=== PATIENT | female | born 1990 | race Caucasian/White ===

== ENCOUNTER 2016-05-30 15:04 | Emergency (ER) | payer OTHER ==
[2016-05-30] MEDS ORDERED: ONDANSETRON 4 MG/2 ML VIAL IVP STA (16:01)
[2016-05-30] MEDS ORDERED: SODIUM CHLORIDE 0.9% 1,000 ML IV STA (16:01)
[2016-05-30] MEDS ORDERED: KETOROLAC 30 MG/ML 1 ML VIAL IVP STA (16:01)
[2016-05-30 16:55] LABS: Appearance,Urine Cloudy (Clear); Bacteria,Urine Rare /hpf; Bilirubin,Urine Negative (Negative); Calcium Oxalate Crystals,Urine Few /hpf; Glucose,Urine (UA) Negative (Negative); Ketones,Urine 2+ (Negative); Leukocyte Esterase,Urine Small (Negative); Mucus,Urine Many /hpf; Nitrite,Urine Negative (Negative); PH, Urine 5.5 (5.0-8.0); Particle Count 15376; Protein,Urine Trace (Negative); RBC,Urine 9 /hpf (0-5); Specific Gravity,Urine 1.025 (1.001-1.035); Squamous Epithelial Cell,Urine 12 /hpf (0-4); UA Billing (MACRO vs. MICRO) MICRO; WBC,Urine 16 /hpf (0-5)
[2016-05-30 16:59] LABS: Basophils % (A) 0 %; CH 31.1; Eosinophils % (A) 0 %; HCT 52.2 % (34.0-46.0); HGB 17.5 gm/dL (11.4-16.0); Luc # (Auto) 0.07; Luc % (Auto) 1; Lymphocytes # (A) 1.1 k/uL (1.0-4.8); Lymphocytes % (A) 17 %; MCH 30.7 pg (25.0-35.0); MCHC 33.5 g/dL (31.0-37.0); MCV 91.7 fL (80.0-100.0); Mean Platelet Volume 6.8; Monocytes # (A) 0.4 k/uL (0-1.0); Monocytes % (A) 6 %; Neutrophils % (A) 76 %; RBC 5.69 m/uL (3.80-5.40); RDW 12.3 % (11.5-15.5); WBC 6.6 k/uL (3.8-10.6); WBC (Perox) 6.78
[2016-05-30 17:03] LABS: ALT 28 U/L (9-52); AST 20 U/L (14-36); Alkaline Phosphatase 65 U/L (38-126); Amylase 37 U/L (30-110); Anion Gap 15 mmol/L; Blood Urea Nitrogen 10 mg/dL (7-17); Calcium 10.5 mg/dL (8.4-10.2); Carbon Dioxide 26 mmol/L (22-30); Chloride 102 mmol/L (98-107); Glucose 107 mg/dL (74-99); Non-African American GFR(MDRD) >60 (>60 ml/min/1.73 sqM); Potassium 5.5 mmol/L (3.5-5.1); Sodium 143 mmol/L (137-145); Total Bilirubin 0.7 mg/dL (0.2-1.3); Total Protein 8.4 g/dL (6.3-8.2)
--- NOTE | 2016-05-30 17:07 | ED ---
Abdominal Pain HPI - General Chief Complaint: Abdominal Pain Stated Complaint: SOB/Dizzy Time Seen by Provider: 05/30/16 15:53 Source: patient, RN notes reviewed Mode of arrival: ambulatory Limitations: no limitations - History of Present Illness Initial Comments: Is a 25-year-old female presents emergency Department chief complaint epigastric pain. Patient states his pain has been for last few days. Patient states she's had nausea vomiting. Patient states she also had some loose stool. Patient states that she's had no pain at this the past. Denies any chance of . Patient denies any dysuria or hematuria. Patient states that she's been unable to eat secondary to pain and the nausea. She states she feels that she is very dizzy and having some shortness of breath. Patient states that when she curls up into all the disposition and helps. Patient denies any cough or chest congestion. Denies any fever or chills. Denies any sick contacts. CPS is in the room at the time and she states that somebody made allegations regarding her kids. Patient denies any illicit drug use. Patient states she is concerned about possible chlamydia exposure - Related Data Previous Rx's Medication Instructions Recorded Famotidine [Pepcid] 20 mg PO BID #28 tablet 05/30/16 Ondansetron Odt [Zofran Odt] 4 mg PO Q8HR PRN #7 tab 05/30/16 Allergies Allergy/AdvReac Type Severity Reaction Status Date / Time No Known Allergies Allergy Verified 05/30/16 16:17 Review of Systems ROS Statement: Those systems with pertinent positive or pertinent negative responses have been documented in the HPI. ROS Other: All systems not noted in ROS Statement are negative. Past Medical History Past Medical History: No Reported History History of Any Multi-Drug Resistant Organisms: None Reported Past Surgical History: Tonsillectomy Past Psychological History: Depression Smoking Status: Current every day smoker Past Alcohol Use History: None Reported Past Drug Use History: None Reported General Exam Limitations: no limitations General appearance: alert, in no apparent distress Head exam: Present: atraumatic, normocephalic, normal inspection Neck exam: Present: normal inspection, full ROM. Absent: tenderness, meningismus, lymphadenopathy Respiratory exam: Present: normal lung sounds bilaterally. Absent: respiratory distress, wheezes, rales, rhonchi, stridor Cardiovascular Exam: Present: regular rate, normal rhythm, normal heart sounds. Absent: systolic murmur, diastolic murmur, rubs, gallop, clicks GI/Abdominal exam: Present: soft, tenderness (Mild epigastric tenderness), normal bowel sounds. Absent: distended, guarding, rebound, rigid Back exam: Absent: CVA tenderness (R), CVA tenderness (L) Neurological exam: Present: alert, oriented X3, CN II-XII intact Skin exam: Present: warm, dry, intact, normal color. Absent: rash Course Vital Signs 05/30/16 15:41 Temperature 98.0 F Pulse Rate 100 Respiratory 18 Rate Blood Pressure 99/65 O2 Sat by Pulse 100 Oximetry - Reevaluation(s) Reevaluation #1: 05/30/16 17:40 Patient was updated on lab results and reevaluated. Patient states her epigastric pain is slightly improved. Patient was informed that she needs a pelvic exam for her STD check though she does not want that she states that her boyfriend are he knows that he has chlamydia and she is requesting treatment. Patient will have urine chlamydia though it's less specific. Medical Decision Making - Medical Decision Making 25-year-old female presented for epigastric pain and dizziness. Patient's x- rays within normal limits. Patient does have polysubstance abuse which includes vitamins, methamphetamine and cocaine. Have a long discussion regarding her drug abuse and possible heart conditions. Patient states that she understands. Patient be discharged with Pepcid for her epigastric discomfort. - Lab Data Result diagrams: 05/30/16 16:33 05/30/16 16:33 Lab Results 05/30/16 05/30/16 05/30/16 Range/Units 16:33 16:33 16:33 WBC 6.6 (3.8-10.6) k/uL RBC 5.69 H (3.80-5.40) m/uL Hgb 17.5 H (11.4-16.0) gm/dL Hct 52.2 H (34.0-46.0) % MCV 91.7 (80.0-100.0) fL MCH 30.7 (25.0-35.0) pg MCHC 33.5 (31.0-37.0) g/dL RDW 12.3 (11.5-15.5) % Plt Count 341 (150-450) k/uL Neutrophils % 76 % Lymphocytes % 17 % Monocytes % 6 % Eosinophils % 0 % Basophils % 0 % Neutrophils # 5.0 (1.3-7.7) k/uL Lymphocytes # 1.1 (1.0-4.8) k/uL Monocytes # 0.4 (0-1.0) k/uL Eosinophils # 0.0 (0-0.7) k/uL Basophils # 0.0 (0-0.2) k/uL Sodium 143 (137-145) mmol/L Potassium 5.5 H (3.5-5.1) mmol/L Chloride 102 (98-107) mmol/L Carbon Dioxide 26 (22-30) mmol/L Anion Gap 15 mmol/L BUN 10 (7-17) mg/dL Creatinine 0.72 (0.52-1.04) mg/dL Est GFR (MDRD) Af Amer >60 (>60 ml/min/1.73 sqM) Est GFR (MDRD) Non-Af >60 (>60 ml/min/1.73 sqM) Glucose 107 H (74-99) mg/dL Calcium 10.5 H (8.4-10.2) mg/dL Total Bilirubin 0.7 (0.2-1.3) mg/dL AST 20 (14-36) U/L ALT 28 (9-52) U/L Alkaline Phosphatase 65 (38-126) U/L Total Protein 8.4 H (6.3-8.2) g/dL Albumin 5.1 H (3.5-5.0) g/dL Amylase 37 (30-110) U/L Lipase 23 (23-300) U/L Urine Color Yellow Urine Appearance Cloudy H (Clear) Urine pH 5.5 (5.0-8.0) Ur Specific [place] 1.025 (1.001-1.035) Urine Protein Trace H (Negative) Urine Glucose (UA) Negative (Negative) Urine Ketones 2+ H (Negative) Urine Blood Negative (Negative) Urine Nitrate Negative (Negative) Urine Bilirubin Negative (Negative) Urine Urobilinogen 2.0 (<2.0) mg/dL Ur Leukocyte Esterase Small H (Negative) Urine RBC 9 H (0-5) /hpf Urine WBC 16 H (0-5) /hpf Ur Squamous Epith Cells 12 H (0-4) /hpf Calcium Oxalate Crystal Few H (None) /hpf Urine Bacteria Rare H (None) /hpf Urine Mucus Many H (None) /hpf Urine HCG, Qual (Not Detectd) Urine Opiates Screen Not Detected (NotDetected) Ur Oxycodone Screen Not Detected (NotDetected) Urine Methadone Screen Not Detected (NotDetected) Ur Propoxyphene Screen Not Detected (NotDetected) Ur Barbiturates Screen Not Detected (NotDetected) U Tricyclic Antidepress Not Detected (NotDetected) Ur Phencyclidine Scrn Not Detected (NotDetected) Ur Amphetamines Screen Detected H (NotDetected) U Methamphetamines Scrn Detected H (NotDetected) U Benzodiazepines Scrn Not Detected (NotDetected) Urine Cocaine Screen Detected H (NotDetected) U Marijuana (THC) Screen Not Detected (NotDetected) 05/30/16 Range/Units 16:33 WBC (3.8-10.6) k/uL RBC (3.80-5.40) m/uL Hgb (11.4-16.0) gm/dL Hct (34.0-46.0) % MCV (80.0-100.0) fL MCH (25.0-35.0) pg MCHC (31.0-37.0) g/dL RDW (11.5-15.5) % Plt Count (150-450) k/uL Neutrophils % % Lymphocytes % % Monocytes % % Eosinophils % % Basophils % % Neutrophils # (1.3-7.7) k/uL Lymphocytes # (1.0-4.8) k/uL Monocytes # (0-1.0) k/uL Eosinophils # (0-0.7) k/uL Basophils # (0-0.2) k/uL Sodium (137-145) mmol/L Potassium (3.5-5.1) mmol/L Chloride (98-107) mmol/L Carbon Dioxide (22-30) mmol/L Anion Gap mmol/L BUN (7-17) mg/dL Creatinine (0.52-1.04) mg/dL Est GFR (MDRD) Af Amer (>60 ml/min/1.73 sqM) Est GFR (MDRD) Non-Af (>60 ml/min/1.73 sqM) Glucose (74-99) mg/dL Calcium (8.4-10.2) mg/dL Total Bilirubin (0.2-1.3) mg/dL AST (14-36) U/L ALT (9-52) U/L Alkaline Phosphatase (38-126) U/L Total Protein (6.3-8.2) g/dL Albumin (3.5-5.0) g/dL Amylase (30-110) U/L Lipase (23-300) U/L Urine Color Urine Appearance (Clear) Urine pH (5.0-8.0) Ur Specific [place] (1.001-1.035) Urine Protein (Negative) Urine Glucose (UA) (Negative) Urine Ketones (Negative) Urine Blood (Negative) Urine Nitrate (Negative) Urine Bilirubin (Negative) Urine Urobilinogen (<2.0) mg/dL Ur Leukocyte Esterase (Negative) Urine RBC (0-5) /hpf Urine WBC (0-5) /hpf Ur Squamous Epith Cells (0-4) /hpf Calcium Oxalate Crystal (None) /hpf Urine Bacteria (None) /hpf Urine Mucus (None) /hpf Urine HCG, Qual Not Detected (Not Detectd) Urine Opiates Screen (NotDetected) Ur Oxycodone Screen (NotDetected) Urine Methadone Screen (NotDetected) Ur Propoxyphene Screen (NotDetected) Ur Barbiturates Screen (NotDetected) U Tricyclic Antidepress (NotDetected) Ur Phencyclidine Scrn (NotDetected) Ur Amphetamines Screen (NotDetected) U Methamphetamines Scrn (NotDetected) U Benzodiazepines Scrn (NotDetected) Urine Cocaine Screen (NotDetected) U Marijuana (THC) Screen (NotDetected) 05/30/16 17:42 EKG performed at 17:41 normal sinus rhythm rate of 90, AK interval 128, QRS duration 72, QT/QTC 378/462 Disposition Clinical Impression: Polysubstance abuse, Gastritis, Dizziness Disposition: HOME SELF-CARE Condition: Stable Instructions: Gastritis (ED) Additional Instructions: Please return to the Emergency Department if symptoms worsen or any other concerns. Prescriptions: Famotidine [Pepcid] 20 mg PO BID #28 tablet Ondansetron Odt [Zofran Odt] 4 mg PO Q8HR PRN #7 tab PRN Reason: Nausea Time of Disposition: 17:43
--- NOTE | 2016-05-30 17:14 | XR ---
EXAMINATION TYPE: XR chest 2V DATE OF EXAM: 05/30/2016 5:10 PM COMPARISON: 10/27/2015 HISTORY: Weakness and abdominal pain TECHNIQUE: Frontal and lateral views of the chest are obtained. FINDINGS: Heart and mediastinum are normal. Lungs are clear. Diaphragm is normal. Bony thorax and so ft tissues appear normal. IMPRESSION: Normal chest. No change.
--- NOTE | 2016-05-30 17:16 | XR ---
EXAMINATION TYPE: XR KUB DATE OF EXAM: 05/30/2016 5:10 PM COMPARISON: NONE HISTORY: Weakness TECHNIQUE: 2 views FINDINGS: There is no sign of intestinal obstruction or pneumoperitoneum. Fecal pattern on the left side is normal. There are some fluid levels in the right colon. There are no pathologic calcification s over the kidneys. Bony structures are intact. IMPRESSION: There are some large bowel air-fluid levels that could relate to diarrhea. No free air.
[2016-05-30] MEDS ORDERED: cefTRIAXone 250 MG VIAL IM STA (17:42)
[2016-05-30] MEDS ORDERED: AZITHROMYCIN 250 MG TAB PO STA (17:42)
[2016-05-30 17:50] VITALS: BP 101/55; PULSE 96; RESP 16; TEMP 99
== END 2016-05-30 18:13 | disposition home or self-care (01) ==
LOC: EC 15:04
DX: K29.70 Gastritis, unspecified, without bleeding (principal); R42 Dizziness and giddiness; F19.10 Other psychoactive substance abuse, uncomplicated; R11.2 Nausea with vomiting, unspecified; F17.200 Nicotine dependence, unspecified, uncomplicated
CPT/HCPCS: 36415; 93005; 80053; 82150; 83690; 85025; 81001; 81025; 87491; 87591; 80306; 71020; 74000; 99284; 96374; 96375; 96372; 96361; J2405; J0696; J1885

== ENCOUNTER 2017-11-21 13:46 | Emergency (ER) | payer OTHER ==
[2017-11-21 13:51] VITALS: RESP 20
[2017-11-21] MEDS ORDERED: SODIUM CHLORIDE 0.9% 1,000 ML IV STA (15:23)
[2017-11-21 15:45] LABS: Basophils # (A) 0.1 k/uL (0-0.2); Basophils % (A) 0 %; Eosinophils % (A) 0 %; HCT 35.6 % (34.0-46.0); HGB 12.2 gm/dL (11.4-16.0); Lymphocytes # (A) 2.7 k/uL (1.0-4.8); Lymphocytes % (A) 23 %; MCH 30.8 pg (25.0-35.0); MCHC 34.4 g/dL (31.0-37.0); MCV 89.7 fL (80.0-100.0); Mean Platelet Volume 6.5; Monocytes # (A) 0.8 k/uL (0-1.0); Monocytes % (A) 7 %; Neutrophils # (A) 7.8 k/uL (1.3-7.7); Neutrophils % (A) 68 %; Platelet Count 355 k/uL (150-450); RBC 3.96 m/uL (3.80-5.40); RDW 13.2 % (11.5-15.5); WBC 11.4 k/uL (3.8-10.6)
[2017-11-21 15:51] LABS: ALT 22 U/L (9-52); AST 19 U/L (14-36); Albumin 3.5 g/dL (3.5-5.0); Alkaline Phosphatase 59 U/L (38-126); Amylase 55 U/L (30-110); Anion Gap 8 mmol/L; Blood Urea Nitrogen 6 mg/dL (7-17); Carbon Dioxide 18 mmol/L (22-30); Chloride 109 mmol/L (98-107); Glucose 85 mg/dL (74-99); Lipase 35 U/L (23-300); Sodium 135 mmol/L (137-145); Total Bilirubin 0.3 mg/dL (0.2-1.3); Total Protein 6.2 g/dL (6.3-8.2)
[2017-11-21 16:07] LABS: HCG,Quantitative Serum 14035.4 mIU/mL
--- NOTE | 2017-11-21 16:51 | US ---
EXAMINATION TYPE: US OB >= 14 wk fetus DATE OF EXAM: 11/21/2017 COMPARISON: None CLINICAL HISTORY: RLQ pain x 2 days, 5, para 1, 3 TECHNIQUE: Transabdominal (TA) GESTATIONAL AGE / DATING Physician Established: Not established yet Dates by LMP: Unknown Dates by First Scan: This is 1st scan Dates by Current Scan: (25 weeks/4 days) EDC: 03/02/2018 SURVEY IUP: Single PLACENTA: Anterior PREVIA: No Previa EMILY: 12.3 cm Normal CERVICAL LENGTH (transabdominal: norm > 3.0cm): 3.3 cm BIOMETRY PRESENTATION: Breech LIE: Longitudinal BPD: 6.4 cm 25 weeks / 6 days HC: 24.5 cm 26 weeks / 4 days AC: 21.1 cm 25 weeks / 5 days FL: 4.7 cm 25 weeks / 4 days ESTIMATED WEIGHT IN GRAMS: 848 grams ESTIMATED WEIGHT IN LBS/OZ: 1 lbs. 14 oz. WEIGHT PERCENTAGE BASED ON ESTABLISHED DATES: n/a HC/AC: 1.16 Normal FL/AC: 22.19 Normal HEART RATE: 142 bpm RHYTHM: Normal IMPRESSION: VIABLE SINGLE IUP MEASURING 25 WEEKS 4 DAYS WITH A HEART RATE OF 142BPM AND ESTIMATED DELIVERY DATE O F 03/02/2018.
--- NOTE | 2017-11-21 16:53 | US ---
EXAMINATION TYPE: US abdomen complete DATE OF EXAM: 11/21/2017 COMPARISON: NONE CLINICAL HISTORY: abdominal pain. RLQ pain x 2 days, not NPO, patient is 25 weeks EXAM MEASUREMENTS: Liver Length: 15.0 cm Gallbladder Wall: 0.2 cm CBD: 0.3 cm Spleen: 11.3 cm Right Kidney: 11.5 x 5.5 x 5.2 cm Left Kidney: 12.2 x 5.8 x 5.5 cm Pancreas: obscured Liver: wnl Gallbladder: wnl Evidence for sonographic Sethi's sign: no CBD: wnl Spleen: wnl Right Kidney: wnl Left Kidney: wnl Upper IVC: wnl Abd Aorta: obscured IMPRESSION: NO ACUTE PROCESS.
--- NOTE | 2017-11-21 17:29 | ED ---
Abdominal Pain HPI - General Chief Complaint: Abdominal Pain Stated Complaint: abd pain, Time Seen by Provider: 11/21/17 15:14 Source: patient Mode of arrival: ambulatory Limitations: no limitations - History of Present Illness Initial Comments: 77 years O female comes in with the abdominal pain now she has a pain in the right lower quadrant area she is nauseous last menstrual. She doesn't know that because she is on a double shot and her periods are quite irregular she denies any vaginal bleeding no spotting she believes she is she did a test at home it was positive no fever no chills no headaches no neck stiffness no chest pain or shortness of breath no pleuritic chest pain no frequency urgency dysuria - Related Data Previous Rx's Medication Instructions Recorded Famotidine [Pepcid] 20 mg PO BID #28 tablet 05/30/16 Ondansetron Odt [Zofran Odt] 4 mg PO Q8HR PRN #7 tab 05/30/16 Allergies Allergy/AdvReac Type Severity Reaction Status Date / Time No Known Allergies Allergy Verified 11/21/17 13:51 Review of Systems ROS Statement: Those systems with pertinent positive or pertinent negative responses have been documented in the HPI. ROS Other: All systems not noted in ROS Statement are negative. Past Medical History Past Medical History: No Reported History History of Any Multi-Drug Resistant Organisms: None Reported Past Surgical History: Tonsillectomy Past Psychological History: Depression Smoking Status: Current every day smoker Past Alcohol Use History: None Reported Past Drug Use History: None Reported General Exam - General Exam Comments Initial Comments: General: The patient is awake and alert, in no distress, and does not appear acutely ill. Skin: Skin is warm and dry and no rashes or lesions are noted. Eye: Pupils are equal, round and reactive to light, extra-ocular movements are intact; there is normal conjunctiva bilaterally. Ears, nose, mouth and throat: There are moist mucous membranes and no oral lesions. Neck: The neck is supple, there is no tenderness or JVD. Cardiovascular: There is a regular rate and rhythm. No murmur, rub or gallop is appreciated. Respiratory: To auscultation bilateral, no wheezing no rhonchi no distress respiratory mora noticed Gastrointestinal: Tenderness noticed in the right side of the abdomen is in the lower quadrant area positive bowel sounds no guarding no rebounds Back: There is no tenderness to palpation in the midline. There is no obvious deformity. Musculoskeletal: Normal ROM, no tenderness, There is no pedal edema. There is no calf tenderness or swelling. No cords were appreciated. Neurological: CN II-XII intact, Cranial nerves III through XII are intact. There are no obvious motor or sensory deficits. Coordination appears grossly intact. Speech is normal. Psychiatric: Cooperative, appropriate mood & affect, normal judgment. Limitations: no limitations Course Vital Signs 11/21/17 13:47 Temperature 98.9 F Pulse Rate 125 H Respiratory 20 Rate Blood Pressure 111/62 O2 Sat by Pulse 100 Oximetry Ultrasound of the pelvis showed viable intrauterine 25 weeks heart rate the baby is 142 THE abdomen for the appendicitis is negative his white count is fine she's afebrile and initial heart rate when she came to was documented 25 I rechecked it myself at 1725 it was 98. related findings were discussed with the patient she was to see Dr. Mosqueda for the follow-up she be referred to Dr. Mosqueda Medical Decision Making - Lab Data Result diagrams: 11/21/17 15:31 11/21/17 15:31 Lab Results 11/21/17 11/21/17 Range/Units 15:31 15:31 WBC 11.4 H (3.8-10.6) k/uL RBC 3.96 (3.80-5.40) m/uL Hgb 12.2 (11.4-16.0) gm/dL Hct 35.6 (34.0-46.0) % MCV 89.7 (80.0-100.0) fL MCH 30.8 (25.0-35.0) pg MCHC 34.4 (31.0-37.0) g/dL RDW 13.2 (11.5-15.5) % Plt Count 355 (150-450) k/uL Neutrophils % 68 % Lymphocytes % 23 % Monocytes % 7 % Eosinophils % 0 % Basophils % 0 % Neutrophils # 7.8 H (1.3-7.7) k/uL Lymphocytes # 2.7 (1.0-4.8) k/uL Monocytes # 0.8 (0-1.0) k/uL Eosinophils # 0.0 (0-0.7) k/uL Basophils # 0.1 (0-0.2) k/uL Sodium 135 L (137-145) mmol/L Potassium 4.0 (3.5-5.1) mmol/L Chloride 109 H (98-107) mmol/L Carbon Dioxide 18 L (22-30) mmol/L Anion Gap 8 mmol/L BUN 6 L (7-17) mg/dL Creatinine 0.40 L (0.52-1.04) mg/dL Est GFR (CKD-EPI)AfAm >90 (>60 ml/min/1.73 sqM) Est GFR (CKD-EPI)NonAf >90 (>60 ml/min/1.73 sqM) Glucose 85 (74-99) mg/dL Calcium 9.0 (8.4-10.2) mg/dL Total Bilirubin 0.3 (0.2-1.3) mg/dL AST 19 (14-36) U/L ALT 22 (9-52) U/L Alkaline Phosphatase 59 (38-126) U/L Total Protein 6.2 L (6.3-8.2) g/dL Albumin 3.5 (3.5-5.0) g/dL Amylase 55 (30-110) U/L Lipase 35 (23-300) U/L HCG, Quant 27720.4 mIU/mL Disposition Clinical Impression: , Abdominal pain Disposition: HOME SELF-CARE Condition: Good Instructions: Abdominal Pain (ED), Abdominal Pain in (ED) Is patient prescribed a controlled substance at d/c from ED?: No Referrals: Lainey Jensen MD [Primary Care Provider] - 1-2 days Elena Mosqueda DO [Doctor of Osteopathic Medicine] - 1-2 days
[2017-11-21 17:43] VITALS: BP 124/77; PULSE 82; TEMP 98
== END 2017-11-21 17:44 | disposition home or self-care (01) ==
LOC: EC 13:46
DX: O99.89 Other specified diseases and conditions complicating pregnancy, childbirth and the puerperium (principal); R10.31 Right lower quadrant pain; R11.0 Nausea; O99.332 Smoking (tobacco) complicating pregnancy, second trimester; F17.200 Nicotine dependence, unspecified, uncomplicated; Z3A.25 25 weeks gestation of pregnancy
CPT/HCPCS: 36415; 76700; 76805; 80053; 82150; 83690; 84702; 85025; 96360; 96361; 99284

== ENCOUNTER 2018-01-07 23:30 | Outpatient (CLI) | payer OTHER ==
[2018-01-08 00:31] LABS: Amorphous Sediment,Urine Rare /hpf; Appearance,Urine Cloudy (Clear); Bacteria,Urine Rare /hpf; Bilirubin,Urine Negative (Negative); Blood,Urine Negative (Negative); Color,Urine Light Yellow; Glucose,Urine (UA) Negative (Negative); Ketones,Urine Negative (Negative); Leukocyte Esterase,Urine Negative (Negative); Mucus,Urine Rare /hpf; Nitrite,Urine Negative (Negative); Protein,Urine Negative (Negative); RBC,Urine 1 /hpf (0-5); Specific Gravity,Urine 1.011 (1.001-1.035); Squamous Epithelial Cell,Urine 6 /hpf (0-4); Urobilinogen,Urine <2.0 mg/dL (<2.0); WBC,Urine 3 /hpf (0-5)
[2018-01-08 00:32] LABS: Amphetamine Screen,Urine Not Detected (NotDetected); Barbiturate Screen,Urine Not Detected (NotDetected); Benzodiazepines Screen,Urine Not Detected (NotDetected); Cocaine Screen,Urine Not Detected (NotDetected); Methadone Screen, Urine Not Detected (NotDetected); Opiate Screen,Urine Not Detected (NotDetected); Oxycodone Screen, Urine Not Detected (NotDetected); Phencyclidine Screen,Urine Not Detected (NotDetected); Tricyclic Antidepressant,Urine Not Detected (NotDetected); Urn Cannabinoid Scrn Not Detected (NotDetected)
[2018-01-08 00:37] LABS: Basophils % (A) 0 %; Eosinophils % (A) 0 %; HCT 33.6 % (34.0-46.0); HGB 11.3 gm/dL (11.4-16.0); Lymphocytes # (A) 2.8 k/uL (1.0-4.8); Lymphocytes % (A) 24 %; MCH 29.8 pg (25.0-35.0); MCHC 33.6 g/dL (31.0-37.0); MCV 88.9 fL (80.0-100.0); Mean Platelet Volume 7.5; Monocytes # (A) 0.9 k/uL (0-1.0); Monocytes % (A) 8 %; Neutrophils # (A) 7.8 k/uL (1.3-7.7); Neutrophils % (A) 66 %; Platelet Count 316 k/uL (150-450); RBC 3.79 m/uL (3.80-5.40); RDW 13.5 % (11.5-15.5); WBC 11.9 k/uL (3.8-10.6)
[2018-01-08 01:18] VITALS: BP 126/79; PULSE 127; RESP 15; TEMP 98
[2018-01-08 12:38] LABS: HIV 1 AB Non-Reactive (Non-Reactive); HIV AB P24 Non-Reactive (Non-Reactive); HIV P24 AG Non-Reactive (Non-Reactive)
--- NOTE | 2018-01-08 13:16 | P.MSEPDOC ---
Presenting Problems - Arrival Data Date of Arrival on Unit: 01/07/18 Time of Arrival on Unit: 23:30 Mode of Transport: Wheelchair - Complaint OB-Reason for Admission/Chief Complaint: Pain, Other Medical History - Information : 5 Para: 1 Term: 1 : 0 Abortions: Spontaneous or Elective: 3 Number of Living Children: 1 - Gestational Age Gestational Age by ZULEIMA (wks/days): 32 Weeks and 3 Days - History Complications: No Care, Smoker Review of Systems - Review of Systems Constitutional: No problems Breast: No problems ENT: No problems Cardiovascular: No problems Respiratory: No problems Gastrointestinal: No problems Genitourinary: No problems Musculoskeletal: No problems Neurological: No problems Skin: No problems Vital Signs - Temperature Temperature: 98 F Temperature Source: Oral - Pulse Pulse Oximetery Pulse Rate: 127 Pulse Assessment Method: Automatic Cuff - Respirations Respiratory Rate: 15 Oxygen Delivery Method: Room Air O2 Sat by Pulse Oximetry: 98 - Blood Pressure Right Arm Blood Pressure: 126/79 Blood Pressure Mean: 94 Blood Pressure Source: Automatic Cuff Medical Screen Scoring (Pre) - Cervical Exam Dilation: 0 cm = 0 Membranes: Intact - Uterine Contractions Frequency: N/A Duration: N/A - Maternal Vital Signs Maternal Temperature: N/A Maternal Blood Pressure: N/A Signs of Preeclampsia: N/A Maternal Respirations: N/A - Pain Assessment Pain Location and Character: Perineal Pain Scale Used: Numeric (1 - 10) Pain Intensity: 2 Pain Management Goal: 2 Pain Description: *Acute, Aching Pain Radiation Location: none Pain Frequency: Intermittent Pain Duration: 2 Pain Duration Units: Days Pain Behavior: Fidgeting Effects of Pain: none Pain Aggravating Factors: None - Maternal Trauma Maternal Trauma: N/A - Assessment Baseline FHR: 135 Heart Rate - NICHD Category: Category I (Normal) = 0 NST: Reactive Position: N/A Station: N/A - Total Score Total Score (Pre): 0 - Level of Risk Level of Risk: Low (0-5) Physician Notification (Pre) - Physician Notified Physician Notified Date: 01/08/18 Physician Notified Time: 01:02 Physician/Practitioner Notifed:: Dr Moon New Order Received: Yes Disposition - Disposition OB Disposition: Discharge to home Discharge Date: 01/08/18 Discharge Time: 01:18 I agree with the RN Medical Screening Exam: Yes Risk & Benefit of care provided described in d/c instruction: Yes Diagnosis: RELATED CONDITIONS, UNSPECIFIED, THIRD TRIMESTER
== END 2018-01-08 01:20 | disposition home or self-care (01) ==
LOC: FBPOP 23:30
PROVIDERS: ATTEND Obstetrics & Gynecology
DX: Z53.9 Procedure and treatment not carried out, unspecified reason (principal)
CPT/HCPCS: 59025; 80306; 81001; 82947; 84112; 85025; 86762; 86780; 86850; 86900; 86901; 87340; 87390; 87491; 87591; 99213

== ENCOUNTER 2018-01-14 17:50 | Outpatient (CLI) | payer OTHER ==
[2018-01-14 20:45] VITALS: BP 110/71; PULSE 111; RESP 18; TEMP 97.5
--- NOTE | 2018-03-13 18:31 | P.MSEPDOC ---
Presenting Problems - Arrival Data Date of Arrival on Unit: 01/14/18 Time of Arrival on Unit: 18:50 Mode of Transport: Ambulatory - Complaint OB-Reason for Admission/Chief Complaint: Possible Onset of Labor Comment: started about 1729 Medical History - Information : 2 Para: 1 Term: 1 : 0 Abortions: Spontaneous or Elective: 0 Number of Living Children: 1 - Gestational Age Gestational Age by ZULEIMA (wks/days): 34 Weeks and 4 Days - History Complications: No Care Review of Systems - Review of Systems Constitutional: No problems Breast: No problems ENT: No problems Cardiovascular: No problems Respiratory: No problems Gastrointestinal: No problems Genitourinary: No problems Musculoskeletal: No problems Neurological: No problems Skin: No problems Vital Signs - Temperature Temperature: 97.5 F Temperature Source: Temporal Artery Scan - Pulse Right Sitting Pulse Rate: 111 Pulse Assessment Method: Automatic Cuff - Respirations Respiratory Rate: 18 Oxygen Delivery Method: Room Air - Blood Pressure Right Arm Sitting Blood Pressure: 110/71 Blood Pressure Mean: 84 Blood Pressure Source: Automatic Cuff Medical Screen Scoring (Pre) - Cervical Exam Dilation: 0 cm = 0 Membranes: Intact - Uterine Contractions Frequency: N/A Duration: N/A Intensity: N/A - Maternal Vital Signs Maternal Temperature: N/A Maternal Blood Pressure: N/A Signs of Preeclampsia: N/A Maternal Respirations: N/A - Pain Assessment Pain Intensity: 0 - Maternal Trauma Maternal Trauma: N/A - Assessment Baseline FHR: 135 Heart Rate - NICHD Category: Category I (Normal) = 0 NST: Reactive Position: N/A Station: N/A - Total Score Total Score (Pre): 0 - Level of Risk Level of Risk: Low (0-5) Physician Notification (Pre) - Physician Notified Physician Notified Date: 01/14/18 Physician Notified Time: 19:36 Physician/Practitioner Notifed:: DR ALBERTO New Order Received: Yes - Notification Comment Comment: d/c home, keep apt for [facility] Disposition - Disposition OB Disposition: Discharge to home, Written follow up instructions reviewed Discharge Date: 01/14/18 Discharge Time: 19:45 I agree with the RN Medical Screening Exam: Yes Risk & Benefit of care provided described in d/c instruction: Yes Diagnosis: FALSE LABOR BEFORE 37 COMPLETED WEEKS OF GEST, THIRD TRI
== END 2018-01-14 19:45 | disposition home or self-care (01) ==
LOC: FBPOP 17:50
PROVIDERS: ATTEND Obstetrics & Gynecology Obstetrics
DX: O47.03 False labor before 37 completed weeks of gestation, third trimester (principal); Z3A.34 34 weeks gestation of pregnancy
CPT/HCPCS: 59025; G0463; 99213

== ENCOUNTER 2018-02-21 21:19 | Inpatient (IN) | payer OTHER ==
[2018-02-21] MEDS ORDERED: CITRIC ACID-SODIUM CITRATE 15 ML CUP PO ONE (21:55)
[2018-02-21] MEDS ORDERED: LACTATED RINGERS 1,000 ML IV ONE (21:55)
[2018-02-21] MEDS ORDERED: DEXTROSE 5% IVPB STA ×2 (21:58)
[2018-02-21] MEDS ORDERED: WATER IVPB STA ×2 (21:58)
[2018-02-21] MEDS ORDERED: PENICILLIN POTASSIUM IVPB STA ×2 (21:58)
[2018-02-21 22:18] LABS: Basophils % (A) 0 %; Eosinophils % (A) 0 %; HCT 36.2 % (34.0-46.0); HGB 11.8 gm/dL (11.4-16.0); Lymphocytes # (A) 2.9 k/uL (1.0-4.8); Lymphocytes % (A) 30 %; MCH 28.3 pg (25.0-35.0); MCHC 32.7 g/dL (31.0-37.0); MCV 86.6 fL (80.0-100.0); Mean Platelet Volume 7.3; Monocytes # (A) 0.8 k/uL (0-1.0); Monocytes % (A) 8 %; Neutrophils # (A) 5.7 k/uL (1.3-7.7); Neutrophils % (A) 58 %; Platelet Count 346 k/uL (150-450); RBC 4.19 m/uL (3.80-5.40); RDW 14.6 % (11.5-15.5); WBC 9.8 k/uL (3.8-10.6)
[2018-02-21] MEDS ORDERED: MORPHINE SULFATE (PF) 0.3 MG/0.3 ML SYR ONE (22:36)
[2018-02-21] MEDS ORDERED: fentaNYL (PF) 50 MCG/ML 2 ML AMP ONE (22:36)
[2018-02-21] MEDS ORDERED: MIDAZOLAM 2 MG/2 ML VIAL ONE (22:36)
[2018-02-21] MEDS ORDERED: ONDANSETRON 4 MG/2 ML VIAL ONE (22:36)
[2018-02-21] MEDS ORDERED: OXYTOCIN 10 UNIT/ML 1 ML VIAL ONE (22:36)
[2018-02-21] MEDS ORDERED: KETOROLAC 30 MG/ML 1 ML VIAL ONE (22:36)
[2018-02-21] MEDS ORDERED: DEXAMETHASONE SOD PHOS (MDV) 100 MG/10 ML VIAL ONE (22:36)
--- NOTE | 2018-02-21 22:37 | P.HPOB ---
History of Present Illness H&P Date: 02/21/18 Chief Complaint: My water broke at 8 PM This is a 27-year-old white female 5 para 1031 EDC 03/05/2018 at 38-2/7 weeks' gestation. Patient has known breech hernandez is scheduled for C- section in 2 days. However, she broke her water at 8 PM tonight, clear fluid. Fetus is been active throughout the . She denies vaginal bleeding or fluid leakage. history is significant for late care. Patient has decided to give her baby up for adoption, adoptive parents are in [place] and have been notified. Past medical history is significant for chlamydia 2, most recent cultures negative in December 2017. Patient also has a history of anxiety and depression, currently on no meds. She has a history of asthma. Past surgical history is negative. Social history patient is single, father of the baby is not involved. She is a history of tobacco smoking, denies alcohol or drug use. Obstetric history blood type is A+, rubella status immune. Hepatitis B surface antigen, HIV testing negative. Group B strep cultures positive. One-hour Glucola 83. Urine drug screen, gonorrhea and chlamydia cultures all negative. ALLERGIES none known. Current medications vitamins daily, inhaler as needed. On exam this is a pleasant white female who is 5 foot 6 inches, 177 pounds, blood pressure 137/79. The general physical exam is within normal limits. Patient does have multiple tattoos on her body. Chest is clear in all [place]. Extremities reveal no edema. Cervix is 1-2 cm dilated, soft, obviously ruptured with clear fluid, non-malodorous. The infant is breech per Jeb's maneuver, confirmed with bedside ultrasound with the head in the patient's left upper quadrant. heart tones consistent with reactive NST. Impression: 38-2/7 weeks intrauterine , breech presentation confirmed by bedside ultrasound, spontaneous amniorrhexis of membranes. Rupee strep cultures positive. Plan: Penicillin G 6 million units is given. Anesthesia staff is aware. Plan is for primary low transverse section at this time. All risks and benefits of procedure have been discussed with the patient in detail, and I believe she understands our discussion. Adoptive parents from [place] have been notified, and on their way. They are 8-9 hours away by car. Review of Systems Constitutional: Reports as per HPI Past Medical History Past Medical History: Cancer Additional Past Medical History / Comment(s): SKIN. Asthma,depression History of Any Multi-Drug Resistant Organisms: None Reported Past Surgical History: Tonsillectomy Past Anesthesia/Blood Transfusion Reactions: No Reported Reaction Smoking Status: Current every day smoker - Past Family History Mother Family Medical History: No Reported History Medications and Allergies Home Medications Medication Instructions Recorded Confirmed Type Pnv No.95/Ferrous Fum/Folic AC 1 tab PO DAILY 01/14/18 02/21/18 History [ Multivitamin Tablet] Allergies Allergy/AdvReac Type Severity Reaction Status Date / Time No Known Allergies Allergy Verified 02/21/18 21:53 Exam Intake and Output 02/21/18 02/21/18 02/21/18 06:59 14:59 22:59 Other: Weight 80.286 kg See dictation under HPI please Results Result Diagrams: 02/21/18 22:08 Assessment and Plan Assessment: 38-2/7 weeks intrauterine , breech presentation, spontaneous amniorrhexis, clear fluid. Positive group B strep cultures. Plan: First dose of penicillin G has been given. Anesthesia staff aware. We will proceed with primary low transverse section. Adoptive parents on route from out of state. Time with Patient: Less than 30
[2018-02-21] MEDS ORDERED: NALBUPHINE 10 MG/ML VIAL (10ML MDV) IV PRN (23:35)
[2018-02-21] MEDS ORDERED: diphenhydrAMINE 50 MG/ML 1 ML VIAL IVP PRN ×3 (23:35→23:45)
[2018-02-21] MEDS ORDERED: NALOXONE 0.4 MG/ML 1 ML VIAL IV PRN ×2 (23:35→23:45)
[2018-02-21] MEDS ORDERED: HYDROmorphone 0.5 MG/0.5 ML SYRINGE IVP PRN (23:35)
[2018-02-21] MEDS ORDERED: HYDROmorphone 1 MG/ML 1 ML SYRINGE IVP PRN (23:37)
[2018-02-21] MEDS ORDERED: diphenhydrAMINE 25 MG CAP PO PRN (23:45)
[2018-02-21] MEDS ORDERED: ACETAMINOPHEN TAB 325 MG TAB PO PRN (23:45)
[2018-02-21] MEDS ORDERED: METOCLOPRAMIDE 5 MG/ML 2 ML VIAL IVP PRN (23:45)
[2018-02-21] MEDS ORDERED: ZOLPIDEM 5 MG TAB PO PRN (23:45)
[2018-02-21] MEDS ORDERED: IBUPROFEN 600 MG TAB PO PRN (23:45)
[2018-02-21] MEDS ORDERED: diphenhydrAMINE 50 MG CAP PO PRN (23:45)
[2018-02-21] MEDS ORDERED: ONDANSETRON 4 MG/2 ML VIAL IVP PRN (23:45)
--- NOTE | 2018-02-21 23:45 | P.OP ---
Date of Procedure: 02/21/18 Preoperative Diagnosis: 38-2/7 weeks intrauterine , breech presentation, spontaneous amniorrhexis, positive group B strep cultures Postoperative Diagnosis: Liveborn female , 3610 g, 7 lbs. 15 oz., normal-appearing tubes and ovaries, breech presentation. Procedure(s) Performed: Primary low transverse section Anesthesia: spinal Surgeon: Julieta Martinez Small Kick Press Operator #1: Natalie Mcdaniels Estimated Blood Loss (ml): 200 IV fluids (ml): 1,200 Urine output (ml): 30 Pathology: none sent Condition: stable Disposition: PACU Description of Procedure: Patient has a known breech presentation, scheduled for section in 2 days. She however presented with spontaneous amniorrhexis, clear fluid. Antibiotics are given. Consent is reviewed signed witnessed and dated. Adoptive parents are notified, they are arriving from [place], 7-8 hours away. Patient is brought to the operating suite where a spinal analgesia with Duramorph is given. Germain catheter placed to direct drainage. She is then placed in the dorsal lithotomy position with left lateral uterine displacement. The appropriate timeout is performed to assure proper patient and procedural identification. The analgesia is checked and noted to be adequate. A low transverse skin incision is made in this is carried down through the subcutaneous tissue to the fascia. Fascia is isolated, scored and extended bilaterally with curved Astudillo scissors. Peritoneum is next identified and incised, there is no bowel or bladder involvement. Bladder flap is made with Metzenbaum scissors and at all times the bladder is Well from the operative field to avoid bladder and/or ureteral injury. A low transverse uterine incision is made in this is carried down through the myometrium. The cavity is entered and the incision is extended bilaterally with blunt dissection. Sacrum is rotated to anterior. The breech is delivered easily, Pinard maneuver issues for the lower extremities. A blue towel was wrapped over the 's trunk and Pinard maneuver is once again used to deliver the upper extremities. The head is delivered in a flexed position. Patient is officially delivered of a liveborn female at 05/20/2000 hours. Umbilical cord is doubly clamped and ligated, she is handed to waiting nurses for evaluation where scores of 6 and 7 at one and 5 minutes, 9 at 10 minutes were given. The placenta is delivered manually, it is inspected and noted to be intact with trivascular cord at 05/20/2001 hours. The uterus is then externalized and massaged. It is swept clean with a sterile sponge to avoid any retained products of conception. The uterus is closed in a two-step fashion, first layer running locking 0 Vicryl, second layer imbricated. There is a fibroid noted in the lower uterine segment near the site of the incision. Hemostasis is excellent. Bilateral tubes and ovaries are inspected and noted to be normal. Suction with guard is used posterior to the uterus and then the uterus is gently placed back into the abdominal cavity. Bilateral gutters are inspected and cleaned. Uterine incision is clean and dry and fully intact. Peritoneum was allowed close by secondary intention. Fascia is closed in a running stitch of 0 Vicryl with over ligation in the midline for excellent reapproximation. Subcutaneous tissue is irrigated, noted to be clean and dry. It is reapproximated with 3-0 Vicryl in a running fashion. 4-0 undyed Vicryl issues for final skin closure. Steri-Strips and Mastisol are applied to the wound. All sponge needle and enhancement counts are correct at the end of the procedure. Total estimated blood loss 200 mL's. Germain is noted to be draining clear urine. All sponge needle and instrument counts are correct at the end of the procedure. Patient is brought back to recovery room in stable condition, blood pressure 108/62, pulse 91. Adoptive parents are contacted, they are on the road, they are reassured that this is a is doing well.
[2018-02-22] MEDS: ALBUTEROL NEBULIZED 2.5 MG/3 ML INHALATION PRN ×2 (00:20→07:01)
[2018-02-22 02:18] VITALS: BMI 28.5
[2018-02-22] MEDS: LACTATED RINGERS 1,000 ML IV SCH ×3 (03:04→23:32)
[2018-02-22] MEDS: NICOTINE 14MG/24HR PATCH TRANSDERM SCH (03:05)
[2018-02-22 07:06] LABS: Basophils % (A) 0 %; Eosinophils % (A) 0 %; HCT 32.2 % (34.0-46.0); HGB 10.5 gm/dL (11.4-16.0); Lymphocytes # (A) 1.8 k/uL (1.0-4.8); Lymphocytes % (A) 10 %; MCHC 32.6 g/dL (31.0-37.0); Mean Platelet Volume 7.5; Monocytes # (A) 0.7 k/uL (0-1.0); Monocytes % (A) 4 %; Neutrophils % (A) 85 %; Platelet Count 314 k/uL (150-450); RBC 3.62 m/uL (3.80-5.40); RDW 14.5 % (11.5-15.5); WBC 17.7 k/uL (3.8-10.6)
[2018-02-22] MEDS: SENNOSIDES-DOCUSATE SODIUM 1 EACH TAB PO SCH ×2 (07:45→22:01)
[2018-02-22] MEDS: KETOROLAC 30 MG/ML 1 ML VIAL IVP PRN ×2 (07:50→15:45)
[2018-02-22] MEDS ORDERED: ALBUTEROL NEBULIZED 2.5 MG/3 ML INHALATION PRN (08:12)
--- NOTE | 2018-02-22 08:20 | P.PNOBGPC ---
Subjective - Subjective Principal diagnosis: POD 1 LTCS Breech Interval history: Patient did well overnight, she states her pain is well-controlled, she is ambulating and voiding without difficulty. She is hungry and requesting a regular diet at this time. She states her lochia is minimal. She is planning to get the baby up for adoption at this time. Patient reports: Reports appetite normal, Reports voiding normally, Reports pain well controlled, Reports ambulating normally Reliance: doing well (Giving the baby up for adoption) Objective - Vital Signs Latest vital signs: Vital Signs Temp Pulse Pulse Pulse Pulse Resp BP 02/22/18 07:11 104 H 02/22/18 07:01 104 H 02/22/18 05:45 16 02/22/18 04:35 02/22/18 04:00 97.6 F 98 16 02/22/18 02:35 16 02/22/18 02:17 98.1 F 104 H 18 02/22/18 01:33 98.6 F 90 16 02/22/18 01:03 100 16 02/22/18 00:35 100 16 02/22/18 00:33 70 16 02/22/18 00:20 100 02/22/18 00:18 71 16 109/58 02/22/18 00:03 87 16 118/62 02/21/18 23:48 81 16 127/71 02/21/18 23:35 16 02/21/18 23:33 98.6 F 95 16 127/69 BP BP Pulse Ox 02/22/18 07:11 02/22/18 07:01 02/22/18 05:45 02/22/18 04:35 97 02/22/18 04:00 116/63 97 02/22/18 02:35 02/22/18 02:17 137/79 02/22/18 01:33 153/67 97 02/22/18 01:03 140/66 97 02/22/18 00:35 100 02/22/18 00:33 02/22/18 00:20 02/22/18 00:18 98 02/22/18 00:03 100 02/21/18 23:48 100 02/21/18 23:35 98 02/21/18 23:33 98 Intake and Output 02/21/18 02/22/18 02/22/18 22:59 06:59 14:59 Output Total 430 Balance -430 Output: Urine 230 Estimated Blood Loss 200 Other: # Voids 1 Weight 80.286 kg 80.286 kg - Exam Extremities: Present: normal Abdomen: Present: normal appearance, soft Incision: Present: normal, dry, intact Uterus: Present: normal, firm - Labs Labs: Abnormal Lab Results - Last 24 Hours (Table) 02/22/18 Range/Units 06:22 WBC 17.7 H (3.8-10.6) k/uL RBC 3.62 L (3.80-5.40) m/uL Hgb 10.5 L (11.4-16.0) gm/dL Hct 32.2 L (34.0-46.0) % Neutrophils # 15.0 H (1.3-7.7) k/uL Assessment and Plan (1) Term Current Visit: Yes Status: Acute Code(s): Z34.80 - ENCOUNTER FOR SUPRVSN OF NORMAL , UNSP TRIMESTER SNOMED Code(s): 44546758 (2) Breech presentation Current Visit: Yes Status: Acute Code(s): O32.1XX0 - MATERNAL CARE FOR BREECH PRESENTATION, UNSP SNOMED Code(s): 7940590 (3) S/P section Current Visit: Yes Status: Acute Code(s): Z98.891 - HISTORY OF UTERINE SCAR FROM PREVIOUS SURGERY SNOMED Code(s): 229719951 Plan: Patient is doing well postoperatively, and we will continue routine postoperative care. I will anticipate discharge tomorrow morning.
[2018-02-22] MEDS ORDERED: NICOTINE 14MG/24HR PATCH TRANSDERM SCH (09:00)
[2018-02-22] MEDS ORDERED: PRENATAL VIT-IRON-FOLIC ACID 1 EACH CAP PO SCH (12:00)
--- NOTE | 2018-02-22 13:13 | P.PN ---
Progress Note - Text Anesthesia POD 1. Patient is status post section under spinal anesthesia with intra-thecal preservative free morphine and 100 g. Mild pruritus, good post-op analgesia, and no headache or other complications.
[2018-02-22 19:04] VITALS: RESP 16
[2018-02-22] MEDS: HYDROcodone/APAP 5-325MG 1 EACH TAB PO PRN (22:00)
[2018-02-23] MEDS: NICOTINE 14MG/24HR PATCH TRANSDERM SCH (07:09)
[2018-02-23] MEDS: HYDROcodone/APAP 5-325MG 1 EACH TAB PO PRN ×3 (07:13→16:00)
[2018-02-23 08:00] VITALS: TEMP 97.5
[2018-02-23] MEDS: SENNOSIDES-DOCUSATE SODIUM 1 EACH TAB PO SCH (08:02)
[2018-02-23] MEDS: ALBUTEROL NEBULIZED 2.5 MG/3 ML INHALATION PRN (08:16)
--- NOTE | 2018-02-23 08:45 | P.DS ---
Providers Date of admission: 02/21/18 21:49 Expected date of discharge: 02/23/18 Attending physician: Noelle Harris Primary care physician: Stated None - Discharge Diagnosis(es) (1) Term Current Visit: Yes Status: Acute (2) Breech presentation Current Visit: Yes Status: Acute (3) S/P section Current Visit: Yes Status: Acute Hospital Course: This is a 27-year-old 2 para 1 at 38-2/7 weeks that presented to labor and delivery with spontaneous rupture of membranes. Patient had known breech presentation and was taken for primary low transverse section secondary to breech presentation. was performed without difficulty for further details on the please see the operative report. Patient delivered a viable female at 2301, weight of 7 lbs. 15 oz., Apgars of 679 at one and 5 and 10 minutes respectively. Patient is giving this baby up for adoption and the adoptive parents are here on the unit. Patient's postoperative course has been uneventful. She is ambulating and voiding without difficulty. She is tolerating a regular diet without nausea or vomiting. She states her pain is controlled with oral medication. Patient Condition at Discharge: Good Plan - Discharge Summary New Discharge Prescriptions: No Action Pnv No.95/Ferrous Fum/Folic AC [ Multivitamin Tablet] 1 tab PO DAILY Albuterol Inhaler [Ventolin Hfa Inhaler] 2 puff INHALATION Q6HR PRN PRN Reason: Dyspnea Discharge Medication List Pnv No.95/Ferrous Fum/Folic AC [ Multivitamin Tablet] 1 tab PO DAILY [History] Albuterol Inhaler [Ventolin Hfa Inhaler] 2 puff INHALATION Q6HR PRN 02/22/18 [ History] Follow up Appointment(s)/Referral(s): Noelle Harris DO [Doctor of Osteopathic Medicine] - 2 Weeks Patient Instructions/Handouts: (DC), (GEN) Activity/Diet/Wound Care/Special Instructions: No tub baths or intercourse until appointment Discharge Disposition: HOME SELF-CARE
[2018-02-23 15:55] VITALS: BP 114/67; PULSE 79
== END 2018-02-23 19:15 | disposition home or self-care (01) | DRG 788 ==
LOC: FBPOP 21:19 → 4FBP 21:49
PROVIDERS: ADMIT Obstetrics & Gynecology; ATTEND Obstetrics & Gynecology Obstetrics
PROC: 10D00Z1 Extraction of Products of Conception, Low, Open Approach (ICD-10-PCS; principal; 2018-02-21 22:34)
DX: O32.1XX0 Maternal care for breech presentation, not applicable or unspecified (principal); O99.334 Smoking (tobacco) complicating childbirth; F17.200 Nicotine dependence, unspecified, uncomplicated; Z3A.38 38 weeks gestation of pregnancy; Z37.0 Single live birth; O99.824 Streptococcus B carrier state complicating childbirth
CPT/HCPCS: 85025; 86850; 86900; 86901; 94640

== ENCOUNTER 2019-12-09 19:45 | Outpatient (CLI) | payer OTHER ==
[2019-12-09 21:34] VITALS: BP 130/70; PULSE 100; RESP 18; TEMP 98.4
--- NOTE | 2019-12-17 11:30 | P.MSEPDOC ---
Presenting Problems - Arrival Data Date of Arrival on Unit: 12/09/19 Time of Arrival on Unit: 19:45 Mode of Transport: EMS - Complaint OB-Reason for Admission/Chief Complaint: Possible Onset of Labor, Rule Out PROM Comment: gush of bloody mucus at 1830 and contractions since last night Medical History - Information : 3 Para: 2 Term: 2 : 0 Abortions: Spontaneous or Elective: 0 Number of Living Children: 2 - Gestational Age Gestational Age by ZULEIMA (wks/days): 26 Weeks and 6 Days - History Complications: Prior , Hx. Substance Abuse Sexually Transmitted Diseases: HSV Comment: Hx of meth and marijuana use prior to being in nursing home Review of Systems - Review of Systems Constitutional: No problems Breast: No problems ENT: No problems Cardiovascular: No problems Respiratory: No problems Gastrointestinal: No problems Genitourinary: No problems Musculoskeletal: No problems Neurological: No problems Skin: No problems Vital Signs - Temperature Temperature: 98.4 F Temperature Source: Temporal Artery Scan - Pulse Pulse Oximetery Pulse Rate: 100 Pulse Assessment Method: Pulse Oximetry - Respirations Respiratory Rate: 18 Oxygen Delivery Method: Room Air O2 Sat by Pulse Oximetry: 99 - Blood Pressure Right Arm Blood Pressure: 130/70 Blood Pressure Mean: 90 Blood Pressure Source: Automatic Cuff Medical Screen Scoring (Pre) - Cervical Exam Dilation: 0 cm = 0 Effacement: Exam Deferred Membranes: Intact - Uterine Contractions Frequency: N/A Duration: N/A Intensity: N/A - Maternal Vital Signs Maternal Temperature: N/A Maternal Blood Pressure: N/A Signs of Preeclampsia: N/A Maternal Respirations: N/A - Maternal Trauma Maternal Trauma: N/A - Assessment - Baby A Baseline FHR: 145 Heart Rate - NICHD Category: Category I (Normal) = 0 Position: N/A Station: N/A - Total Score - Baby A Total Score - Baby A: 0 - Total Score - Baby B Total Score - Baby B: 0 - Total Score - Baby C Total Score - Baby C: 0 - Level of Risk - Baby A Level of Risk - Baby A: Low (0-5) - Level of Risk - Baby B Level of Risk - Baby B: Low (0-5) - Level of Risk - Baby C Level of Risk - Baby C: Low (0-5) Physician Notification (Pre) - Physician Notified Physician Notified Date: 12/09/19 Physician Notified Time: 20:45 New Order Received: Yes - Notification Comment Comment: Dr. Martinez called, report given on maternal and status, Pt has complains. of sharp lower abdominal and back pain since last night and a "gush of bloody mucus". around 1830 today. FFN collected, amnisure negative, SVE closed/thick/high. Abdomen soft to palpation even when pt states she is having the pain. No blood seen upon exam. Pt has been in nursing home since 10/08/19, no intercourse and denies any drug use since June(previously meth and marijuana). No contractions seen on the monitor and FHR is reactive for 26weeks. Pt has a hx of prior (does not know the reason) and an outbreak of genital herpes on 11/14/19 and is currently being treated. Orders to discharge pt back to the nursing home with instructions to make an appointment with Dr. Richmond within 1 week. Disposition - Disposition OB Disposition: Physician follow up in office, Discharge to home Discharge Date: 12/09/19 Discharge Time: 21:10 I agree with the RN Medical Screening Exam: Yes Risk & Benefit of care provided described in d/c instruction: Yes Diagnosis: SPOTTING COMPLICATING , SECOND TRIMESTER
== END 2019-12-09 21:10 | disposition home or self-care (01) ==
LOC: FBPOP 19:45
PROVIDERS: ATTEND Obstetrics & Gynecology
DX: O26.852 Spotting complicating pregnancy, second trimester (principal); Z3A.26 26 weeks gestation of pregnancy
CPT/HCPCS: 96360; 96361; 84112; G0463; 99213; 99214

== ENCOUNTER 2020-01-22 18:15 | Outpatient (CLI) | payer OTHER ==
[2020-01-22 18:47] LABS: Appearance,Urine Cloudy (Clear); Bacteria,Urine Few /hpf; Bilirubin,Urine Negative (Negative); Blood,Urine Negative (Negative); Budding Yeast,Urine Occasional /hpf; Color,Urine Colorless; Glucose,Urine (UA) Negative (Negative); Ketones,Urine Negative (Negative); Leukocyte Esterase,Urine Trace (Negative); Nitrite,Urine Negative (Negative); Protein,Urine Negative (Negative); RBC,Urine 1 /hpf (0-5); Specific Gravity,Urine 1.003 (1.001-1.035); Squamous Epithelial Cell,Urine 8 /hpf (0-4); Urobilinogen,Urine <2.0 mg/dL (<2.0); WBC,Urine 3 /hpf (0-5)
[2020-01-22] MEDS ORDERED: FLUCONAZOLE 150 MG TAB PO STA (19:14)
[2020-01-22 19:21] VITALS: BP 129/55; PULSE 99; RESP 16; TEMP 97.5
--- NOTE | 2020-01-30 17:15 | P.MSEPDOC ---
Presenting Problems - Arrival Data Date of Arrival on Unit: 01/22/20 Time of Arrival on Unit: 18:10 Mode of Transport: Wheelchair - Complaint OB-Reason for Admission/Chief Complaint: Pain Comment: Back pain x 3 days, leaking-unsure if fluid or urine Medical History - Information : 3 Para: 2 Term: 2 : 0 Abortions: Spontaneous or Elective: 0 Number of Living Children: 2 - Gestational Age Gestational Age by ZULEIMA (wks/days): 33 Weeks and 1 Days - History Complications: Prior Review of Systems - Review of Systems Constitutional: No problems Breast: No problems ENT: No problems Cardiovascular: No problems Respiratory: No problems Gastrointestinal: No problems Genitourinary: Urgency, Increased frequency Musculoskeletal: No problems Neurological: No problems Skin: No problems Vital Signs - Temperature Temperature: 97.5 F Temperature Source: Temporal Artery Scan - Pulse Right Sitting Brachial Pulse Rate: 99 Pulse Assessment Method: Automatic Cuff - Respirations Respiratory Rate: 16 Oxygen Delivery Method: Room Air O2 Sat by Pulse Oximetry: 98 - Blood Pressure Right Arm Sitting Blood Pressure: 129/55 Blood Pressure Mean: 79 Blood Pressure Source: Automatic Cuff Medical Screen Scoring (Pre) - Cervical Exam Dilation: 0 cm = 0 Membranes: Intact - Uterine Contractions Frequency: N/A - Maternal Vital Signs Maternal Temperature: N/A Maternal Blood Pressure: N/A Signs of Preeclampsia: N/A Maternal Respirations: N/A - Maternal Trauma Maternal Trauma: N/A - Assessment - Baby A Baseline FHR: 145 Heart Rate - NICHD Category: Category I (Normal) = 0 NST: Reactive Position: N/A Station: N/A - Total Score - Baby A Total Score - Baby A: 0 - Total Score - Baby B Total Score - Baby B: 0 - Total Score - Baby C Total Score - Baby C: 0 - Level of Risk - Baby A Level of Risk - Baby A: Low (0-5) - Level of Risk - Baby B Level of Risk - Baby B: Low (0-5) - Level of Risk - Baby C Level of Risk - Baby C: Low (0-5) Physician Notification (Pre) - Physician Notified Physician Notified Date: 01/22/20 Physician Notified Time: 19:10 New Order Received: Yes - Notification Comment Comment: Ashley liang\Dr. Harris, reviewed pt c/o, reviewed UA results, SVE closed/50/- 2, Reactive NST, 1 contraction/1hr. States to provide pt with Diflucan 150mg PO once and d/c back to [facility]. Pt to follow up in office as scheduled. Disposition - Disposition OB Disposition: Discharge to home, Written follow up instructions reviewed Discharge Date: 01/22/20 Discharge Time: 19:40 I agree with the RN Medical Screening Exam: Yes Risk & Benefit of care provided described in d/c instruction: Yes Diagnosis: LOW BACK PAIN
== END 2020-01-22 19:41 ==
LOC: FBPOP 18:15
PROVIDERS: ATTEND Obstetrics & Gynecology Obstetrics
DX: O99.891 Other specified diseases and conditions complicating pregnancy (principal); M54.5 Low back pain; Z3A.33 33 weeks gestation of pregnancy; Z98.890 Other specified postprocedural states
CPT/HCPCS: 59025; 81001; G0463; 99213

== ENCOUNTER 2020-01-30 20:36 | Outpatient (CLI) | payer OTHER ==
[2020-01-30 21:13] LABS: Appearance,Urine Clear (Clear); Bilirubin,Urine Negative (Negative); Blood,Urine Negative (Negative); Color,Urine Light Yellow; Glucose,Urine (UA) Negative (Negative); Ketones,Urine Negative (Negative); Leukocyte Esterase,Urine Negative (Negative); Nitrite,Urine Negative (Negative); PH, Urine 7.5 (5.0-8.0); Protein,Urine Negative (Negative); Specific Gravity,Urine 1.009 (1.001-1.035); Urobilinogen,Urine <2.0 mg/dL (<2.0)
[2020-01-31 00:58] VITALS: BP 122/61; PULSE 97; RESP 16; TEMP 97.3
--- NOTE | 2020-02-08 09:22 | P.MSEPDOC ---
Presenting Problems - Arrival Data Date of Arrival on Unit: 01/30/20 Time of Arrival on Unit: 20:32 Mode of Transport: Ambulatory - Complaint OB-Reason for Admission/Chief Complaint: Pain, Other Comment: loss of mucus plug, spotting this am, back pain/cramping and cervical pain Medical History - Information : 3 Para: 2 Term: 2 : 0 Abortions: Spontaneous or Elective: 0 Number of Living Children: 2 - Gestational Age Gestational Age by ZULEIMA (wks/days): 34 Weeks and 3 Days - History Complications: Prior Review of Systems - Review of Systems Constitutional: No problems Breast: No problems ENT: No problems Cardiovascular: No problems Respiratory: No problems Gastrointestinal: No problems Genitourinary: No problems Musculoskeletal: No problems Neurological: No problems Skin: No problems Vital Signs - Temperature Temperature: 97.3 F Temperature Source: Temporal Artery Scan - Pulse Right Pulse Rate: 97 Pulse Assessment Method: Pulse Oximetry - Respirations Respiratory Rate: 16 Oxygen Delivery Method: Room Air O2 Sat by Pulse Oximetry: 98 - Blood Pressure Right Arm Blood Pressure: 122/61 Blood Pressure Mean: 81 Blood Pressure Source: Automatic Cuff Medical Screen Scoring (Pre) - Cervical Exam Dilation: 0 cm = 0 Effacement: More than 50% = 2 Membranes: Intact - Uterine Contractions Frequency: N/A Duration: N/A Intensity: N/A - Maternal Vital Signs Maternal Temperature: N/A Maternal Blood Pressure: N/A Signs of Preeclampsia: N/A Maternal Respirations: N/A - Maternal Trauma Maternal Trauma: N/A - Assessment - Baby A Baseline FHR: 135 Heart Rate - NICHD Category: Category I (Normal) = 0 NST: Reactive Position: N/A - Total Score - Baby A Total Score - Baby A: 2 - Total Score - Baby B Total Score - Baby B: 2 - Total Score - Baby C Total Score - Baby C: 2 - Level of Risk - Baby A Level of Risk - Baby A: Low (0-5) - Level of Risk - Baby B Level of Risk - Baby B: Low (0-5) - Level of Risk - Baby C Level of Risk - Baby C: Low (0-5) Physician Notification (Pre) - Physician Notified Physician Notified Date: 01/30/20 Physician Notified Time: 20:52 New Order Received: Yes - Notification Comment Comment: reported on pt's c/o losing her mucus plug and spotting this. morning, back pain/cramping, cervical pain. Dr Harris reviewed fhts, no cntrx. orders to. collect ffn, check cervix. if closed, do not send ffn. recheck cervix after 1 hr, and. send UA. if no cervical change and UA is WNL, pt may be d/c'd back to long-term with officer. Disposition - Disposition OB Disposition: Discharge to home, Written follow up instructions reviewed Transferred to:: [facility] Discharge Date: 01/30/20 Discharge Time: 22:10 I agree with the RN Medical Screening Exam: Yes Risk & Benefit of care provided described in d/c instruction: Yes Diagnosis: FALSE LABOR BEFORE 37 COMPLETED WEEKS OF GEST, THIRD TRI
== END 2020-01-30 22:10 | disposition home or self-care (01) ==
LOC: FBPOP 20:36
PROVIDERS: ATTEND Obstetrics & Gynecology Obstetrics
DX: O47.03 False labor before 37 completed weeks of gestation, third trimester (principal); Z3A.34 34 weeks gestation of pregnancy
CPT/HCPCS: 59025; 81003; G0463; 99213

== ENCOUNTER 2020-02-07 22:31 | Observation (INO) | payer OTHER ==
[2020-02-07] MEDS ORDERED: LACTATED RINGERS 1,000 ML IV ONE (22:53)
[2020-02-07 23:15] LABS: Appearance,Urine Clear (Clear); Bilirubin,Urine Negative (Negative); Blood,Urine Negative (Negative); Color,Urine Colorless; Glucose,Urine (UA) Negative (Negative); Ketones,Urine Negative (Negative); Leukocyte Esterase,Urine Trace (Negative); Nitrite,Urine Negative (Negative); Protein,Urine Negative (Negative); Specific Gravity,Urine 1.003 (1.001-1.035); Squamous Epithelial Cell,Urine 3 /hpf (0-4); Urobilinogen,Urine <2.0 mg/dL (<2.0); WBC,Urine 2 /hpf (0-5)
[2020-02-07] MEDS: TERBUTALINE 1 MG/ML VIAL SQ PRN (23:57)
[2020-02-08] MEDS: TERBUTALINE 1 MG/ML VIAL SQ PRN ×2 (00:22→00:40)
[2020-02-08] MEDS ORDERED: BUTORPHANOL 1 MG/ML 1 ML VIAL IV PRN (03:04)
[2020-02-08] MEDS ORDERED: ACETAMINOPHEN TAB 325 MG TAB PO PRN (03:04)
[2020-02-08 03:16] VITALS: BP 110/66; PULSE 94; RESP 16; TEMP 96.9
[2020-02-08] MEDS: LACTATED RINGERS 1,000 ML IV SCH ×2 (07:21)
--- NOTE | 2020-02-08 08:58 | P.HPOB ---
History of Present Illness H&P Date: 02/08/20 Chief Complaint: IUP @ 35 4/7 weeks, contractions This is a 29 yo G4P 2011 at 35-4/7 weeks that presented to labor and delivery last evening with complaints of contractions. Patient was noted to be writhing around in the bed and very uncomfortable. IV fluids were started which slowed the contractions she was given 3 doses of terbutaline contractions ceased. Patient was still noting significant pain. On questioning this morning patient notes she was having low back pain and her carpal tunnel symptoms were very bothersome. Patient notes good movement denies contractions. Patient has been sleeping since 4 AM. Patient denies vaginal bleeding or loss of fluid. Review of Systems Constitutional: Denies chills, Denies fatigue, Denies fever Ears, nose, mouth and throat: Denies headache Cardiovascular: Reports leg edema Respiratory: Denies dyspnea Gastrointestinal: Denies constipation, Denies diarrhea, Denies nausea, Denies vomiting Genitourinary: Reports Past Medical History Past Medical History: Cancer Additional Past Medical History / Comment(s): SKIN. 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 Past Anesthesia/Blood Transfusion Reactions: No Reported Reaction Past Psychological History: Bipolar, Depression Additional Psychological History / Comment(s): not medicated Smoking Status: Former smoker Past Alcohol Use History: None Reported Additional Past Alcohol Use History / Comment(s): smokes 6 cigarettes daily- since age 12 Past Drug Use History: None Reported - Past Family History Mother Family Medical History: Thyroid Disorder Medications and Allergies Home Medications Medication Instructions Recorded Confirmed Type Pnv No.95/Ferrous Fum/Folic AC 1 tab PO DAILY 01/14/18 02/07/20 History [ Multivitamin Tablet] Loratadine [Claritin] 10 mg PO DAILY 01/22/20 02/07/20 History Allergies Allergy/AdvReac Type Severity Reaction Status Date / Time No Known Allergies Allergy Verified 02/07/20 22:52 Exam Osteopathic Statement: *. No significant issues noted on an osteopathic structural exam other than those noted in the History and Physical/Consult. Vital Signs Temp Pulse Resp BP 02/07/20 22:53 96.9 F L 94 16 110/66 Intake and Output 02/07/20 02/08/20 02/08/20 22:59 06:59 14:59 Other: # Voids 3 Weight 87.09 kg 87.09 kg Targeted physical exam is performed and state in general this a well-nourished well-developed female in no acute distress. Patient was sleeping upon entering the room. Breathing is noted to be nonlabored, heart has regular rate and rhythm, abdomen is gravid and appropriate for gestational age, heart tones returned be category 1 and she is not sridhar on the monitor. Cervical exam is deferred as she was closed last evening 2. Results Abnormal Lab Results - Last 24 Hours (Table) 02/07/20 Range/Units 23:02 Ur Leukocyte Esterase Trace H (Negative) Assessment and Plan (1) 35 weeks gestation of Current Visit: Yes Status: Acute Code(s): Z3A.35 - 35 WEEKS GESTATION OF SNOMED Code(s): 73479618 (2) contractions Current Visit: Yes Status: Acute Code(s): O47.9 - FALSE LABOR, UNSPECIFIED SNOMED Code(s): 242368188 Plan: This 29-year-old 4 para 2011 at 35-4/7 weeks presented to labor and delivery last evening with complaints of contractions. Upon further questioning this morning it was low back pain radiating through her thighs and carpal tunnel pain. Patient states she is feeling much better this morning. She slept last evening. She is noting good movement. She will be discharged home back to the intermediate. labor precautions are reviewed.
--- NOTE | 2020-02-08 08:59 | P.DS ---
Providers Date of admission: 02/08/20 01:22 Expected date of discharge: 02/08/20 Attending physician: Noelle Harris Primary care physician: Stated None - Discharge Diagnosis(es) (1) 35 weeks gestation of Current Visit: Yes Status: Acute (2) contractions Current Visit: Yes Status: Acute Hospital Course: This is a 29-year-old 4 para 2011 at 35-4/7 weeks that presented to labor and delivery last evening with complaints of contractions. Patient was noted to be rsidhar on the monitor IV fluids were started along with 3 doses of terbutaline. Contractions did cease after terbutaline and fluids, patient was still noted to have significant discomfort therefore she was observed over the night. Patient was noted to be comfortable around 4 AM she fell asleep. Patient denies contractions this morning, and on further questioning she states the pain was more low back radiating to her thighs, carpal tunnel pain in her wrists. Patient denies contractions this morning. She states that she is comfortable and is ready for discharge back to the long term. Patient Condition at Discharge: Good Plan - Discharge Summary New Discharge Prescriptions: No Action Pnv No.95/Ferrous Fum/Folic AC [ Multivitamin Tablet] 1 tab PO DAILY Loratadine [Claritin] 10 mg PO DAILY Discharge Medication List Pnv No.95/Ferrous Fum/Folic AC [ Multivitamin Tablet] 1 tab PO DAILY 01/14/18 [History] Loratadine [Claritin] 10 mg PO DAILY 01/22/20 [History] Follow up Appointment(s)/Referral(s): Noelle Harris DO [Doctor of Osteopathic Medicine] - 1 Week Discharge Disposition: HOME SELF-CARE
--- NOTE | 2020-02-08 09:31 | P.MSEPDOC ---
Presenting Problems - Arrival Data Date of Arrival on Unit: 02/07/20 Time of Arrival on Unit: 22:32 Mode of Transport: EMS - Complaint OB-Reason for Admission/Chief Complaint: Possible Onset of Labor, Pain Medical History - Information : 4 Para: 2 Term: 2 : 0 Abortions: Spontaneous or Elective: 1 Number of Living Children: 2 - Gestational Age Gestational Age by ZULEIMA (wks/days): 35 Weeks and 4 Days - History Complications: Prior Comment: resides in [facility] Assisted custody Review of Systems - Review of Systems Constitutional: No problems Breast: No problems ENT: No problems Cardiovascular: No problems Respiratory: No problems Gastrointestinal: No problems Genitourinary: No problems Musculoskeletal: No problems Neurological: No problems Skin: No problems Vital Signs - Temperature Temperature: 96.9 F Temperature Source: Temporal Artery Scan - Pulse Right Pulse Rate: 94 - Respirations Respiratory Rate: 16 - Blood Pressure Right Arm Blood Pressure: 110/66 Blood Pressure Mean: 80 Blood Pressure Source: Automatic Cuff Medical Screen Scoring (Pre) - Cervical Exam Dilation: 0 cm = 0 Membranes: Intact - Uterine Contractions Frequency: Scheduled / = 6 Duration: > 40 seconds = 2 Intensity: N/A - Maternal Vital Signs Maternal Temperature: N/A Maternal Blood Pressure: N/A Signs of Preeclampsia: N/A Maternal Respirations: N/A - Maternal Trauma Maternal Trauma: N/A - Assessment - Baby A Baseline FHR: 135 Heart Rate - NICHD Category: Category I (Normal) = 0 NST: Reactive - Total Score - Baby A Total Score - Baby A: 8 - Total Score - Baby B Total Score - Baby B: 8 - Total Score - Baby C Total Score - Baby C: 8 - Level of Risk - Baby A Level of Risk - Baby A: Medium (6-9) - Level of Risk - Baby B Level of Risk - Baby B: Medium (6-9) - Level of Risk - Baby C Level of Risk - Baby C: Medium (6-9) Physician Notification (Pre) - Physician Notified Physician Notified Date: 02/07/20 Physician Notified Time: 22:50 Disposition - Disposition OB Disposition: Triage Discharge Date: 02/08/20 Discharge Time: 09:15 I agree with the RN Medical Screening Exam: Yes Risk & Benefit of care provided described in d/c instruction: Yes Diagnosis: FALSE LABOR BEFORE 37 COMPLETED WEEKS OF GEST, THIRD TRI
== END 2020-02-08 09:15 | disposition home or self-care (01) ==
LOC: FBPOP 22:31 → 4FBP 02-08 01:22
PROVIDERS: ADMIT Obstetrics & Gynecology Obstetrics; ATTEND Obstetrics & Gynecology Obstetrics
DX: O60.03 Preterm labor without delivery, third trimester (principal); Z3A.35 35 weeks gestation of pregnancy; O99.343 Other mental disorders complicating pregnancy, third trimester; F32.9 Major depressive disorder, single episode, unspecified; O99.513 Diseases of the respiratory system complicating pregnancy, third trimester; J45.909 Unspecified asthma, uncomplicated; G56.00 Carpal tunnel syndrome, unspecified upper limb; O34.219 Maternal care for unspecified type scar from previous cesarean delivery; Z87.891 Personal history of nicotine dependence; Z83.49 Family history of other endocrine, nutritional and metabolic diseases
CPT/HCPCS: 59025; 96360; 96361; 96372 ×2; 81001; G0463; G0378; J3105 ×2; 99213

== ENCOUNTER 2020-03-09 06:00 | Inpatient (IN) | payer OTHER ==
[2020-03-09] MEDS ORDERED: CITRIC ACID-SODIUM CITRATE 15 ML CUP PO ONE (12:40)
[2020-03-09 12:52] LABS: Basophils # (A) 0.1 k/uL (0-0.2); Basophils % (A) 0 %; Eosinophils % (A) 0 %; HCT 39.9 % (34.0-46.0); HGB 13.3 gm/dL (11.4-16.0); Lymphocytes # (A) 2.5 k/uL (1.0-4.8); Lymphocytes % (A) 17 %; MCH 31.1 pg (25.0-35.0); MCHC 33.4 g/dL (31.0-37.0); MCV 93.1 fL (80.0-100.0); Mean Platelet Volume 7.7; Monocytes # (A) 0.9 k/uL (0-1.0); Monocytes % (A) 6 %; Neutrophils # (A) 11.4 k/uL (1.3-7.7); Neutrophils % (A) 76 %; Platelet Count 278 k/uL (150-450); RBC 4.29 m/uL (3.80-5.40); RDW 12.9 % (11.5-15.5)
[2020-03-09] MEDS: LACTATED RINGERS 1,000 ML IV SCH (13:12)
[2020-03-09] MEDS ORDERED: AMPICILLIN 2,000 MG in SODIUM CHLORIDE 0.9% 100 ML IVPB STA (13:39)
[2020-03-09] MEDS ORDERED: OXYTOCIN 10 UNIT/ML 1 ML VIAL IM PRN (14:36)
[2020-03-09] MEDS ORDERED: CARBOPROST TROMETHAMINE 250 MCG/ML 1 ML AMP IM PRN (14:36)
[2020-03-09] MEDS ORDERED: TERBUTALINE 1 MG/ML VIAL SQ PRN (14:36)
[2020-03-09] MEDS ORDERED: LIDOCAINE 0.5% (PF) 5 MG/ML (50 ML SDV) SQ PRN (14:36)
[2020-03-09] MEDS ORDERED: METHYLERGONOVINE 0.2 MG/ML 1 ML AMP IM PRN (14:36)
[2020-03-09] MEDS: OXYTOCIN 30 UNITS/500 ML NS 30 UNIT in SALINE 1 500ML.BAG IV SCH (16:28)
--- NOTE | 2020-03-09 17:04 | P.HPOB ---
History of Present Illness H&P Date: 03/09/20 Chief Complaint: IUP at 39 and 6 [place] weeks, labor This is a 29-year-old 6 para 2 at 39-6/7 weeks with an estimated due date of 03/10/2020. Patient presents with complaints of regular painful contractions. Patient was noted be 6-7 cm on admission. Patient has a history of a with her second delivery secondary to nonreassuring heart tones. Patient initially wanted to proceed with repeat section but given her dilation discussion was had about trial of labor after . Patient states her first labor was very efficient and she delivered after 22 minutes of pushing. Patient wishes to proceed with trial of labor after . Patient has had inconsistent care as she has been incarcerated throughout this . She was currently released from care home. On blood work she has a blood type of A+, rubella status nonimmune, hepatitis B surface antigen negative, HIV negative, GBS is unknown secondary to inconsistent care. Patient states she does note good movement, she denies loss of fluid at this time. Review of Systems Constitutional: Denies chills, Denies fatigue, Denies fever Ears, nose, mouth and throat: Denies headache Cardiovascular: Reports leg edema Respiratory: Denies dyspnea Gastrointestinal: Denies constipation, Denies diarrhea, Denies nausea, Denies vomiting Genitourinary: Reports Past Medical History Past Medical History: Cancer Additional Past Medical History / Comment(s): SKIN. 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 Past Anesthesia/Blood Transfusion Reactions: No Reported Reaction Smoking Status: Current every day smoker Past Alcohol Use History: None Reported Past Drug Use History: None Reported Additional Drug Use History / Comment(s): previous drug use noted, see record - Past Family History Mother Family Medical History: Thyroid Disorder Medications and Allergies Home Medications Medication Instructions Recorded Confirmed Type Pnv No.95/Ferrous Fum/Folic AC 1 tab PO DAILY 01/14/18 03/09/20 History [ Multivitamin Tablet] valACYclovir HCL [Valtrex] 1 tab PO ONCE 03/08/20 03/09/20 History Allergies Allergy/AdvReac Type Severity Reaction Status Date / Time No Known Allergies Allergy Verified 03/08/20 04:18 Exam Osteopathic Statement: *. No significant issues noted on an osteopathic structural exam other than those noted in the History and Physical/Consult. Vital Signs Temp Pulse Resp BP Pulse Ox 03/09/20 12:00 97.2 F L 88 18 115/65 96 Intake and Output 03/09/20 03/09/20 03/09/20 06:59 14:59 22:59 Other: Weight 89.811 kg Targeted physical exam is performed and state in general this a well-nourished well-developed female in no obvious distress, breathing is noted to be nonlabored, heart has regular rhythm, heart tones returned be category 1 and no decelerations and moderate variability are noted. Patient is sridhar every 5 minutes, on cervical exam she is 8/100/-1 station with a bulging bag of water. Results Result Diagrams: 03/09/20 12:34 Abnormal Lab Results - Last 24 Hours (Table) 03/09/20 Range/Units 12:34 WBC 15.0 H (3.8-10.6) k/uL Neutrophils # 11.4 H (1.3-7.7) k/uL Assessment and Plan (1) Thick meconium stained amniotic fluid Current Visit: Yes Status: Acute Code(s): P96.83 - MECONIUM STAINING SNOMED Code(s): 193967269 (2) Active labor Current Visit: Yes Status: Acute Code(s): IES7851 - SNOMED Code(s): 137199457 (3) Term Current Visit: No Status: Acute Code(s): Z34.80 - ENCOUNTER FOR SUPRVSN OF NORMAL , UNSP TRIMESTER SNOMED Code(s): 26386109 Plan: This 29-year-old 6 para 2031 at 39-6/7 weeks presented to labor and delivery with complaints of contractions. Patient does have a history of a primary secondary to nonreassuring heart tones and wishes trial of labor after . Patient is admitted epidural was placed prior to this note. Patient is noted to be 8 cm, amniotomy was performed and meconium-stained fluid was noted. Anticipate spontaneous vaginal delivery.
[2020-03-09 17:12] LABS: Cocaine Screen,Urine Not Detected (NotDetected); Phencyclidine Screen,Urine Not Detected (NotDetected); Urn Cannabinoid Scrn Not Detected (NotDetected)
[2020-03-09 17:13] LABS: Amphetamine Screen,Urine Not Detected (NotDetected); Barbiturate Screen,Urine Not Detected (NotDetected); Benzodiazepines Screen,Urine Not Detected (NotDetected); Methadone Screen, Urine Not Detected (NotDetected); Opiate Screen,Urine Not Detected (NotDetected); Oxycodone Screen, Urine Not Detected (NotDetected); Tricyclic Antidepressant,Urine Not Detected (NotDetected)
[2020-03-09] MEDS: AMPICILLIN 1,000 MG in SODIUM CHLORIDE 0.9% 50 ML IVPB SCH (17:29)
[2020-03-09] MEDS ORDERED: diphenhydrAMINE 50 MG/ML 1 ML VIAL IVP STA (19:04)
[2020-03-09] MEDS ORDERED: METOCLOPRAMIDE 5 MG/ML 2 ML VIAL IVP PRN (20:23)
[2020-03-09] MEDS ORDERED: ONDANSETRON 4 MG/2 ML VIAL IVP PRN (20:23)
[2020-03-09] MEDS ORDERED: SIMETHICONE 80 MG CHEWABLE PO PRN (20:23)
[2020-03-09] MEDS ORDERED: diphenhydrAMINE 25 MG CAP PO PRN (20:23)
[2020-03-09] MEDS ORDERED: diphenhydrAMINE 50 MG CAP PO PRN (20:23)
[2020-03-09] MEDS ORDERED: diphenhydrAMINE 50 MG/ML 1 ML VIAL IVP PRN ×2 (20:23)
[2020-03-09] MEDS ORDERED: ZOLPIDEM 5 MG TAB PO PRN (20:23)
[2020-03-09] MEDS ORDERED: MEASLES-MUMPS-RUBELLA VACC/PF 12,500 UNIT/0.5 ML VIAL SQ ONE (20:23)
[2020-03-09] MEDS ORDERED: ACETAMINOPHEN TAB 325 MG TAB PO PRN (20:23)
[2020-03-09] MEDS ORDERED: NALOXONE 0.4 MG/ML 1 ML VIAL IV PRN (20:23)
[2020-03-09] MEDS ORDERED: OXYTOCIN 20 UNITS/1000 ML NS 1,000 ML IV SCH (20:30)
[2020-03-09] MEDS ORDERED: LACTATED RINGERS 1,000 ML IV SCH (20:30)
[2020-03-09] MEDS ORDERED: ACETAMINOPHEN IV (For NPO) 1,000 MG in EMPTY BAG 1 BAG IVPB ONE (20:30)
--- NOTE | 2020-03-09 20:32 | P.OP ---
Date of Procedure: 03/09/20 Preoperative Diagnosis: IUP at 39-6/7 weeks, failed , maternal intolerance to labor Postoperative Diagnosis: Occiput posterior presentation Procedure(s) Performed: Repeat section Anesthesia: ARMIDA Surgeon: Noelle Harris Histology Tech #1: Yair Moon Estimated Blood Loss (ml): 500 IV fluids (ml): 1,300 Urine output (ml): 150 Pathology: other (Placenta) Condition: stable Disposition: PACU Indications for Procedure: This 29-year-old 6 para 2031 at 39-6/7 weeks presented to labor and delivery with complaints of contractions. Patient does have a history of a vaginal delivery uncomplicated, primary for breech and nonreassuring heart tones, and wished to 12:00 for this . Patient was admitted to labor and delivery epidural was obtained patient was comfortable until she got to 9 cm patient began thrashing around. Once patient was noted to be complete she began pushing but was refusing to push with contractions. Patient was thrashing and being very violent with the staff. At this time discussed repeat section secondary to maternal intolerance of labor. Operative Findings: Normal uterus tubes and ovaries were appreciated, viable male delivered at 1949, weight of 77 and Apgars of 8 and 9 at one and 5 minutes respectively. Thick meconium stained fluid was noted upon rupture of membranes earlier in the day. Description of Procedure: Patient was taken back to the operating suite where general anesthesia was obtained without difficulty by the anesthesia Department. Prior to anesthesia s he did her abdomen was prepped and draped in normal sterile fashion in the dorsal supine position. Once general anesthesia was obtained a Pfannenstiel skin incision was made the scalpel and carried through the underlying layer of fascia. The fascia was incised in the midline and extended laterally. The superior aspect of the fascial incision was then grasped danay clamps, elevated and underlying rectus muscles dissected off sharply. Attention was then turned the inferior aspect of the fascial incision which was grasped danay clamps, elevated and underlying rectus muscles dissected off sharply. Rectus muscles were in the midline the peritoneum was identified and entered. This incision was extended superiorly and inferiorly with good visualization the bladder. The bladder blade was then inserted. Anterior adhesions of the bladder to the uterus were noted these were taken down sharply without difficulty. The bladder blade was reinserted. The scalpel was then used to cr eate a hysterotomy incision once again meconium-stained fluid was noted. Infant was noted to be in the occiput posterior presentation was delivered H medically umbilical cord was doubly clamped and cut and the infant was handed off to awaiting RN. Placenta was then delivered manually noted to be intact with a three-vessel cord. The uterus was then delivered from the abdomen and cleared of all clots and debris. The uterine incision was closed with 0 Vicryl in a running locked fashion from one lateral edge the other a second imbricating suture was then used. Bleeding was noted on the left-hand side of the uterine incision therefore a kojaid-gc-[id number] suture was used to obtain hemostasis. The pelvis then copiously irrigated and returned the abdomen. The gutters were cleared of all clots and debris. On inspection of the uterine incision bleeding was noted on the lateral left incision therefore a [id number]-[id number] suture was used to obtain hemostasis. Surgicel was placed along this uterine incision once hemostasis was appreciated. The gutters had been cleared of all clots and debris prior to the Surgicel placement. The peritoneum was then loosely reapproximated. The fascia was then closed with 0 Vicryl in a running fashion, from one lateral edge the midline and the other lateral edge the midline. Subcutaneous tissue was irrigated and found to be hemostatic. It was then closed with 3-0 Vicryl in a running fashion. The skin was then closed with 4-0 Vicryl in a subarticular fashion Steri-Strips and sterile dressings were applied. All counts were noted to be correct 2. Patient and infant tolerated delivery well.
[2020-03-09] MEDS ORDERED: IBUPROFEN IV 800 MG in SODIUM CHLORIDE 0.9% 250 ML IV ONE (21:00)
[2020-03-10 08:09] LABS: Basophils # (A) 0.1 k/uL (0-0.2); Basophils % (A) 0 %; Eosinophils % (A) 0 %; HCT 35.4 % (34.0-46.0); HGB 12.1 gm/dL (11.4-16.0); Lymphocytes # (A) 2.2 k/uL (1.0-4.8); Lymphocytes % (A) 14 %; MCHC 34.2 g/dL (31.0-37.0); MCV 93.3 fL (80.0-100.0); Mean Platelet Volume 7.4; Monocytes # (A) 0.8 k/uL (0-1.0); Monocytes % (A) 5 %; Neutrophils % (A) 80 %; Platelet Count 248 k/uL (150-450); RBC 3.79 m/uL (3.80-5.40); RDW 12.9 % (11.5-15.5); WBC 16.3 k/uL (3.8-10.6)
--- NOTE | 2020-03-10 08:11 | P.PN ---
Progress Note - Text Progress Note Date: 03/10/20 (622) Anesthesia Postop day 1 Subjective: Status Post section with Duramorph. Patient seen and examined. Doing well without complaint. VAS 4 out of 10tolerable. No nausea vomiting or pruritus. Afebrile. Gross lower extremity strength intact. . Without apparent anesthetic complications. Objective: Vital signs reviewed Heart: Regular Rate Lungs: Good chest excursion Abdomen: Appears nondistended Assessment: Status post with Duramorph postop day 1 Plan: Continue current care with your medical management.
[2020-03-10] MEDS: PRENATAL VIT-IRON-FOLIC ACID 1 EACH CAP PO SCH (08:36)
[2020-03-10] MEDS: SENNOSIDES-DOCUSATE SODIUM 1 EACH TAB PO SCH ×2 (08:36→20:04)
--- NOTE | 2020-03-10 11:02 | P.PNOBGPC ---
Subjective - Subjective Interval history: The patient reports some difficulty ambulating as she cannot straighten up en tirely. Patient reports: Reports appetite normal, Reports voiding normally, Reports pain well controlled : doing well Objective - Vital Signs Latest vital signs: Vital Signs Temp Pulse Resp BP Pulse Ox 03/10/20 08:00 99.5 F 95 17 115/71 98 03/10/20 04:00 98.7 F 80 16 120/67 03/09/20 22:36 98.5 F 86 16 112/56 03/09/20 22:06 98.5 F 98 16 129/60 03/09/20 21:36 98.5 F 100 16 114/56 03/09/20 21:21 99.5 F 109 H 16 118/59 03/09/20 21:06 98.7 F 117 H 14 108/66 03/09/20 20:51 98.7 F 116 H 16 133/70 03/09/20 20:36 99.8 F H 114 H 14 121/65 94 L 03/09/20 12:00 97.2 F L 88 18 115/65 96 Intake and Output 03/09/20 03/10/20 03/10/20 22:59 06:59 14:59 Output Total 600 Balance -600 Output: Urine 600 Other: # Voids 1 - Exam Extremities: Present: normal Abdomen: Present: normal appearance, soft. Absent: distention, tenderness Incision: Present: normal, dry, intact Uterus: Present: normal, firm (The uterine fundus is [place] and appropriately tender just below the umbilicus.) - Labs Labs: Abnormal Lab Results - Last 24 Hours (Table) 03/09/20 03/10/20 Range/Units 12:34 07:37 WBC 15.0 H 16.3 H (3.8-10.6) k/uL RBC 3.79 L (3.80-5.40) m/uL Neutrophils # 11.4 H 13.0 H (1.3-7.7) k/uL Assessment and Plan (1) S/P section Current Visit: No Status: Acute Code(s): Z98.891 - HISTORY OF UTERINE SCAR FROM PREVIOUS SURGERY SNOMED Code(s): 931012101 Plan: Continue routine postoperative care. I strongly encouraged the patient ambulate in the hallways at least 4 times daily. Her diet will be advanced to regular. Possible discharge home tomorrow pending no complications.
[2020-03-10 13:19] VITALS: RESP 16
[2020-03-10] MEDS: HYDROcodone/APAP 5-325MG 1 EACH TAB PO PRN ×2 (13:50→21:22)
[2020-03-10] MEDS: IBUPROFEN 600 MG TAB PO PRN ×2 (17:59→23:48)
[2020-03-10] MEDS: OXYTOCIN 30 UNITS/500 ML NS 30 UNIT in SALINE 1 500ML.BAG IV SCH (22:10)
[2020-03-10] MEDS: AMPICILLIN 1,000 MG in SODIUM CHLORIDE 0.9% 50 ML IVPB SCH ×2 (22:10→22:11)
[2020-03-10] MEDS: LACTATED RINGERS 1,000 ML IV SCH (22:11)
[2020-03-11] MEDS: PRENATAL VIT-IRON-FOLIC ACID 1 EACH CAP PO SCH (08:23)
[2020-03-11] MEDS: IBUPROFEN 600 MG TAB PO PRN (08:23)
[2020-03-11] MEDS: SENNOSIDES-DOCUSATE SODIUM 1 EACH TAB PO SCH (08:24)
[2020-03-11 08:48] VITALS: BP 131/70; PULSE 89; TEMP 97.6
--- NOTE | 2020-03-11 08:54 | P.DS ---
Providers Date of admission: 03/09/20 12:10 Expected date of discharge: 03/11/20 Attending physician: Noelle Harris Primary care physician: Stated None - Discharge Diagnosis(es) (1) S/P section Current Visit: No Status: Acute Hospital Course: The patient is a 29-year-old 6 para 2031 admitted at 39-6/7 weeks of her cheese admitted in early active labor with all signs reassuring. She is a history of a normal vaginal delivery followed by section for nonreassuring heart tones. She initially asked for repeat sect ion but then opted to have a trial of labor. She progressed to complete but then had significant discomfort and the was not tolerating labor able to push effectively. As result she was taken the operating room for repeat low transverse section where she was delivered of a viable 7 lbs. 7 oz. baby boy with Apgars of 8 at 1 minute and 9 at 5 minutes. Her operative course has been medically unremarkable with vital signs remaining stable and her temperature was afebrile throughout. She did have an episode where she left the hospital unattended and without permission and then returned. As a result of erratic behavior, the was returned to the nursery pending further decisions from pediatrics as well as social science instructor. She was deemed stable for discharge on postop day #2 and was discharged home to follow-up in the office in 2 weeks for an incision check and 6 weeks routinely. Discharge instructions included calling for any significantly increased bleeding or foul- smelling lochia, significantly increased fever abdominal pain, perineal complaints, breast complaints, incisional complaints, or anything else that concerned her. She is additionally instructed to have nothing in the vagina for at least 6 weeks time to include intercourse. She was also instructed to do no heavy lifting over the same period of time. She was last instructed to do no driving until off of all pain medications or 2 weeks' time, whichever came first she understood her instructions and agrees to follow up as noted above. Discharge medications included [id number] analgesic pain medications as well as a prescription for [place] 5/325 mg, 1-2 by mouth every 6 hours when necessary pain, #20 dispensed with no refills. Maternal blood type is A+ and rubella status is nonimmune. She therefore was to receive the MMR vaccination prior to discharge. Discharge hemoglobin and hematocrit were 12.1 and 35.4 respectively. Procedures: #1. Epidural analgesia #2. Repeat low transverse section #3. client services specialist consult Patient Condition at Discharge: Stable Plan - Discharge Summary New Discharge Prescriptions: No Action Pnv No.95/Ferrous Fum/Folic AC [ Multivitamin Tablet] 1 tab PO DAILY valACYclovir HCL [Valtrex] 1 tab PO ONCE Discharge Medication List Pnv No.95/Ferrous Fum/Folic AC [ Multivitamin Tablet] 1 tab PO DAILY 01/14/18 [History] valACYclovir HCL [Valtrex] 1 tab PO ONCE 03/08/20 [History] Follow up Appointment(s)/Referral(s): Noelle Harris DO [Doctor of Osteopathic Medicine] - 2 Weeks Discharge Disposition: HOME SELF-CARE
== END 2020-03-11 12:10 | disposition home or self-care (01) | DRG 788 ==
LOC: 4FBP 12:10
PROVIDERS: ADMIT Obstetrics & Gynecology Obstetrics; ATTEND Obstetrics & Gynecology Obstetrics
PROC: 10D00Z1 Extraction of Products of Conception, Low, Open Approach (ICD-10-PCS; principal; 2020-03-09 19:45)
DX: O34.211 Maternal care for low transverse scar from previous cesarean delivery (principal); O99.334 Smoking (tobacco) complicating childbirth; F17.200 Nicotine dependence, unspecified, uncomplicated; J45.909 Unspecified asthma, uncomplicated; O99.52 Diseases of the respiratory system complicating childbirth; O77.0 Labor and delivery complicated by meconium in amniotic fluid; Z37.0 Single live birth; Z3A.39 39 weeks gestation of pregnancy; Z85.828 Personal history of other malignant neoplasm of skin; Z83.49 Family history of other endocrine, nutritional and metabolic diseases
CPT/HCPCS: 80306; 85025; 86850; 86900; 86901; 88307

== ENCOUNTER 2021-05-03 05:57 | Emergency (ER) | payer OTHER ==
[2021-05-03 06:36] VITALS: BP 119/78; PULSE 108; RESP 20; TEMP 98.2
--- NOTE | 2021-05-03 06:52 | ED ---
ENT HPI - General Chief complaint: Dental/Oral Stated complaint: Dental Abscess Time Seen by Provider: 05/03/21 06:39 Source: patient, RN notes reviewed Mode of arrival: ambulatory - History of Present Illness Initial comments: This is a pleasant 30-year-old female who presents to the emergency department complaining of left upper dental pain which has been going on since yesterday. Patient denies any sore throat, no difficulty swallowing. She is getting aching pain to the area which is exacerbated with chewing and when area is touched. No fever or chills. No headache. No change in vision or hearing. No neck pain. No shortness of breath or chest pain. No abdominal pain. No nausea or vomiting. No change in bowel when she urination. No skin rashes or lesions. Patient is a cigarette smoker. No history of immunosuppression or diabetes. MD complaint: tooth pain - Related Data Home Medications Medication Instructions Recorded Confirmed Pnv No.95/Ferrous Fum/Folic AC 1 tab PO DAILY 01/14/18 03/09/20 [ Multivitamin Tablet] valACYclovir HCL [Valtrex] 1 tab PO ONCE 03/08/20 03/09/20 Previous Rx's Medication Instructions Recorded Acetaminophen [Tylenol] 500 mg PO Q4-6H PRN #24 tab 05/03/21 Naproxen [Naprosyn] 375 mg PO Q12HR PRN #20 tablet 05/03/21 Penicillin V Potassium [Pen Vee K] 500 mg PO QID #40 tablet 05/03/21 Allergies Allergy/AdvReac Type Severity Reaction Status Date / Time No Known Allergies Allergy Verified 05/03/21 06:32 Review of Systems ROS Statement: Those systems with pertinent positive or pertinent negative responses have been documented in the HPI. ROS Other: All systems not noted in ROS Statement are negative. Past Medical History Past Medical History: Cancer Additional Past Medical History / Comment(s): SKIN. 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 Does not appear to be ill or toxic. Vital signs reviewed. Limitations: no limitations General appearance: alert, in no apparent distress Head exam: Present: atraumatic, normocephalic, normal inspection Eye exam: Present: normal appearance, PERRL, EOMI. Absent: scleral icterus, conjunctival injection, periorbital swelling ENT exam: Present: normal exam, normal oropharynx, mucous membranes moist, TM's normal bilaterally, normal external ear exam Expanded Ear exam: Present: normal external inspection Mouth exam: Present: normal external inspection. Absent: drooling, trismus, muffled voice, tongue normal, tongue elevation, laceration Teeth exam: Present: dental caries, dental tenderness # (13, patient has an eroded dental carry extending into the dental pulp, tooth #13 with adjacent erythema. No evidence of intraoral cellulitis.) Throat exam: normal inspection. negative: tonsillar erythema, tonsillomegaly, tonsillar exudate, R peritonsillar mass, L peritonsillar mass Neck exam: Present: normal inspection, full ROM. Absent: tenderness, meningismus, lymphadenopathy Respiratory exam: Present: normal lung sounds bilaterally. Absent: respiratory distress, wheezes, rales, rhonchi, stridor Cardiovascular Exam: Present: regular rate, normal rhythm, normal heart sounds. Absent: systolic murmur, diastolic murmur, rubs, gallop, clicks GI/Abdominal exam: Present: soft, normal bowel sounds. Absent: distended, tenderness, guarding, rebound, rigid Extremities exam: Present: normal inspection, full ROM, normal capillary refill. Absent: tenderness, pedal edema, joint swelling, calf tenderness Back exam: Present: normal inspection Neurological exam: Present: alert, oriented X3, CN II-XII intact Psychiatric exam: Present: normal affect, normal mood Skin exam: Present: warm, dry, intact, normal color. Absent: rash Course Vital Signs 05/03/21 06:33 Temperature 98.2 F Pulse Rate 108 H Respiratory 20 Rate Blood Pressure 119/78 O2 Sat by Pulse 95 Oximetry Medical Decision Making - Medical Decision Making Patient presents with signs and symptomology consistent with a dental infection due to #13. Patient has a severely eroded dental carry into the palm. Airways patent. Patient does not appear to be systemically ill. We'll treat with Pen- Vee K 500 mg 4 times a day. Patient was counseled on smoking cessation. Told to follow up with a dentist. She was told to call and set up an appointment today without fail. Patient concurs with this treatment plan. All questions answered. Follow-up with your regular physician as directed. Return to the ER immediately if any symptoms worsen, new symptoms arise, or any other problems develop. Supervising physicians Dr. Green Disposition Clinical Impression: Dental abscess, Cigarette smoker Disposition: HOME SELF-CARE Condition: Good Instructions (If sedation given, give patient instructions): Dental Abscess (ED), How to Stop Smoking (ED) Additional Instructions: Follow-up with your regular physician as directed. Return to the ER immediately if any symptoms worsen, new symptoms arise, or any other problems develop. Make an appointment with the dentist. Call today to set the appointment up this week. Take antibiotics as directed. Work on smoking cessation. Prescriptions: Naproxen [Naprosyn] 375 mg PO Q12HR PRN #20 tablet PRN Reason: Pain Penicillin V Potassium [Pen Vee K] 500 mg PO QID #40 tablet Acetaminophen [Tylenol] 500 mg PO Q4-6H PRN #24 tab PRN Reason: Pain Is patient prescribed a controlled substance at d/c from ED?: No Referrals: None,Stated [Primary Care Provider] - 1-2 days
== END 2021-05-03 06:52 | disposition home or self-care (01) ==
LOC: EC 05:57
DX: K04.7 Periapical abscess without sinus (principal); F17.210 Nicotine dependence, cigarettes, uncomplicated; J45.909 Unspecified asthma, uncomplicated; F31.9 Bipolar disorder, unspecified
CPT/HCPCS: 99282

== ENCOUNTER 2021-08-28 16:54 | Emergency (ER) | payer OTHER ==
[2021-08-28 20:20] LABS: Amorphous Sediment,Urine Rare /hpf; Appearance,Urine Cloudy (Clear); Bilirubin,Urine Negative (Negative); Blood,Urine Negative (Negative); Color,Urine Yellow; Glucose,Urine (UA) Negative (Negative); Ketones,Urine Negative (Negative); Leukocyte Esterase,Urine Large (Negative); Mucus,Urine Few /hpf; Nitrite,Urine Negative (Negative); PH, Urine 5.5 (5.0-8.0); Protein,Urine Trace (Negative); RBC,Urine 9 /hpf (0-5); Specific Gravity,Urine 1.022 (1.001-1.035); Squamous Epithelial Cell,Urine 37 /hpf (0-4); Urobilinogen,Urine <2.0 mg/dL (<2.0); WBC,Urine 33 /hpf (0-5)
[2021-08-28] MEDS ORDERED: SODIUM CHLORIDE 0.9% 1,000 ML IV ONE (20:24)
--- NOTE | 2021-08-28 20:27 | ED ---
Female Urogenital HPI - General Chief complaint: Vaginal Bleeding Stated complaint: Vag Bleeding,,Unk Weeks Time Seen by Provider: 08/28/21 18:29 Source: patient, RN notes reviewed Mode of arrival: ambulatory Limitations: no limitations - History of Present Illness Initial comments: This is a pleasant 30-year-old female who is A0. Patient presents prescribed today complaining of pelvic cramping, follow vaginal discharge, and i ntermittent vaginal bleeding. Patient unsure of her last menstrual period states that she did have positive test at home. Patient denying any fever or chills. Mild dysuria. States that she could have an STD as her partner has other partners. No headache, no fever or chills, no changes in vision or hearing, no sore throat or difficulty with speech, no neck pain, no chest pain or shortness of breath, no abdominal pain, no nausea or vomiting, no changes in urination or bowel movements, no numbness or tingling, no extremity pain, no skin rashes or lesions. MD Complaint: vaginal discharge Last Menstrual Period: 06/07/21 - Related Data Home Medications Medication Instructions Recorded Confirmed No Known Home Medications 08/28/21 08/28/21 Allergies Allergy/AdvReac Type Severity Reaction Status Date / Time No Known Allergies Allergy Verified 08/28/21 21:56 Review of Systems ROS Statement: Those systems with pertinent positive or pertinent negative responses have been documented in the HPI. ROS Other: All systems not noted in ROS Statement are negative. Past Medical History Past Medical History: Cancer Additional Past Medical History / Comment(s): SKIN. 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 Does not appear to be dehydrated. Adequate peripheral perfusion Limitations: no limitations General appearance: alert, in no apparent distress Head exam: Present: atraumatic, normocephalic, normal inspection Eye exam: Present: normal appearance, PERRL, EOMI. Absent: scleral icterus, conjunctival injection, periorbital swelling ENT exam: Present: normal exam, normal oropharynx, mucous membranes moist. Absent: mucous membranes dry Neck exam: Present: normal inspection, full ROM. Absent: tenderness, meningismus, lymphadenopathy Respiratory exam: Present: normal lung sounds bilaterally. Absent: respiratory distress, wheezes, rales, rhonchi, stridor Cardiovascular Exam: Present: regular rate, normal rhythm, normal heart sounds. Absent: systolic murmur, diastolic murmur, rubs, gallop, clicks GI/Abdominal exam: Present: soft, normal bowel sounds. Absent: distended, tenderness, guarding, rebound, rigid External exam: Present: normal external exam. Absent: erythema, swelling, lesions, lacerations, ecchymosis Speculum exam: Present: vaginal discharge, cervical discharge, other (Chaperoned by female RN. Patient has homogenous, copious white cervical discharge with minimal cervical inflammation. No significant cervical motion tenderness). Absent: normal speculum exam, erythema, vaginal bleeding, foreign body, tissue, laceration Extremities exam: Present: normal inspection, full ROM, normal capillary refill. Absent: tenderness, pedal edema, joint swelling, calf tenderness Back exam: Present: normal inspection Neurological exam: Present: alert, oriented X3, CN II-XII intact Psychiatric exam: Present: normal affect, normal mood Skin exam: Present: warm, dry, intact, normal color. Absent: rash Course Vital Signs 08/28/21 17:40 Temperature 98.2 F Pulse Rate 88 Respiratory 18 Rate Blood Pressure 98/59 O2 Sat by Pulse 99 Oximetry Medical Decision Making - Medical Decision Making Ultrasound shows an intrauterine at 12 weeks 1 day gestation with a heart rate of 163. No other abnormalities noted. Patient high risk for STDs. I'm going to treat the patient with Rocephin 500 mg intramuscular, metronidazole 2 g by mouth, and Zithromax 1 g by mouth. Cultures were sent. Pelvic examination chaperoned by a female RN. Discussed the pos sibility of STDs in detail with the patient. Advised partner treatment. Patient was told to return to the ER for any signs or symptoms worsen. Told to return immediately if any other problems arise. All questions answered. Treatment plan discussed. Patient in agreement Every effort has been made to ensure accuracy of this dictation. However, due to the limitations of electronic medical records and dictation devices, errors in charting still occur. Patient came up positive for Trichomonas. I spoke to the patient's boyfriend advised he was treated as well. He is in the room with the patient. Patient given follow-up with on-call [employer]. Discussed all findings, discussed treatment plan. All questions answered Patient is Rh+ Discussed pelvic rest - Lab Data Result diagrams: 08/28/21 20:45 08/28/21 22:07 Lab Results 08/28/21 08/28/21 08/28/21 Range/Units 19:50 19:50 20:45 WBC 10.5 (3.8-10.6) k/uL RBC 4.16 (3.80-5.40) m/uL Hgb 12.5 (11.4-16.0) gm/dL Hct 38.4 (34.0-46.0) % MCV 92.2 (80.0-100.0) fL MCH 30.0 (25.0-35.0) pg MCHC 32.5 (31.0-37.0) g/dL RDW 13.3 (11.5-15.5) % Plt Count 335 (150-450) k/uL MPV 7.2 Neutrophils % 60 % Lymphocytes % 28 % Monocytes % 8 % Eosinophils % 0 % Basophils % 1 % Neutrophils # 6.4 (1.3-7.7) k/uL Lymphocytes # 3.0 (1.0-4.8) k/uL Monocytes # 0.9 (0-1.0) k/uL Eosinophils # 0.0 (0-0.7) k/uL Basophils # 0.1 (0-0.2) k/uL Sodium (137-145) mmol/L Potassium (3.5-5.1) mmol/L Chloride (98-107) mmol/L Carbon Dioxide (22-30) mmol/L Anion Gap mmol/L BUN (7-17) mg/dL Creatinine (0.52-1.04) mg/dL Est GFR (CKD-EPI)AfAm (>60 ml/min/1.73 sqM) Est GFR (CKD-EPI)NonAf (>60 ml/min/1.73 sqM) Glucose (74-99) mg/dL Calcium (8.4-10.2) mg/dL Total Bilirubin (0.2-1.3) mg/dL AST (14-36) U/L ALT (4-34) U/L Alkaline Phosphatase (38-126) U/L Total Protein (6.3-8.2) g/dL Albumin (3.5-5.0) g/dL HCG, Quant mIU/mL Urine Color Yellow Urine Appearance Cloudy H (Clear) Urine pH 5.5 (5.0-8.0) Ur Specific Paron 1.022 (1.001-1.035) Urine Protein Trace H (Negative) Urine Glucose (UA) Negative (Negative) Urine Ketones Negative (Negative) Urine Blood Negative (Negative) Urine Nitrite Negative (Negative) Urine Bilirubin Negative (Negative) Urine Urobilinogen <2.0 (<2.0) mg/dL Ur Leukocyte Esterase Large H (Negative) Urine RBC 9 H (0-5) /hpf Urine WBC 33 H (0-5) /hpf Ur Squamous Epith Cells 37 H (0-4) /hpf Amorphous Sediment Rare H (None) /hpf Urine Mucus Few H (None) /hpf Urine HCG, Qual Detected (Not Detectd) Trichomonas Ag (Rapid) (Negative) Blood Type Blood Type Recheck Bld Type Recheck Status Antibody Screen Spec Expiration Date 08/28/21 08/28/21 08/28/21 Range/Units 22:07 22:07 23:00 WBC (3.8-10.6) k/uL RBC (3.80-5.40) m/uL Hgb (11.4-16.0) gm/dL Hct (34.0-46.0) % MCV (80.0-100.0) fL MCH (25.0-35.0) pg MCHC (31.0-37.0) g/dL RDW (11.5-15.5) % Plt Count (150-450) k/uL MPV Neutrophils % % Lymphocytes % % Monocytes % % Eosinophils % % Basophils % % Neutrophils # (1.3-7.7) k/uL Lymphocytes # (1.0-4.8) k/uL Monocytes # (0-1.0) k/uL Eosinophils # (0-0.7) k/uL Basophils # (0-0.2) k/uL Sodium 135 L (137-145) mmol/L Potassium 3.5 (3.5-5.1) mmol/L Chloride 111 H (98-107) mmol/L Carbon Dioxide 22 (22-30) mmol/L Anion Gap 2 mmol/L BUN 9 (7-17) mg/dL Creatinine 0.42 L (0.52-1.04) mg/dL Est GFR (CKD-EPI)AfAm >90 (>60 ml/min/1.73 sqM) Est GFR (CKD-EPI)NonAf >90 (>60 ml/min/1.73 sqM) Glucose 84 (74-99) mg/dL Calcium 8.5 (8.4-10.2) mg/dL Total Bilirubin 0.4 (0.2-1.3) mg/dL AST 18 (14-36) U/L ALT 11 (4-34) U/L Alkaline Phosphatase 40 (38-126) U/L Total Protein 5.6 L (6.3-8.2) g/dL Albumin 3.3 L (3.5-5.0) g/dL HCG, Quant 60131.0 mIU/mL Urine Color Urine Appearance (Clear) Urine pH (5.0-8.0) Ur Specific Paron (1.001-1.035) Urine Protein (Negative) Urine Glucose (UA) (Negative) Urine Ketones (Negative) Urine Blood (Negative) Urine Nitrite (Negative) Urine Bilirubin (Negative) Urine Urobilinogen (<2.0) mg/dL Ur Leukocyte Esterase (Negative) Urine RBC (0-5) /hpf Urine WBC (0-5) /hpf Ur Squamous Epith Cells (0-4) /hpf Amorphous Sediment (None) /hpf Urine Mucus (None) /hpf Urine HCG, Qual (Not Detectd) Trichomonas Ag (Rapid) Positive H (Negative) Blood Type A Positive Blood Type Recheck A Pos Bld Type Recheck Status No Antibody Screen NEGATIVE Spec Expiration Date 08/31/20212306 - Radiology Data Radiology results: report reviewed, image reviewed Disposition Clinical Impression: Infection due to trichomonas (vaginalis), Threatened miscarriage in early , Vaginal discharge during Disposition: HOME SELF-CARE Condition: Good Instructions (If sedation given, give patient instructions): Threatened Miscarriage (ED), Sexually Transmitted Diseases (ED), Trichomoniasis (ED), Vaginal Discharge (ED) Additional Instructions: Call 8 AM Monday morning to schedule follow-up appointment with the [employer] physician. No sexual activity until cleared by the [employer] physician. Return to the ER immediately if any symptoms worsen, new symptoms arise, or any other problems develop. Is patient prescribed a controlled substance at d/c from ED?: No Referrals: Areli Richmond MD [STAFF PHYSICIAN] - 08/31/21 Time of Disposition: 00:27
[2021-08-28 21:13] LABS: Basophils # (A) 0.1 k/uL (0-0.2); Basophils % (A) 1 %; Eosinophils % (A) 0 %; HCT 38.4 % (34.0-46.0); HGB 12.5 gm/dL (11.4-16.0); Lymphocytes % (A) 28 %; MCHC 32.5 g/dL (31.0-37.0); MCV 92.2 fL (80.0-100.0); Mean Platelet Volume 7.2; Monocytes # (A) 0.9 k/uL (0-1.0); Monocytes % (A) 8 %; Neutrophils # (A) 6.4 k/uL (1.3-7.7); Neutrophils % (A) 60 %; Platelet Count 335 k/uL (150-450); RBC 4.16 m/uL (3.80-5.40); RDW 13.3 % (11.5-15.5); WBC 10.5 k/uL (3.8-10.6)
--- NOTE | 2021-08-28 21:22 | US ---
EXAMINATION TYPE: Transabdominal DATE OF EXAM: 08/28/2021 9:13 PM COMPARISON: NONE CLINICAL HISTORY: pain. spotting EXAM PERFORMED: Transabdominal (TA) EXAM MEASUREMENTS: GESTATIONAL AGE / DATING Physician Established: Not yet established Dates by LMP: LMP unknown Dates by First Scan: No previous this is first scan Dates by Current Scan for: (12 weeks/1 days) EDC: 03/11/2022 MATERNAL ANATOMY Uterus: 13.6 x 8.2 x 9.2 cm Right Ovary: 2.2 x 1.9 x 1.8 cm Left Ovary: 2.2 x 1.3 x 1.7 cm Post CDS / Adnexa: wnl Presence of free fluid: no Presence of corpus luteal cyst: no Presence of subchorionic bleed: no GESTATION / SURVEY CRL: 5.5 cm (12 weeks/1 days) Heart Rate: 163 bpm Rhythm: Normal IUP: Viable IUP IMPRESSION: The ultrasound gestational age is 12 weeks and 1 day. No complicating process seen.
[2021-08-28 22:34] LABS: ALT 11 U/L (4-34); AST 18 U/L (14-36); African American GFR (CKD) >90 (>60 ml/min/1.73 sqM); Albumin 3.3 g/dL (3.5-5.0); Alkaline Phosphatase 40 U/L (38-126); Anion Gap 2 mmol/L; Blood Urea Nitrogen 9 mg/dL (7-17); Calcium 8.5 mg/dL (8.4-10.2); Carbon Dioxide 22 mmol/L (22-30); Chloride 111 mmol/L (98-107); Glucose 84 mg/dL (74-99); Non-African American GFR(CKD) >90 (>60 ml/min/1.73 sqM); Potassium 3.5 mmol/L (3.5-5.1); Sodium 135 mmol/L (137-145); Total Bilirubin 0.4 mg/dL (0.2-1.3); Total Protein 5.6 g/dL (6.3-8.2)
[2021-08-28] MEDS ORDERED: cefTRIAXone 250 MG VIAL IM STA (22:55)
[2021-08-28] MEDS ORDERED: AZITHROMYCIN 500 MG TAB PO STA (22:56)
[2021-08-28] MEDS ORDERED: metroNIDAZOLE 500 MG TAB PO STA (22:57)
[2021-08-29 00:40] VITALS: BP 122/76; PULSE 84; RESP 16; TEMP 97.4
[2021-09-01 06:49] LABS: C. trachomatis,PCR Negative (Neg,Equiv); Chlamydia trachomatis Source Urine; N. gonorrhoeae,PCR Negative (Neg,Equiv); Neisseria Source Urine
== END 2021-08-29 00:40 | disposition home or self-care (01) ==
LOC: EC 16:54
DX: O20.0 Threatened abortion (principal); O98.311 Other infections with a predominantly sexual mode of transmission complicating pregnancy, first trimester; A59.01 Trichomonal vulvovaginitis; O99.331 Smoking (tobacco) complicating pregnancy, first trimester; O99.511 Diseases of the respiratory system complicating pregnancy, first trimester; F17.200 Nicotine dependence, unspecified, uncomplicated; J45.909 Unspecified asthma, uncomplicated; Z3A.12 12 weeks gestation of pregnancy; Z67.10 Type A blood, Rh positive
CPT/HCPCS: 36415; 86900; 86901; 80053; 85025; 86850; 81001; 81025; 84702; 87808; 87491; 87591; 87070; 87086; 76801; 99284; 96360; 96361; 96372; J0696

== ENCOUNTER 2021-09-15 01:25 | Emergency (ER) | payer OTHER ==
[2021-09-15 01:31] VITALS: TEMP 98.2
[2021-09-15] MEDS ORDERED: SODIUM CHLORIDE 0.9% 1,000 ML IV ONE (01:52)
[2021-09-15] MEDS ORDERED: ACETAMINOPHEN TAB 500 MG TAB PO STA (01:52)
--- NOTE | 2021-09-15 01:52 | ED ---
Female Urogenital HPI - General Chief complaint: Vaginal Bleeding Stated complaint: Vaginal bleeding, 14 wks preg Time Seen by Provider: 09/15/21 01:46 Source: patient, RN notes reviewed Mode of arrival: ambulatory Limitations: no limitations - History of Present Illness Initial comments: Patient presents to the emergency department stating that she is at 14 weeks gestation. Patient started having vaginal bleeding today which she states is heavier than her normal menstrual. She has some pelvic cramping. Patient again, 14 weeks , senior sourcing manager is Dr. Mosqueda. Patient was seen here on August 28 for vaginal bleeding as well. At that time she had blood work done which shows an Rh factor that is positive. Transvaginal ultrasound at that time showed an intrauterine at 12 weeks, 1 day gestation with no complicating process. heart rate was 163. No headache, no fever or chills, no changes in vision or hearing, no sore throat or difficulty with speech, no neck pain, no chest pain or shortness of breath, no abdominal pain, no nausea or vomiting, no changes in urination or bowel movements, no numbness or tingling, no extremity pain, no skin rashes or lesions. Complaint: vaginal bleeding - Related Data Previous Rx's Medication Instructions Recorded Albuterol Sulfate [Albuterol 2 puff PO Q6H #8.5 gm 09/15/21 Sulfate Hfa] Allergies Allergy/AdvReac Type Severity Reaction Status Date / Time No Known Allergies Allergy Verified 09/15/21 01:27 Review of Systems ROS Statement: Those systems with pertinent positive or pertinent negative responses have been documented in the HPI. ROS Other: All systems not noted in ROS Statement are negative. Past Medical History Past Medical History: Cancer Additional Past Medical History / Comment(s): SKIN. 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 Past Anesthesia/Blood Transfusion Reactions: No Reported Reaction Past Psychological History: Bipolar, Depression Smoking Status: Current every day smoker Past Alcohol Use History: None Reported Past Drug Use History: None Reported - Past Family History Mother Family Medical History: Thyroid Disorder General Exam Limitations: no limitations Course Vital Signs 09/15/21 09/15/21 09/15/21 01:27 02:09 02:46 Temperature 98.2 F Pulse Rate 112 H 108 H 100 Respiratory 16 18 Rate Blood Pressure 118/78 117/68 O2 Sat by Pulse 98 100 Oximetry 09/15/21 02:57 Temperature Pulse Rate 98 Respiratory Rate Blood Pressure O2 Sat by Pulse Oximetry - Reevaluation(s) Reevaluation #1: 09/15/21 03:02 Patient reevaluated and is resting comfortably in the room. Symptoms have es sentially resolved. Patient states she is still bleeding a little bit of slowing down. Patient denies any lightheadedness. Denies any palpitations. heart tones were in the 150s per the labor and delivery nurse. Again, patient's Rh factor is positive from previous visit. Procedures - Smoking Cessation Time Spent Discussing Smoking Cessation w/Patient (Minutes): 5 Patient Acknowledges Need for Cessation: Yes Medical Decision Making - Medical Decision Making Patient is A0. Patient has documented positive Rh from August 28. Ultrasound showed a 12 week 2 day gestation with no evidence of subchorionic bleeding at that time. She was feeling better and wanted to be discharged. States that her vaginal bleeding is slowing down. Denied any symptoms of presyncope. No lightheadedness. No palpitations. Pelvic cramping had resolved. heart tones were in the 150s and 160s. I did give the patient the option of waiting u ntil the morning to get an ultrasound. However she states that she wants to go home. Patient feels well enough to be discharged. Patient was noted be tachycardic but just received an albuterol updraft. I suspect this is contributing to the cardiac as well as the patient being anxious. Patient had no respiratory distress. Patient does use inhalers at home and continues to smoke cigarettes. Patient was hemolytically stable otherwise. Patient was told to return to the ER for any signs or symptoms worsen. Told to return immediately if any other problems arise. All questions answered. Treatment plan discussed. Patient in agreement Every effort has been made to ensure accuracy of this dictation. However, due to the limitations of electronic medical records and dictation devices, errors in charting still occur. The case was discussed in detail with ED attending physician. Presentation, findings, treatment plan discussed in detail. Going to have the patient contact Dr. Mosqueda's office in the morning. Again, the patient was counseled on smoking cessation. Personal Coach Norma - Lab Data Result diagrams: 09/15/21 02:00 09/15/21 02:00 Lab Results 09/15/21 09/15/21 09/15/21 Range/Units 02:00 02:00 02:00 WBC 11.3 H (3.8-10.6) k/uL RBC 4.25 (3.80-5.40) m/uL Hgb 12.7 (11.4-16.0) gm/dL Hct 38.5 (34.0-46.0) % MCV 90.6 (80.0-100.0) fL MCH 30.0 (25.0-35.0) pg MCHC 33.1 (31.0-37.0) g/dL RDW 13.1 (11.5-15.5) % Plt Count 411 (150-450) k/uL MPV 7.0 Neutrophils % 66 % Lymphocytes % 24 % Monocytes % 7 % Eosinophils % 0 % Basophils % 1 % Neutrophils # 7.5 (1.3-7.7) k/uL Lymphocytes # 2.8 (1.0-4.8) k/uL Monocytes # 0.8 (0-1.0) k/uL Eosinophils # 0.0 (0-0.7) k/uL Basophils # 0.1 (0-0.2) k/uL PT 11.2 (9.0-12.0) sec INR 1.0 (<1.2) APTT 26.3 (22.0-30.0) sec Sodium 135 L (137-145) mmol/L Potassium 3.9 (3.5-5.1) mmol/L Chloride 107 (98-107) mmol/L Carbon Dioxide 20 L (22-30) mmol/L Anion Gap 8 mmol/L BUN 13 (7-17) mg/dL Creatinine 0.57 (0.52-1.04) mg/dL Est GFR (CKD-EPI)AfAm >90 (>60 ml/min/1.73 sqM) Est GFR (CKD-EPI)NonAf >90 (>60 ml/min/1.73 sqM) Glucose 100 H (74-99) mg/dL Calcium 9.4 (8.4-10.2) mg/dL Total Bilirubin 0.5 (0.2-1.3) mg/dL AST 24 (14-36) U/L ALT 15 (4-34) U/L Alkaline Phosphatase 52 (38-126) U/L Total Protein 7.2 (6.3-8.2) g/dL Albumin 4.3 (3.5-5.0) g/dL Disposition Clinical Impression: Threatened miscarriage in early , Vaginal bleeding before 22 weeks gestation, Cigarette smoker Disposition: HOME SELF-CARE Condition: Good Instructions (If sedation given, give patient instructions): Threatened Miscarriage (ED), How to Stop Smoking (ED) Additional Instructions: Pelvic rest, no sexual activity until cleared by Dr. Mosqueda. Work on smoking cessation. Call Dr. Mosqueda at 8 AM for further guidance. Return to the ER immediately if any symptoms worsen, new symptoms arise, or any other problems develop. Prescriptions: Albuterol Sulfate [Albuterol Sulfate Hfa] 2 puff PO Q6H #8.5 gm Is patient prescribed a controlled substance at d/c from ED?: No Referrals: Elena Mosqueda DO [Doctor of Osteopathic Medicine] - 1-2 days Time of Disposition: 03:06
[2021-09-15 02:11] LABS: Basophils # (A) 0.1 k/uL (0-0.2); Basophils % (A) 1 %; Eosinophils % (A) 0 %; HCT 38.5 % (34.0-46.0); HGB 12.7 gm/dL (11.4-16.0); Lymphocytes # (A) 2.8 k/uL (1.0-4.8); Lymphocytes % (A) 24 %; MCHC 33.1 g/dL (31.0-37.0); MCV 90.6 fL (80.0-100.0); Monocytes # (A) 0.8 k/uL (0-1.0); Monocytes % (A) 7 %; Neutrophils # (A) 7.5 k/uL (1.3-7.7); Neutrophils % (A) 66 %; Platelet Count 411 k/uL (150-450); RBC 4.25 m/uL (3.80-5.40); RDW 13.1 % (11.5-15.5); WBC 11.3 k/uL (3.8-10.6)
[2021-09-15 02:12] VITALS: RESP 18
[2021-09-15] MEDS ORDERED: ALBUTEROL NEBULIZED 2.5 MG/3 ML INHALATION STA (02:19)
[2021-09-15 02:26] LABS: Potassium 3.9 mmol/L (3.5-5.1)
[2021-09-15 02:27] LABS: ALT 15 U/L (4-34); AST 24 U/L (14-36); African American GFR (CKD) >90 (>60 ml/min/1.73 sqM); Albumin 4.3 g/dL (3.5-5.0); Alkaline Phosphatase 52 U/L (38-126); Anion Gap 8 mmol/L; Blood Urea Nitrogen 13 mg/dL (7-17); Calcium 9.4 mg/dL (8.4-10.2); Carbon Dioxide 20 mmol/L (22-30); Chloride 107 mmol/L (98-107); Glucose 100 mg/dL (74-99); Non-African American GFR(CKD) >90 (>60 ml/min/1.73 sqM); Partial Thromboplastin Time 26.3 sec (22.0-30.0); Prothrombin Time 11.2 sec (9.0-12.0); Sodium 135 mmol/L (137-145); Total Bilirubin 0.5 mg/dL (0.2-1.3); Total Protein 7.2 g/dL (6.3-8.2)
[2021-09-15 04:03] VITALS: BP 117/67; PULSE 112
== END 2021-09-15 04:01 | disposition home or self-care (01) ==
LOC: EC 01:25
DX: O20.0 Threatened abortion (principal); O99.512 Diseases of the respiratory system complicating pregnancy, second trimester; O99.342 Other mental disorders complicating pregnancy, second trimester; O99.332 Smoking (tobacco) complicating pregnancy, second trimester; J45.909 Unspecified asthma, uncomplicated; F31.9 Bipolar disorder, unspecified; F17.210 Nicotine dependence, cigarettes, uncomplicated; Z3A.14 14 weeks gestation of pregnancy
CPT/HCPCS: 36415; 80053; 85025; 85610; 85730; 94640; 96360; 99284

== ENCOUNTER 2021-11-03 16:34 | Outpatient (CLI) | payer OTHER ==
[2021-11-03 17:19] LABS: Appearance,Urine Clear (Clear); Bilirubin,Urine Negative (Negative); Blood,Urine Negative (Negative); Color,Urine Yellow; Glucose,Urine (UA) Negative (Negative); Ketones,Urine 1+ (Negative); Leukocyte Esterase,Urine Small (Negative); Mucus,Urine Rare /hpf; Nitrite,Urine Negative (Negative); Protein,Urine Trace (Negative); RBC,Urine 5 /hpf (0-5); Specific Gravity,Urine 1.013 (1.001-1.035); Squamous Epithelial Cell,Urine 3 /hpf (0-4); Urobilinogen,Urine <2.0 mg/dL (<2.0); WBC,Urine 28 /hpf (0-5)
[2021-11-03 17:24] LABS: Amphetamine Screen,Urine Detected (NotDetected); Barbiturate Screen,Urine Not Detected (NotDetected); Benzodiazepines Screen,Urine Not Detected (NotDetected); Cocaine Screen,Urine Not Detected (NotDetected); Methadone Screen, Urine Not Detected (NotDetected); Opiate Screen,Urine Not Detected (NotDetected); Oxycodone Screen, Urine Not Detected (NotDetected); Phencyclidine Screen,Urine Not Detected (NotDetected); Tricyclic Antidepressant,Urine Not Detected (NotDetected); Urn Cannabinoid Scrn Not Detected (NotDetected)
[2021-11-03 17:58] VITALS: BP 122/60; PULSE 111; RESP 16; TEMP 98.3
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
== END 2021-11-03 17:35 | disposition home or self-care (01) ==
LOC: FBPOP 16:34
PROVIDERS: ATTEND Obstetrics & Gynecology
DX: O47.02 False labor before 37 completed weeks of gestation, second trimester (principal); Z3A.21 21 weeks gestation of pregnancy; Z87.891 Personal history of nicotine dependence
CPT/HCPCS: 81001; 80306; 87086; G0463; 99213

== ENCOUNTER 2022-02-10 14:13 | Outpatient (CLI) | payer OTHER ==
[2022-02-10 15:34] LABS: Amorphous Sediment,Urine Occasional /hpf; Appearance,Urine Cloudy (Clear); Bacteria,Urine Occasional /hpf; Bilirubin,Urine Negative (Negative); Blood,Urine Negative (Negative); Color,Urine Yellow; Glucose,Urine (UA) Negative (Negative); Hyaline Casts,Urine 1 /lpf (0-2); Ketones,Urine Negative (Negative); Leukocyte Esterase,Urine Moderate (Negative); Mucus,Urine Rare /hpf; Nitrite,Urine Negative (Negative); Protein,Urine Negative (Negative); RBC,Urine 1 /hpf (0-5); Specific Gravity,Urine 1.012 (1.001-1.035); Squamous Epithelial Cell,Urine 2 /hpf (0-4); Urobilinogen,Urine <2.0 mg/dL (<2.0); WBC,Urine 5 /hpf (0-5)
[2022-02-10 15:42] LABS: Amphetamine Screen,Urine Not Detected (NotDetected); Barbiturate Screen,Urine Not Detected (NotDetected); Benzodiazepines Screen,Urine Not Detected (NotDetected); Cocaine Screen,Urine Not Detected (NotDetected); Methadone Screen, Urine Not Detected (NotDetected); Opiate Screen,Urine Not Detected (NotDetected); Oxycodone Screen, Urine Not Detected (NotDetected); Phencyclidine Screen,Urine Not Detected (NotDetected); Tricyclic Antidepressant,Urine Not Detected (NotDetected); Urn Cannabinoid Scrn Not Detected (NotDetected)
[2022-02-10 16:35] VITALS: BP 116/70; PULSE 107; RESP 16; TEMP 96.6
--- NOTE | 2022-02-14 04:38 | CONS ---
CONSULTATION I saw this patient on February 10, 2022 at 3:30 p.m. CHIEF COMPLAINT: Blurry vision, both eyes. HISTORY OF PRESENT ILLNESS: The patient experienced blurry vision, both eyes, after what was diagnosed as . The patient is 34 weeks' gestation. Medical history reviewed and blood tests were also reviewed. Eye examination, vision with pinhole 20/30 in both eyes for close up card. The patient is hooked to monitors and IV and was unable to be seen except on bed. Pupils were equal and reactive. Confrontation was normal in both eyes. Eye movements were full. Lids and conjunctivae were normal. Intraocular pressure was 19 in the right eye and 21 in the left eye. Lens was clear. Vitreous was normal with no cells. Discs were both normal of good color, not elevated. Blood vessels were also normal. Rest of retina exam was normal including the macula. ASSESSMENT: Visual disturbance. PLAN: On the hospital eye examination, there was no critical eye condition or acute eye condition. The patient is delivering in a few days. After delivery, she was instructed to see her supervisor shuttle preparation in [place] or to call us if condition gets worse. MMODL / IJN: [id number] /
== END 2022-02-10 16:37 ==
LOC: FBPOP 14:13
PROVIDERS: ATTEND Obstetrics & Gynecology
DX: O26.893 Other specified pregnancy related conditions, third trimester (principal); Z3A.34 34 weeks gestation of pregnancy; F17.200 Nicotine dependence, unspecified, uncomplicated; H53.9 Unspecified visual disturbance
CPT/HCPCS: 59025; 80306; 81001

== ENCOUNTER 2022-02-11 16:11 | Inpatient (IN) | payer OTHER ==
--- NOTE | 2022-02-11 17:03 | ED ---
General Adult HPI - General Chief complaint: Neuro Symptoms/Deficit Stated complaint: 36 weeks preg/stroke symptoms Time Seen by Provider: 02/11/22 16:32 Source: patient, RN notes reviewed, old records reviewed Mode of arrival: ambulatory Limitations: physical limitation - History of Present Illness Initial comments: Patient is a 36 week old female who has a surrogacy presents emergency Department from the BOARD OF EDUCATION SECRETARY floor over concern for strokelike symptoms. Patient was evaluated on the BOARD OF EDUCATION SECRETARY floor yesterday and discharged home. Presented again today and was initially taken up to the floor for evaluation but returns for strokelike symptoms to the emergency department. Last known well was approximately 11 AM. She woke at 2pm this afternoon with complaints of right- sided weakness, numbness as well as left-sided facial weakness, slurred speech. Patient states she does have a known "blood clot" on her placenta but denies any other history of blood clots or known past medical history. Is not on blood thinners. States she was napping on and off throughout the day today when she suddenly noticed her symptoms. She woke from a nap at 11 AM, and felt normal with no symptoms. Back to sleep and awoke at 2 PM with the symptoms. No known history of strokes. No known traumas or blood thinners.. Presents to the emergency department at this time for further evaluation. Symptoms at home included right-sided weakness, right-sided decreased sensation, left-sided facial droop and slurred speech. States some of her symptoms are improving but they're still present. Patient's aunt is with her who corroborates this. - Related Data Home Medications Medication Instructions Recorded Confirmed No Known Home Medications 02/11/22 02/11/22 Allergies Allergy/AdvReac Type Severity Reaction Status Date / Time No Known Allergies Allergy Verified 02/11/22 19:32 Review of Systems ROS Statement: Those systems with pertinent positive or pertinent negative responses have been documented in the HPI. Review of Systems: CONST: Denies fever EYES: Denies blurry vision ENT: Denies nasal congestion C/V: Denies Chest pain RESP: Denies shortness of breath GI: Denies abdominal pain : Denies dysuria SKIN: Denies rash. MSK: Denies joint pain. NEURO: Endorses strokelike symptoms ROS Other: All systems not noted in ROS Statement are negative. Past Medical History Past Medical History: Cancer Additional Past Medical History / Comment(s): SKIN. 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 HEAD: Normal with no signs of head trauma. EYES: PERRLA, EOMI, conjunctiva normal, no discharge. Pupils 3 mm and equal bilaterally. ENT: Hearing grossly intact, normal oropharynx. RESPIRATORY: Clear breath sounds bilaterally. No wheezes, rales, or rhonchi. C/V: Regular rate and rhythm. S1 and S2 auscultated, no edema, peripheral pulses 2+ and intact throughout ABD: Gravid uterus. non tender to palpation. EXT: Normal range of motion, no obvious deformity SKIN: No rashes or lesions observed on exposed skin. NEURO: Alert and oriented 4. NIH of 4. 1 point for paralysis of left face, 1 point for sensory loss on the right side, 1 point for dysarthria Last known well 11 AM. 1 point for weakness of the right leg. Limitations: physical limitation Course Vital Signs 02/11/22 02/11/22 02/11/22 16:15 16:35 16:38 Temperature 98.0 F 98 F Pulse Rate 100 96 86 Pulse Rate [ Pulse Oximetery ] Respiratory 18 20 16 Rate Blood Pressure 110/72 118/79 118/79 Blood Pressure [Left Arm] O2 Sat by Pulse 98 99 99 Oximetry 02/11/22 02/11/22 02/11/22 16:57 17:43 20:10 Temperature Pulse Rate 96 68 100 Pulse Rate [ Pulse Oximetery ] Respiratory 20 16 20 Rate Blood Pressure 127/75 126/78 119/62 Blood Pressure [Left Arm] O2 Sat by Pulse 99 99 97 Oximetry 02/11/22 02/11/22 20:29 21:35 Temperature 97.7 F Pulse Rate 68 Pulse Rate [ 119 H Pulse Oximetery ] Respiratory 16 17 Rate Blood Pressure 145/60 Blood Pressure 147/60 [Left Arm] O2 Sat by Pulse 98 100 Oximetry Medical Decision Making - Medical Decision Making Based on the patient's presentation and physical exam, I'm concerned for a possible CVA for the patient. Last known well was 5 hours ago at 11 AM. NIH is 4. She is not a TPA candidate at this time as risks far outweigh the benefits considering her being outside the TPA window as well as her currently being . She expressed understanding. We will obtain a stroke workup. We will initially start with only a CT brain without contrast at this time. Prior to obtaining CT, she was uncertain as she is a surrogate for this whether she needs to consult with the future parents of her surrogate child. We did contact the agency social problems specialist, who states that the patient has full autonomy over medical decisions for her and this current until the child was born. Therefore we do not need to speak or obtain consent from the future parents. Patient was in agreement this plan. She did consent to CT brain at this time. I spoke with Dr. Winkler of neuro critical care who was in agreement with the above plan. Does not want to use contrast. Patient is not a TPA candidate. Requested MRI of the brain without contrast as well as MRA head and neck without contrast stat. Recommended aspirin or Plavix after discussion with patient to BOARD OF EDUCATION SECRETARY. Likely medical management. I spoke with Dr. Mosqueda the patient's BOARD OF EDUCATION SECRETARY. She was in agreement with all of the imaging above both CT and MRI. She was also in agreement with using aspirin. EKG showed no signs of acute ischemia. Patient's laboratories studies were remarkable for mild leukocytosis of 12.5 which is likely reactive. Remainder the labs are relatively unremarkable. CT brain revealed no acute intercranial process. No acute traumatic injury. No bleed. At this time I did speak with MRI over the phone, avionics test technician Casey. He was in agreement with the plan for stat MRI. Patient will be taken immediately. Orders were placed by myself. We will obtain MRI brain without contrast as well as MRA head and neck without contrast. Patient will be given an aspirin 325 mg prior to transfer to MRI. Brain MRI showed no acute intracranial process. MRA was normal as well. At this time, patient did present back to the emergency department. NIH is currently 1 for a left-sided facial droop, very mild in the lower face. She is feeling improved. She is asking for food. We discussed results. I would like to admitted to the hospital for further monitoring. She was in agreement this plan. I did speak with Dr. Winkler again regarding imaging results. He was in agreement with medical management, and requested the patient be admitted to the hospital for neuro checks. Was in agreement with the aspirin dose. We discuss the imaging findings. Could be possibly a complicated migraine however patient never complained of a headache. Would like continue neurological monitoring. I spoke with Dr. Mcgarry of on-call neurology who was in agreement with the plan. I spoke with the admitting physician, Dr. Ye who accepted the patient was in agreement the plan. Patient was admitted to [facility] in stable condition. Vital signs remained within acceptable limits. Neuro exam remains NIH of 1 at this time. No suspicion for preeclampsia or help syndrome, as the patient is not hypertensive, and laboratory studies do not suggest this. She'll be admitted for further monitoring. - Lab Data Result diagrams: 02/11/22 16:56 02/11/22 16:56 Lab Results 02/11/22 02/11/22 02/11/22 Range/Units 16:56 16:56 16:56 WBC 12.5 H (3.8-10.6) k/uL RBC 4.01 (3.80-5.40) m/uL Hgb 10.1 L (11.4-16.0) gm/dL Hct 31.3 L (34.0-46.0) % MCV 78.1 L (80.0-100.0) fL MCH 25.1 (25.0-35.0) pg MCHC 32.2 (31.0-37.0) g/dL RDW 15.0 (11.5-15.5) % Plt Count 385 (150-450) k/uL MPV 8.3 Neutrophils % 70 % Lymphocytes % 21 % Monocytes % 6 % Eosinophils % 0 % Basophils % 1 % Neutrophils # 8.7 H (1.3-7.7) k/uL Lymphocytes # 2.7 (1.0-4.8) k/uL Monocytes # 0.8 (0-1.0) k/uL Eosinophils # 0.0 (0-0.7) k/uL Basophils # 0.1 (0-0.2) k/uL Hypochromasia Moderate PT 10.2 (9.0-12.0) sec INR 0.9 (<1.2) APTT 24.9 (22.0-30.0) sec Sodium 135 L (137-145) mmol/L Potassium 3.2 L (3.5-5.1) mmol/L Chloride 102 (98-107) mmol/L Carbon Dioxide 23 (22-30) mmol/L Anion Gap 10 mmol/L BUN 3 L (7-17) mg/dL Creatinine 0.41 L (0.52-1.04) mg/dL Est GFR (CKD-EPI)AfAm >90 (>60 ml/min/1.73 sqM) Est GFR (CKD-EPI)NonAf >90 (>60 ml/min/1.73 sqM) Glucose 86 (74-99) mg/dL POC Glucose (mg/dL) (70-110) mg/dL POC Glu Release Engineer ID Calcium 8.4 (8.4-10.2) mg/dL Total Bilirubin 0.4 (0.2-1.3) mg/dL AST 22 (14-36) U/L ALT 13 (4-34) U/L Alkaline Phosphatase 230 H (38-126) U/L Troponin I (0.000-0.034) ng/mL Total Protein 6.5 (6.3-8.2) g/dL Albumin 3.6 (3.5-5.0) g/dL Urine Color Urine Appearance (Clear) Urine pH (5.0-8.0) Ur Specific [place] (1.001-1.035) Urine Protein (Negative) Urine Glucose (UA) (Negative) Urine Ketones (Negative) Urine Blood (Negative) Urine Nitrite (Negative) Urine Bilirubin (Negative) Urine Urobilinogen (<2.0) mg/dL Ur Leukocyte Esterase (Negative) Urine RBC (0-5) /hpf Urine WBC (0-5) /hpf Ur Squamous Epith Cells (0-4) /hpf Urine Bacteria (None) /hpf Urine Mucus (None) /hpf 02/11/22 02/11/22 02/11/22 Range/Units 16:56 17:16 17:32 WBC (3.8-10.6) k/uL RBC (3.80-5.40) m/uL Hgb (11.4-16.0) gm/dL Hct (34.0-46.0) % MCV (80.0-100.0) fL MCH (25.0-35.0) pg MCHC (31.0-37.0) g/dL RDW (11.5-15.5) % Plt Count (150-450) k/uL MPV Neutrophils % % Lymphocytes % % Monocytes % % Eosinophils % % Basophils % % Neutrophils # (1.3-7.7) k/uL Lymphocytes # (1.0-4.8) k/uL Monocytes # (0-1.0) k/uL Eosinophils # (0-0.7) k/uL Basophils # (0-0.2) k/uL Hypochromasia PT (9.0-12.0) sec INR (<1.2) APTT (22.0-30.0) sec Sodium (137-145) mmol/L Potassium (3.5-5.1) mmol/L Chloride (98-107) mmol/L Carbon Dioxide (22-30) mmol/L Anion Gap mmol/L BUN (7-17) mg/dL Creatinine (0.52-1.04) mg/dL Est GFR (CKD-EPI)AfAm (>60 ml/min/1.73 sqM) Est GFR (CKD-EPI)NonAf (>60 ml/min/1.73 sqM) Glucose (74-99) mg/dL POC Glucose (mg/dL) 79 (70-110) mg/dL POC Glu Release Engineer ID Hung Solorzano Calcium (8.4-10.2) mg/dL Total Bilirubin (0.2-1.3) mg/dL AST (14-36) U/L ALT (4-34) U/L Alkaline Phosphatase (38-126) U/L Troponin I <0.012 (0.000-0.034) ng/mL Total Protein (6.3-8.2) g/dL Albumin (3.5-5.0) g/dL Urine Color Light Yellow Urine Appearance Cloudy H (Clear) Urine pH 7.0 (5.0-8.0) Ur Specific [place] 1.007 (1.001-1.035) Urine Protein Negative (Negative) Urine Glucose (UA) Negative (Negative) Urine Ketones Negative (Negative) Urine Blood Trace H (Negative) Urine Nitrite Negative (Negative) Urine Bilirubin Negative (Negative) Urine Urobilinogen <2.0 (<2.0) mg/dL Ur Leukocyte Esterase Large H (Negative) Urine RBC 2 (0-5) /hpf Urine WBC 12 H (0-5) /hpf Ur Squamous Epith Cells 6 H (0-4) /hpf Urine Bacteria Moderate H (None) /hpf Urine Mucus Rare H (None) /hpf - EKG Data -: EKG Interpreted by Me EKG Comments: 12-lead Electrocardiogram Interpretation Note EKG was reviewed and interpreted by myself. 12-lead ECG performed at 1643 is interpreted by me as revealing normal sinus rhythm at a rate of 95 beats per m inute. [place] is normal. OK interval is 128 ms, QRS duration is 84 ms, QTc is 434 ms.. There were no ST or T wave abnormalities to suggest myocardial ischemia or injury. R wave progression across the precordium was satisfactory. By my interpretation this EKG is non-diagnostic for acute ischemia. Critical Care Time Critical Care Time: Yes Total Critical Care Time: 35 Critical Care Time: Upon my evaluation, this patient had a high probability of imminent or life- threatening deterioration due to stroke activation, possible CVA, , which required my direct attention, intervention, and personal management. I have personally provided 35 minutes of critical care time exclusive of time spent on separately billable procedures. Time includes review of laboratory data, radiology results, discussion with consultants, and monitoring for potential decompensation. Interventions were performed as documented in my note. Disposition Clinical Impression: , Neurological deficit, transient, Neurological deficit present Disposition: ADMITTED IP TO THIS HOSP Condition: Stable Time of Disposition: 19:00
--- NOTE | 2022-02-11 17:08 | CT ---
EXAMINATION TYPE: CT brain wo con for TPA DATE OF EXAM: 02/11/2022 COMPARISON: 10/27/2015 Images obtained of the brain with no contrast. The ventricles and sulci appear normal. There is no mass effect or midline shift. No sign of intracra nial hemorrhage. Calvarium is intact. There is normal aeration of the mastoids sinuses. Skull base is intact. No evidence of cerebral edema. HISTORY: Neuro deficit, acute, stroke suspected. pt [address] DLP: 1081 mGycm Automated exposure control for dose reduction was used. IMPRESSION: Negative unenhanced head CT scan. No change.
[2022-02-11] MEDS ORDERED: ASPIRIN 325 MG TAB PO STA (17:13)
[2022-02-11 17:32] LABS: Appearance,Urine Cloudy (Clear); Bacteria,Urine Moderate /hpf; Bilirubin,Urine Negative (Negative); Blood,Urine Trace (Negative); Color,Urine Light Yellow; Glucose,Urine (UA) Negative (Negative); Ketones,Urine Negative (Negative); Leukocyte Esterase,Urine Large (Negative); Mucus,Urine Rare /hpf; Nitrite,Urine Negative (Negative); Protein,Urine Negative (Negative); RBC,Urine 2 /hpf (0-5); Specific Gravity,Urine 1.007 (1.001-1.035); Squamous Epithelial Cell,Urine 6 /hpf (0-4); Urobilinogen,Urine <2.0 mg/dL (<2.0); WBC,Urine 12 /hpf (0-5)
[2022-02-11 17:42] LABS: Glucose,Whole Blood 79 mg/dL (70-110)
[2022-02-11 17:47] LABS: Basophils # (A) 0.1 k/uL (0-0.2); Basophils % (A) 1 %; Eosinophils % (A) 0 %; HCT 31.3 % (34.0-46.0); HGB 10.1 gm/dL (11.4-16.0); Hypochromasia Moderate; Lymphocytes # (A) 2.7 k/uL (1.0-4.8); Lymphocytes % (A) 21 %; MCH 25.1 pg (25.0-35.0); MCHC 32.2 g/dL (31.0-37.0); MCV 78.1 fL (80.0-100.0); Mean Platelet Volume 8.3; Monocytes # (A) 0.8 k/uL (0-1.0); Monocytes % (A) 6 %; Neutrophils # (A) 8.7 k/uL (1.3-7.7); Neutrophils % (A) 70 %; Platelet Count 385 k/uL (150-450); RBC 4.01 m/uL (3.80-5.40); WBC 12.5 k/uL (3.8-10.6)
[2022-02-11 17:55] LABS: INR 0.9 (<1.2); Partial Thromboplastin Time 24.9 sec (22.0-30.0); Prothrombin Time 10.2 sec (9.0-12.0)
[2022-02-11 17:58] LABS: ALT 13 U/L (4-34); AST 22 U/L (14-36); African American GFR (CKD) >90 (>60 ml/min/1.73 sqM); Albumin 3.6 g/dL (3.5-5.0); Alkaline Phosphatase 230 U/L (38-126); Anion Gap 10 mmol/L; Blood Urea Nitrogen 3 mg/dL (7-17); Calcium 8.4 mg/dL (8.4-10.2); Carbon Dioxide 23 mmol/L (22-30); Chloride 102 mmol/L (98-107); Glucose 86 mg/dL (74-99); Non-African American GFR(CKD) >90 (>60 ml/min/1.73 sqM); Potassium 3.2 mmol/L (3.5-5.1); Sodium 135 mmol/L (137-145); Total Bilirubin 0.4 mg/dL (0.2-1.3); Total Protein 6.5 g/dL (6.3-8.2)
--- NOTE | 2022-02-11 18:39 | MR ---
EXAMINATION TYPE: MR brain wo con DATE OF EXAM: 02/11/2022 COMPARISON: None HISTORY: CVA, 36 WEEKS Multiplanar multiecho imaging of the brain performed without contrast. Ventricles and sulci appear normal. There is no mass effect or midline shift. Diffusion images show n o sign of an acute infarct. Brainstem is intact. Corpus callosum appears normal. Sella turcica is nor mal. No evidence of cerebral edema. No evidence of orbital mass. IMPRESSION: Normal MRI scan of the brain.
--- NOTE | 2022-02-11 18:42 | MR ---
EXAMINATION TYPE: MR angio head/neck wo con DATE OF EXAM: 02/11/2022 COMPARISON: None HISTORY: CVA, 36 WEEKS MR angiographic images were obtained of the cervical carotid and vertebral arteries. MR angiographic images of the brain were obtained without contrast. There is arterial flow in the anterior middle and posterior cerebral arteries. No mass effect. No mauri dence of intracranial arterial stenosis. There is arterial flow in the intracranial internal carotid arteries. No evidence of aneurysm or neovascularity. There is arterial flow in the vertebral basilar artery system. Vertebral arteries appear normal. There is arterial flow in the common internal and external carotid arteries bilaterally. There is art erial flow in both vertebral arteries. No evidence of carotid or vertebral artery aneurysm or dissect ion. No evidence of stenosis. IMPRESSION: Normal MR angiogram of the neck. Normal MR angiogram of the brain.
[2022-02-12] MEDS: SODIUM CHLORIDE 0.9% 1,000 ML IV SCH ×2 (00:30→20:11)
--- NOTE | 2022-02-12 01:00 | P.HPIM ---
History of Present Illness H&P Date: 02/11/22 Chief Complaint: stroke like symptoms 31 year old female with no significant past medical history patient comes in for evaluation regarding stroke like symptoms that was noted after she woke up from a nap around 2 pm today, last seen normal was around 11 am. patient is 36 week , she is in a surrogate mother program with full autonomy over the . she noted slurred speech, right sided weakness and numbness, and left facial weakness. she denies any history of stroke or blood clots. however, she claims to have a clot on her placenta. this is her 4th . she admits to cig smoking , but denies any alcohol or drugs . she denies any trauma, she is not on any blood thinners. upon presentation to the ED , he initial NIH was 4 , CT of the brain , MRI of the brain and MRA head and neck without contrast ,all were reported as normal . neurology consulting technical manager , recommended admission for observation overnight and Neurology evaluation. patient given aspirin , and currently her NIH is 1. patient feels her symptoms has improved , slurred speech resolved. facial asymmetry resolve. she reports some tongue swelling earlier that is improving, along with edema of the vaginal mucus membranes , she passed her mucus plug . Review of Systems Pertinent positives as noted in HPI. All other systems were reviewed and are neg ative Past Medical History Past Medical History: Cancer Additional Past Medical History / Comment(s): SKIN. 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 Past Anesthesia/Blood Transfusion Reactions: No Reported Reaction Past Psychological History: Bipolar, Depression Smoking Status: Current every day smoker - Past Family History Mother Family Medical History: Thyroid Disorder Additional Family Medical History / Comment(s): denies any family history of blood disorders and thrombosis Medications and Allergies Home Medications Medication Instructions Recorded Confirmed Type No Known Home Medications 02/11/22 02/11/22 History Allergies Allergy/AdvReac Type Severity Reaction Status Date / Time No Known Allergies Allergy Verified 02/11/22 19:32 Physical Exam Vitals: Vital Signs Temp Pulse Resp BP Pulse Ox 02/11/22 17:43 68 16 126/78 99 02/11/22 16:57 96 20 127/75 99 02/11/22 16:38 98 F 86 16 118/79 99 02/11/22 16:35 96 20 118/79 99 02/11/22 16:15 98.0 F 100 18 110/72 98 Intake and Output 02/11/22 02/11/22 02/11/22 06:59 14:59 22:59 Other: Weight 81.647 kg Constitutional: No acute distress, conversant, pleasant Eyes: Anicteric sclerae, moist conjunctiva, Pupils equal round reactive to light ENMT: NC/AT Oropharynx clear, no erythema, or exudates Neck: Supple, no masses, or JVD No carotid bruits No thyromegaly Lungs: Clear to auscultation Clear to percussion Normal respiratory effort, no accessory muscle use Cardiovascular: Heart regular in rate and rhythm, No murmurs, gallops, or rubs No peripheral edema Abdominal: Soft, palpable uterus below xiphisternum Nontender, no guarding, rebound or rigidity Abdomen moving with respiration Normoactive bowel sounds Skin: Normal temperature, tone, texture, turgor No induration No subcutaneous nodules No rash, lesions No ulcers Extremities: No digital cyanosis No clubbing Pedal pulses intact and symmetrical Radial pulses intact and symmetrical No calf tenderness Psychiatric: Alert and oriented to person, place and time Appropriate affect fair judgement Neuro Muscles Strength 5/5 in left upper and lower extremity , 4/5 in right upper and lower extremity Sensation to light touch grossly present throughout Cranial nerves II-XII grossly intact Lymphatics: no palpable cervical or supraclavicular lymph nodes Results CBC & Chem 7: 02/11/22 16:56 02/11/22 16:56 Labs: Abnormal Lab Results - Last 24 Hours (Table) 02/11/22 02/11/22 02/11/22 Range/Units 16:56 16:56 17:16 WBC 12.5 H (3.8-10.6) k/uL Hgb 10.1 L (11.4-16.0) gm/dL Hct 31.3 L (34.0-46.0) % MCV 78.1 L (80.0-100.0) fL Neutrophils # 8.7 H (1.3-7.7) k/uL Sodium 135 L (137-145) mmol/L Potassium 3.2 L (3.5-5.1) mmol/L BUN 3 L (7-17) mg/dL Creatinine 0.41 L (0.52-1.04) mg/dL Alkaline Phosphatase 230 H (38-126) U/L Urine Appearance Cloudy H (Clear) Urine Blood Trace H (Negative) Ur Leukocyte Esterase Large H (Negative) Urine WBC 12 H (0-5) /hpf Ur Squamous Epith Cells 6 H (0-4) /hpf Urine Bacteria Moderate H (None) /hpf Urine Mucus Rare H (None) /hpf Assessment and Plan Assessment: TIA neuro checks ASA CT brain , MRI brain , MRA head and neck , all negative (no contrast given ) neurology consult PT eval monitor vital signs 36 weeks OB consult microcytic anemia of vitamins hypokalemia replace , follow up levels full code DVT PPX mechanical
[2022-02-12 09:21] LABS: Chol/HDL Ratio 5.58 Ratio; LDL Cholesterol,Calculated 270.2 mg/dL (0.0-131.0)
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
--- NOTE | 2022-02-12 10:33 | P.CNNES ---
History of Present Illness Consult date: 02/12/22 Requesting physician: Mckinley Yadav Reason for Consult: cva History of Present Illness: This is a 31-year-old woman who is 36 weeks gestation who presents to the emergency department on 02/11/2022 for right-sided weakness/facial weakness wiht numbness and slurred speech. Last known normal state was around 11 AM on then she woke up at 2 PM yesterday and she noticed that her right- sided the was weak and felt numb as right facial weakness and numbness with slurred speech. She also noticed bilateral facial twitching. She denies any headache or history of migraine. She denies any jerking of extremities, tongue bite or soreness of tongue, urinary or bowel incontinence. She denies loss of consciousness. She denies history of stroke. Denies being on any blood thinners or antiplatelets. She denies history of seizures. She stated her weakness and numbness are improving excepts some pain right groin region. She stated her facial twitching lasted for hours yesterday and now resolved. She had some right facial twitching about 4 days ago that resolved and did not make much out of it. Later she stated she has some blurry vision of both eyes yesterday when she had her weakness but has resolved. She does smoke close to 1/2 pack daily or less for years. Denies alcohol use or illicit drug use. Of note she denies any complication during this . Of note, she stated this is her 6th and had one miscarriage at early age and miscarriage was in first trimester. Otherwise rest of her pregnancies are normal. As a result a stroke code was activated in the ED. Initial blood pressure was 110/72 and she was never hypertensive. No fevers. Initial loss serum glucose is 86. 18 ALTs within normal limits, BUN and creatinine is a not elevated, sodium is slightly minimally low as well as potassium 3.2 is minimally low. She had an initial CT of the head which is reported as negative unenhanced head CT scan. No change. She also had MRI of the brain is reported as normal. I personally reviewed that MRI and I agree with the report. Also had MRA of the head and neck which is reported as negative. I personally reviewed that a MRA of the head and neck and I don't see any appreciable thrombus. Per the ED team her initial NIH stroke scale was a 4 and it improved down to 1. Patient did not receive IV TPA since patient is outside the window and the risk outweighed the benefit and she presented 5 hours outside the window. The ED team spoke with Dr. Rdz (stroke attending) regarding the case and stroke attending recommended medical management. Was not felt there is no suspicion for preeclampsia. Her EMERGENCY RESPONSE COORDINATOR physician (Dr. Mosqueda) was contacted and agreed with use of ASA per ED tem Some of the other workup during this hospital visit consisted of Is cloudy, leukocyte esterase was large, urine white blood cells 12 and urine bacteria is moderate which seems possible suggestive for urinary tract infection. EKG is reported as sinus rhythm. Normal EKG. Review of Systems Review of system: The 12 point system was reviewed and apparent positive and negative per HPI. Past Medical History Past Medical History: Cancer Additional Past Medical History / Comment(s): SKIN. 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 Past Anesthesia/Blood Transfusion Reactions: No Reported Reaction Past Psychological History: Bipolar, Depression Smoking Status: Current every day smoker - Past Family History Mother Family Medical History: Thyroid Disorder Additional Family Medical History / Comment(s): denies any family history of blood disorders and thrombosis Medications and Allergies Home Medications Medication Instructions Recorded Confirmed Type No Known Home Medications 02/11/22 02/11/22 History Allergies Allergy/AdvReac Type Severity Reaction Status Date / Time No Known Allergies Allergy Verified 02/11/22 19:32 Physical Examination - Vital Signs Vital Signs: Vital Signs Temp Pulse Pulse Resp BP BP Pulse Ox 02/12/22 08:18 98 F 82 20 101/61 99 02/12/22 03:48 97.7 F 91 15 91/55 100 02/12/22 01:26 119 H 02/12/22 00:00 97.9 F 99 16 96/57 97 02/11/22 22:54 119 H 02/11/22 21:35 97.7 F 119 H 17 147/60 100 02/11/22 20:29 68 16 145/60 98 02/11/22 20:10 100 20 119/62 97 02/11/22 17:43 68 16 126/78 99 02/11/22 16:57 96 20 127/75 99 02/11/22 16:38 98 F 86 16 118/79 99 02/11/22 16:35 96 20 118/79 99 02/11/22 16:15 98.0 F 100 18 110/72 98 Intake and Output 02/11/22 02/12/22 02/12/22 22:59 06:59 14:59 Intake Total 2370 120 Balance 2370 120 Intake: Intake, IV Titration 750 Amount Sodium Chloride 0.9% 1, 750 000 ml @ 75 mls/hr IV . [id number] [facility] Rx#:[id number] Oral 1620 120 Other: Voiding Method Toilet Toilet # Voids 2 2 Weight 81.647 kg GENERAL: The patient is lying in bed and is not in acute distress. CHEST: The heart rate is regular rate rhythm. No murmurs to auscultation. No carotid bruit bilaterally. LUNG: Clear to auscultation bilaterally no wheezing noted throughout. Not labored breathing. ABDOMEN/GI: Bowel sounds present in all 4 quadrants. No tenderness to palpation throughout. NEUROLOGICAL: Higher mental function: The patient is awake, alert, oriented to self, place and time. Patient is following commands. No aphasia and no neglect. Cranial nerves: The pupils are round, equal and reactive to light and accommodation. Visual burton are full to confrontation throughout. I attempted to check her fundoscopic examination but had some difficulty with it. Extraocular movement is intact no nystagmus is noted. Facial sensation is normal to touch throughout. The facial strength is normal throughout. Hearing is normal bilaterally to hand rub. Tongue is midline and moved [id number] without any difficulty. No dysarthria is noted. Shoulder shrug is normal bilaterally. Motor: The strength is limited in the lower because some groin pain but is able to lift above gravity without focality. Otherwise 5 over 5 throughout. Normal tone and bulk. Cerebellum: Normal finger to nose heel to levi bilaterally. Sensation: Sensation is normal to touch throughout. Reflexes (right/left): 1+ throughout. Plantars are downgoing bilaterally. Results - Laboratory Findings CBC and BMP: 02/11/22 16:56 02/11/22 16:56 Abnormal Lab Findings: Abnormal Labs 02/11/22 02/11/22 02/11/22 16:56 16:56 17:16 WBC 12.5 H Hgb 10.1 L Hct 31.3 L MCV 78.1 L Neutrophils # 8.7 H Sodium 135 L Potassium 3.2 L BUN 3 L Creatinine 0.41 L Alkaline Phosphatase 230 H Urine Appearance Cloudy H Urine Blood Trace H Ur Leukocyte Esterase Large H Urine WBC 12 H Ur Squamous Epith Cells 6 H Urine Bacteria Moderate H Urine Mucus Rare H Assessment and Plan Assessment: Acute transient right-sided weakness/facial with numbness with slurred speech but reported facial twitching of both sides of face. Unknown exact etiology but possible Maxx's Paralysis (due to facial twitching from seizures leading to weakness and numbness) vs Transient ischemic attack (especially she is which there is increase hypercoagubale state). She denies any headache which I feel less likely complicated migraine (but cannot rule out acephalic complicated migraine). MRI Brain and MRA head and neck are negative. Likely underlying acute UTI 36 weeks gestation Tobacco use Plan: I ordered STAT EEG to rule out any underlying epileptiform discharges or seizures. I ordered 2-D echo. Lipid panel is ordered pending Recommend aspirin 81 mg daily and Lipitor 10 mg daily for secondary stroke prophylaxis if safe to use. Ordered TSH with free T4, vitamin B12, folate, MMA, homocystein, magnesium, phosphorus. Ordered GENET level. Continue neuro checks On cardiac monitoring Consulted ophthalmology team for her episode of blurry vision for better assessment. Urine cultures as ordered and is pending PT OT and SPREADER are consulted OB team is consulted Patient was counseled on tobacco cessation. We'll defer the rest of the medical management to the primary team For DVT prophylaxis and can use either subcu heparin 5000 units every 8 hours if safe to do that and if not can use SCDs. Recommended the patient to follow-up with a neurologist as an outpatient within 1-2 weeks. Continue to monitor patient for at least an additional day. If has any further episodes then recommend to transfer to ICU for closer monitoring. If patient has any further weakness/numbness then recommend activation of stroke pager. Also, if she has any further symptoms recommend transfer to a tertiary Center for escalation of care and closer monitoring. The plan was discussed with the patient as well as the primary team. Thank you for the consultation. UPDATE: STAT EEG: Is normal. I spoke with the patient and discussed regarding starting antiepileptic drug (Keppra) for her episodes of facial twitching which I cannot rule out seizure. But stated wants to hold off for now. Will try to obtain 2.5 hour EEG this Monday if remains stable. Total of 35 minutes spent with care. Time with Patient: Greater than 30
[2022-02-12 11:27] LABS: Appearance,Urine Clear (Clear); Bacteria,Urine Few /hpf; Bilirubin,Urine Negative (Negative); Blood,Urine Negative (Negative); Color,Urine Colorless; Glucose,Urine (UA) Negative (Negative); Ketones,Urine Negative (Negative); Leukocyte Esterase,Urine Moderate (Negative); Nitrite,Urine Negative (Negative); Protein,Urine Negative (Negative); RBC,Urine <1 /hpf (0-5); Specific Gravity,Urine 1.002 (1.001-1.035); Squamous Epithelial Cell,Urine 4 /hpf (0-4); Urobilinogen,Urine <2.0 mg/dL (<2.0); WBC,Urine 2 /hpf (0-5)
--- NOTE | 2022-02-12 11:56 | P.PN ---
Subjective Progress Note Date: 02/12/22 Principal diagnosis: neuro deficits Hospital Course: 31-year-old female, currently 36 weeks with no significant past medical history presented with strokelike symptoms yesterday. She claims that this is her fourth , her other 3 pregnancies have been uneventful. Upon presentation, her NIH SS was 4, imaging was negative, symptoms improved shortly after. Patient being evaluated by both neurology and FOREIGN STUDENT ADVISER. Subjective: Patient seen and examined at bedside. No acute events overnight. She claims that her symptoms have completely resolved. She denies any chest pain, shortness of breath, abdominal pain, urinary or bowel complaints. Pertinent positives and negatives as discussed above, a complete review of systems was performed and all other systems are negative. Vitals Signs Reviewed. General: nontoxic, no distress, appears at stated age Derm: warm, dry Head: atraumatic, normocephalic, symmetric Eyes: EOMI, no lid lag, anicteric sclera Mouth: no lip lesion, mucus membranes moist Cardiovascular: S1S2 reg, no murmur Lungs: CTA bilateral, no rhonchi, no rales , no accessory muscle use Abdominal: soft, nontender to palpation, no guarding, no appreciable organomegaly, gravid abdomen Ext: no gross muscle atrophy, no edema, no contractures Neuro: CN II-XI grossly intact, no focal neuro deficits Psych: Alert, oriented, appropriate affect Assessment and Plan: Transient neurological deficits -Possible TIA -Complex migraine, seizure on the differential -Stat EEG per neurology -Echo pending -Started on aspirin and Lipitor -Labs pending Bacteriuria in - IV ceftriaxone 36 weeks -OB following -Patient will require NST daily -will need follow-up closely next week in the clinic Microcytic anemia - On supplements Hypokalemia - replete and monitor Full code Subcu heparin for DVT prophylaxis Anticipated discharge: Likely home tomorrow Objective - Vital Signs Vital signs: Vital Signs Temp 98 F 02/12/22 08:18 Pulse 82 02/12/22 08:18 Resp 20 02/12/22 08:18 BP 101/61 02/12/22 08:18 Pulse Ox 99 02/12/22 08:18 FiO2 Intake & Output 02/11/22 02/12/22 02/12/22 18:59 06:59 18:59 Intake Total 2370 120 Balance 2370 120 Weight 81.647 kg 81.647 kg Intake: Intake, IV Titration 750 Amount Sodium Chloride 0.9% 1, 750 000 ml @ 75 mls/hr IV . [id number] [facility] Rx#:[id number] Oral 1620 120 Other: Voiding Method Toilet # Voids 2 - Labs CBC & Chem 7: 02/11/22 16:56 02/11/22 16:56 Labs: Abnormal Lab Results - Last 24 Hours (Table) 02/11/22 02/11/22 02/11/22 Range/Units 16:56 16:56 16:56 WBC 12.5 H (3.8-10.6) k/uL Hgb 10.1 L (11.4-16.0) gm/dL Hct 31.3 L (34.0-46.0) % MCV 78.1 L (80.0-100.0) fL Neutrophils # 8.7 H (1.3-7.7) k/uL Sodium 135 L (137-145) mmol/L Potassium 3.2 L (3.5-5.1) mmol/L BUN 3 L (7-17) mg/dL Creatinine 0.41 L (0.52-1.04) mg/dL Alkaline Phosphatase 230 H (38-126) U/L Triglycerides 356.00 H (0.00-149.00) mg/dL Cholesterol 416.00 H (0.00-200.00) mg/dL LDL Cholesterol, Calc 270.2 H (0.0-131.0) mg/dL VLDL Cholesterol, Calc 71.20 H (5.00-40.00) mg/dL HDL Cholesterol 74.60 H (40.00-60.00) mg/dL Urine Appearance (Clear) Urine Blood (Negative) Ur Leukocyte Esterase (Negative) Urine WBC (0-5) /hpf Ur Squamous Epith Cells (0-4) /hpf Urine Bacteria (None) /hpf Urine Mucus (None) /hpf 02/11/22 02/12/22 Range/Units 17:16 08:40 WBC (3.8-10.6) k/uL Hgb (11.4-16.0) gm/dL Hct (34.0-46.0) % MCV (80.0-100.0) fL Neutrophils # (1.3-7.7) k/uL Sodium (137-145) mmol/L Potassium (3.5-5.1) mmol/L BUN (7-17) mg/dL Creatinine (0.52-1.04) mg/dL Alkaline Phosphatase (38-126) U/L Triglycerides (0.00-149.00) mg/dL Cholesterol (0.00-200.00) mg/dL LDL Cholesterol, Calc (0.0-131.0) mg/dL VLDL Cholesterol, Calc (5.00-40.00) mg/dL HDL Cholesterol (40.00-60.00) mg/dL Urine Appearance Cloudy H (Clear) Urine Blood Trace H (Negative) Ur Leukocyte Esterase Large H Moderate H (Negative) Urine WBC 12 H (0-5) /hpf Ur Squamous Epith Cells 6 H (0-4) /hpf Urine Bacteria Moderate H Few H (None) /hpf Urine Mucus Rare H (None) /hpf Microbiology - Last 24 Hours (Table) 02/11/22 17:16 Urine Culture - Preliminary Urine,Voided
[2022-02-12] MEDS ORDERED: ATORVASTATIN 10 MG TAB PO SCH (12:00)
[2022-02-12 14:29] LABS: Magnesium 1.6 mg/dL (1.6-2.3); Phosphorus 3.2 mg/dL (2.5-4.5)
[2022-02-12] MEDS: ASPIRIN 81 MG PO SCH (14:43)
[2022-02-12] MEDS: TROPICAMIDE 1% OPHTH DROPS 2 ML BTL BOTH EYES SCH ×4 (14:49→16:56)
[2022-02-12] MEDS: HEPARIN SODIUM,PORCINE/PF 5,000 UNIT/0.5 ML SYRINGE SQ SCH (15:59)
[2022-02-12] MEDS: MAGNESIUM SULFATE-D5W PMX 1 GM in DEXTROSE/WATER 1 100ML.BAG IVPB SCH ×4 (17:27→22:57)
[2022-02-12] MEDS: FOLIC ACID 1 MG TAB PO SCH (19:15)
[2022-02-13] MEDS: HEPARIN SODIUM,PORCINE/PF 5,000 UNIT/0.5 ML SYRINGE SQ SCH ×4 (01:04→19:54)
[2022-02-13] MEDS: SODIUM CHLORIDE 0.9% 1,000 ML IV SCH ×2 (04:37→18:21)
[2022-02-13] MEDS: ASPIRIN 81 MG PO SCH (08:36)
[2022-02-13] MEDS: FOLIC ACID 1 MG TAB PO SCH (08:37)
[2022-02-13 09:40] LABS: African American GFR (CKD) >90 (>60 ml/min/1.73 sqM); Anion Gap 6 mmol/L; Blood Urea Nitrogen 3 mg/dL (7-17); Calcium 7.9 mg/dL (8.4-10.2); Carbon Dioxide 23 mmol/L (22-30); Chloride 105 mmol/L (98-107); Glucose 117 mg/dL (74-99); Magnesium 1.6 mg/dL (1.6-2.3); Non-African American GFR(CKD) >90 (>60 ml/min/1.73 sqM); Potassium 3.6 mmol/L (3.5-5.1); Sodium 134 mmol/L (137-145)
--- NOTE | 2022-02-13 09:59 | P.PNOBGAP ---
Subjective - Subjective Principal diagnosis: at 36 weeks 2 days admitted for stroke symptoms Interval history: Patient seen at bedside today. She has had no further facial twitching or vision changes. Neurology believes she could have had a TIA but more likely a seizure. She did have some spikes and her limited EEG. She will have a prolonged EEG tomorrow. If the EEG show signs of seizure we did discuss patient going on Keppra. I discussed this with the patient and she is willing to take it. At this time I'll give the patient steroids, Celestone, 24 hours apart and discussed the case with my [facility] specialist to see when the best time for delivery would be. NSTs have been reactive. Will order an ultrasound for weight and fluid. Antepartum ROS: Reports movement normal, Denies loss of fluid, Denies vaginal bleeding, Denies contractions Objective - Vital Signs Vital Signs: Vital Signs Temp Pulse Resp BP Pulse Ox 02/13/22 08:00 98.3 F 102 H 18 96/54 99 02/13/22 04:00 98.0 F 83 15 106/65 96 02/13/22 00:00 98.3 F 98 15 93/54 100 02/12/22 20:00 98.0 F 109 H 19 115/55 100 02/12/22 16:00 98.3 F 109 H 18 99/58 98 02/12/22 12:16 105 H 20 117/57 98 Intake and Output 02/12/22 02/13/22 02/13/22 22:59 06:59 14:59 Intake Total 1180 420 Balance 1180 420 Intake: Intake, IV Titration 100 Amount Magnesium Sulfate-D5w Pmx 100 1 gm In Dextrose/Water 1 100ml.bag @ 100 mls/hr IVPB Q1H [facility] Rx#: [id number] Oral 1080 420 Other: Voiding Method Toilet Toilet # Voids 1 3 - Exam FHR: class 1 Abdomen: Present: normal appearance, soft. Absent: tenderness Uterus: Present: normal. Absent: tenderness - Labs Labs: Abnormal Labs 02/11/22 02/11/22 02/11/22 16:56 16:56 16:56 WBC 12.5 H Hgb 10.1 L Hct 31.3 L MCV 78.1 L Neutrophils # 8.7 H Sodium 135 L Potassium 3.2 L BUN 3 L Creatinine 0.41 L Glucose Calcium Alkaline Phosphatase 230 H Triglycerides 356.00 H Cholesterol 416.00 H LDL Cholesterol, Calc 270.2 H VLDL Cholesterol, Calc 71.20 H HDL Cholesterol 74.60 H Urine Appearance Urine Blood Ur Leukocyte Esterase Urine WBC Ur Squamous Epith Cells Urine Bacteria Urine Mucus 02/11/22 02/12/22 02/13/22 17:16 08:40 09:04 WBC Hgb Hct MCV Neutrophils # Sodium 134 L Potassium BUN 3 L Creatinine 0.37 L Glucose 117 H Calcium 7.9 L Alkaline Phosphatase Triglycerides Cholesterol LDL Cholesterol, Calc VLDL Cholesterol, Calc HDL Cholesterol Urine Appearance Cloudy H Urine Blood Trace H Ur Leukocyte Esterase Large H Moderate H Urine WBC 12 H Ur Squamous Epith Cells 6 H Urine Bacteria Moderate H Few H Urine Mucus Rare H Assessment and Plan (1) 36 weeks gestation of Current Visit: Yes Status: Acute Code(s): Z3A.36 - 36 WEEKS GESTATION OF SNOMED Code(s): 03326142 (2) Neurological deficit, transient Current Visit: Yes Status: Acute Code(s): R29.818 - OTHER SYMPTOMS AND SIGNS INVOLVING THE NERVOUS SYSTEM SNOMED Code(s): 647235186 Plan: 1. celestone 12mg IM now and again tomorrow 2. US for EFW and fluid
[2022-02-13] MEDS: BETAMET ACET-BETAMETH SOD PHOS 6 MG/ML MDV IM SCH (10:38)
--- NOTE | 2022-02-13 11:11 | P.PN ---
Subjective Progress Note Date: 02/13/22 Principal diagnosis: neuro deficits Hospital Course: 31-year-old female, currently 36 weeks with no significant past medical history presented with strokelike symptoms. She claims that this is her fourth , her other 3 pregnancies have been uneventful. Upon presentation, her NIH SS was 4, imaging was negative, symptoms improved shortly after. Patient being evaluated by both neurology and REPAIRER RESISTANCE WELDING MACHINES. Based on the symptomatology, patient could've had a seizure. Initial limited EEG was normal. Prolonged EEG pending Monday. Patient also has asymptomatic bacteriuria, treated with ceftriaxone. She also has hypomagnesemia, being repleted. Subjective: Patient seen and examined at bedside. No acute events overnight. She denies any neurological complaints. She denies any chest pain, shortness of breath, abdominal pain, urinary or bowel complaints. Pertinent positives and negatives as discussed above, a complete review of systems was performed and all other systems are negative. Vitals Signs Reviewed. General: nontoxic, no distress, appears at stated age Derm: warm, dry Head: atraumatic, normocephalic, symmetric Eyes: EOMI, no lid lag, anicteric sclera Mouth: no lip lesion, mucus membranes moist Cardiovascular: S1S2 reg, no murmur Lungs: CTA bilateral, no rhonchi, no rales , no accessory muscle use Abdominal: soft, nontender to palpation, no guarding, no appreciable organomegaly, gravid abdomen Ext: no gross muscle atrophy, no edema, no contractures Neuro: CN II-XI grossly intact, no focal neuro deficits Psych: Alert, oriented, appropriate affect Assessment and Plan: Transient neurological deficits Hypomagnesemia -Possible TIA -Complex migraine, seizure on the differential -Limited EEG normal, prolonged EEG Monday -Echo pending -Patient on baby aspirin, Lipitor contract indicating -Electrolytes replete and monitor -In case of an emergency, can utilize Keppra. Ativan only if absolutely needed. Bacteriuria in - IV ceftriaxone 36 weeks -OB following -Patient will require NST daily Microcytic anemia - On supplements Hypokalemia -Resolved Full code Subcu heparin for DVT prophylaxis Anticipated discharge: Possible home discharge tomorrow Objective - Vital Signs Vital signs: Vital Signs Temp 98.3 F 02/13/22 08:00 Pulse 102 H 02/13/22 08:00 Resp 18 02/13/22 08:00 BP 96/54 02/13/22 08:00 Pulse Ox 99 02/13/22 08:00 FiO2 Intake & Output 02/12/22 02/13/22 02/13/22 18:59 06:59 18:59 Intake Total 120 1180 420 Balance 120 1180 420 Intake: Intake, IV Titration 100 Amount Magnesium Sulfate-D5w Pmx 100 1 gm In Dextrose/Water 1 100ml.bag @ 100 mls/hr IVPB Q1H [facility] Rx#: [id number] Oral 120 1080 420 Other: Voiding Method Toilet # Voids 1 3 - Labs CBC & Chem 7: 02/11/22 16:56 02/13/22 09:04 Labs: Abnormal Lab Results - Last 24 Hours (Table) 02/12/22 02/13/22 Range/Units 08:40 09:04 Sodium 134 L (137-145) mmol/L BUN 3 L (7-17) mg/dL Creatinine 0.37 L (0.52-1.04) mg/dL Glucose 117 H (74-99) mg/dL Calcium 7.9 L (8.4-10.2) mg/dL Ur Leukocyte Esterase Moderate H (Negative) Urine Bacteria Few H (None) /hpf Microbiology - Last 24 Hours (Table) 02/11/22 17:16 Urine Culture - Final Urine,Voided
--- NOTE | 2022-02-13 11:42 | P.PN ---
Subjective Progress Note Date: 02/13/22 The patient is seen at bedside and she denies any further twitching of her face or any further focal weakness or numbness. She denies of any headache. Denies of any further blurry vision. She denies of any neurological issues. Objective - Vital Signs Vital signs: Vital Signs Temp 98.3 F 02/13/22 08:00 Pulse 102 H 02/13/22 08:00 Resp 18 02/13/22 08:00 BP 96/54 02/13/22 08:00 Pulse Ox 99 02/13/22 08:00 FiO2 Intake & Output 02/12/22 02/13/22 02/13/22 18:59 06:59 18:59 Intake Total 120 1180 420 Balance 120 1180 420 Intake: Intake, IV Titration 100 Amount Magnesium Sulfate-D5w Pmx 100 1 gm In Dextrose/Water 1 100ml.bag @ 100 mls/hr IVPB Q1H [facility] Rx#: [id number] Oral 120 1080 420 Other: Voiding Method Toilet # Voids 1 3 - Exam GENERAL: The patient is lying in bed and is not in acute distress. NEUROLOGICAL: Higher mental function: The patient is awake, alert, oriented to self, place and time. Patient is following commands. No aphasia and no neglect. Cranial nerves: The pupils are round, equal and reactive to light and accommodation. Visual burton are full to confrontation throughout. Extraocular movement is intact no nystagmus is noted. Facial sensation is ashley l to touch throughout. The facial strength is normal throughout. Hearing is normal bilaterally to hand rub. Tongue is midline and moved [id number] without any difficulty. No dysarthria is noted. Shoulder shrug is normal bilaterally. Motor: The strength is limited in the lower because some groin pain but is able to lift above gravity without focality. Otherwise 5 over 5 throughout. Normal tone and bulk. Cerebellum: Normal finger to nose heel to levi bilaterally. Sensation: Sensation is normal to touch throughout. Reflexes (right/left): 1+ throughout. Plantars are downgoing bilaterally. SOME OF THE WORK-UP DURING THIS HOSPITAL VISIT CONSISTED OF: Lipid panel: T, cholestrol 416, LDL 270. 74 Phosphorus is 3.2. Magnesium is 1.6 and repeat is 1.6. TSH: 0.969 Folate: 8.60 Urine analysis: cloudy, trace, leuk esteraas is large, urine bacteria is moderate. Urine cultre is skin/gential calos. CT of the head which is reported as negative unenhanced head CT scan. No change. MRI of the brain is reported as normal. I personally reviewed that MRI and I agree with the report. MRA of the head and neck which is reported as negative. I personally reviewed that a MRA of the head and neck and I don't see any appreciable thrombus. Preliminary report for STAT eeg ON 02/12/2022: Normal. There is no focal slowing, epileptiform discharges or seizure on the EEG. - Labs CBC & Chem 7: 02/11/22 16:56 02/13/22 09:04 Labs: Abnormal Lab Results - Last 24 Hours (Table) 02/12/22 02/13/22 Range/Units 08:40 09:04 Sodium 134 L (137-145) mmol/L BUN 3 L (7-17) mg/dL Creatinine 0.37 L (0.52-1.04) mg/dL Glucose 117 H (74-99) mg/dL Calcium 7.9 L (8.4-10.2) mg/dL Ur Leukocyte Esterase Moderate H (Negative) Urine Bacteria Few H (None) /hpf Microbiology - Last 24 Hours (Table) 02/11/22 17:16 Urine Culture - Final Urine,Voided Assessment and Plan Assessment: Acute transient right-sided weakness/facial with numbness with slurred speech but reported facial twitching of both sides of face. Unknown exact etiology but possible Maxx's Paralysis (due to facial twitching from seizures leading to weakness and numbness) vs Transient ischemic attack (especially she is which there is increase hypercoagubale state). She denies any headache which I feel less likely complicated migraine (but cannot rule out acephalic complicated migraine). MRI Brain and MRA head and neck are negative. 36 weeks gestation Dyslipidemia Tobacco use Plan: Recommend aspirin 81 mg daily for secondary stroke prophylxis. Was notified that statin is not safe during . Will defer dyslipidemia management to primary team. Pending 2-D echo. Preliminary report for STAT eeg ON 02/12/2022: Normal. There is no focal slowing, epileptiform discharges or seizure on the EEG. Ordered 2.5 hour EEG which will likely be done on 02/14/2022 to rule out any underlying discharges or seizures. If patient has any further facial twitching or seizure-like activity recommend starting on Keppra 500mg 1 tab bid. Pending vitamin B12, folate, MMA, homocystein, GENET level. Continue neuro checks On cardiac monitoring Consulted ophthalmology team for her episode of blurry vision for better assessment. Urine cultures as ordered and is pending PT OT and CHICKEN DRESSER are consulted Continue Folic acid 4mg daily. OB team is on board. They will give patient steroids. Primary team will patient additional Magesium (which helps with increases threshold for seizures). Yesterday the patient received 4 mg of magnesium IV. Recommend to continue to assess the level of magnesium to avoid any hyper toxicity effect. Patient was counseled on tobacco cessation. We'll defer the rest of the medical management to the primary team For DVT prophylaxis and can use either subcu heparin 5000 units every 8 hours if safe to do that and if not can use SCDs. Recommended the patient to follow-up with a neurologist as an outpatient within 1-2 weeks. If has any further episodes then recommend to transfer to ICU for closer monitoring. If patient has any further weakness/numbness then recommend activation of stroke pager. Also, if she has any further symptoms recommend transfer to a tertiary Center for escalation of care and closer monitoring. The plan was discussed with the patient, Dr. Mosqueda (ARMATURE STRAIGHTENER) as well as the primary team. Dr. Junior will start neurology service tomorrow A.M. Time with Patient: Less than 30
[2022-02-13] MEDS: MAGNESIUM SULFATE-D5W PMX 1 GM in DEXTROSE/WATER 1 100ML.BAG IVPB SCH ×4 (12:39→16:50)
--- NOTE | 2022-02-13 14:12 | US ---
EXAMINATION TYPE: US OB >= 14 wk fetus DATE OF EXAM: 02/13/2022 COMPARISON: CLINICAL HISTORY: EFW and fluid level Patient states she had a seizure. TECHNIQUE: Transabdominal (TA) GESTATIONAL AGE / DATING Physician Established: (36 weeks/2 days) EDC: 03/11/2022 Dates by Current Scan: (35 weeks/4 days) EDC: 03/16/2022 SURVEY IUP: Single PLACENTA: Fundal anterior, heterogenous with small placental lakes PREVIA: No Previa EMILY: 11.6 cm Normal CERVICAL LENGTH (transabdominal: norm > 3.0cm): 3.6 cm BIOMETRY PRESENTATION: Vertex BPD: 8.7 cm 35 weeks / 1 days HC: 31.6 cm 35 weeks / 4 days AC: 31.8 cm 35 weeks / 6 days FL: 6.9 cm 35 weeks / 2 days ESTIMATED WEIGHT IN GRAMS: 2689 grams ESTIMATED WEIGHT IN LBS/OZ: 5 lbs. 15 oz. WEIGHT PERCENTAGE BASED ON ESTABLISHED DATES: 31% HC/AC: 1.0 Normal FL/AC: 22% Normal HEART RATE: 146 bpm RHYTHM: Normal Placenta appears heterogenous with small placental lakes. IMPRESSION: 1. Single intrauterine gestation estimated at 35 weeks 4 days gestation EDC calculated at 03/16/2022. Correlate this with the physician established EDC of 03/11/2022. 2. Cardiac activity measures 146 bpm. 3. Estimated weight based on the current measurements is 2689 g.
[2022-02-13 14:52] LABS: Vitamin B12 <150.0 pg/mL (200.0-944.0)
[2022-02-14] MEDS: SODIUM CHLORIDE 0.9% 1,000 ML IV SCH ×2 (04:43→19:23)
--- NOTE | 2022-02-14 08:28 | EEG ---
ELECTROENCEPHALOGRAM REPORT CLINICAL HISTORY: This is a 31-year-old woman, who reported that she had an episode of facial twitching. The video EEG is obtained to evaluate for seizure and epileptiform activity. RELEVANT MEDICATION: The patient is not on any antiepileptic drugs. EEG TYPE: A routine 21-channel EEG is performed with video using the 10/20 electrode placement system. DESCRIPTION: Wakefulness, drowsiness, and stage II sleep architecture seen. So, during awake state, the posterior-dominant rhythm consists of yej-ae-[id number] voltage of 10 Hz activity that is well modulated and well sustained. During stage II sleep architecture, there are K complex and sleep spindles. There is no focal slowing. INTERICTAL AND ICTAL: None. ACTIVATION PROCEDURE: Photic stimulation did not evoke posterior driving response. There is no abnormality during photic stimulation. Hyperventilation is not performed. CLINICAL INTERPRETATION: This is a normal routine EEG. There is no focal slowing, epileptiform discharge, or seizure on the EEG. Clinical correlation is recommended. MMBETO / ANGIN: [id number] /
--- NOTE | 2022-02-14 09:42 | P.PN ---
Subjective Progress Note Date: 02/14/22 Principal diagnosis: neuro deficits Hospital Course: 31-year-old female, currently 36 weeks with no significant past medical history presented with strokelike symptoms. She claims that this is her fourth , her other 3 pregnancies have been uneventful. Upon presentation, her NIH SS was 4, imaging was negative, symptoms improved shortly after. Patient being evaluated by both neurology and CANCER RESEARCHER. Based on the symptomatology, patient could've had a seizure. Initial limited EEG was normal. Prolonged EEG today. Patient also has asymptomatic bacteriuria, treated with ceftriaxone. She also has hypomagnesemia, being repleted. Subjective: Patient seen and examined at bedside. No acute events overnight. She denies any neurological complaints. She denies any chest pain, shortness of breath, abdominal pain, urinary or bowel complaints. Pertinent positives and negatives as discussed above, a complete review of systems was performed and all other systems are negative. Vitals Signs Reviewed. General: nontoxic, no distress, appears at stated age Derm: warm, dry Head: atraumatic, normocephalic, symmetric Eyes: EOMI, no lid lag, anicteric sclera Mouth: no lip lesion, mucus membranes moist Cardiovascular: S1S2 reg, no murmur Lungs: CTA bilateral, no rhonchi, no rales , no accessory muscle use Abdominal: soft, nontender to palpation, no guarding, no appreciable organomegaly, gravid abdomen Ext: no gross muscle atrophy, no edema, no contractures Neuro: CN II-XI grossly intact, no focal neuro deficits Psych: Alert, oriented, appropriate affect Assessment and Plan: Transient neurological deficits Hypomagnesemia -Possible TIA -Complex migraine, and seizure on the differential -Limited EEG normal, prolonged EEG today -Echo pending -Patient on baby aspirin, Lipitor contraindicated in -Electrolytes replete and monitor -In case of an emergency, can utilize Keppra. Ativan only if absolutely needed. Bacteriuria in - IV ceftriaxone 36 weeks -OB following -Patient will require NST daily Microcytic anemia - On supplements Hypokalemia -Resolved Full code Lovenox for DVT prophylaxis Anticipated discharge: Possible home discharge today or tomorrow Objective - Vital Signs Vital signs: Vital Signs Temp 98.4 F 02/13/22 23:52 Pulse 110 H 02/14/22 04:00 Resp 20 02/14/22 04:00 BP 110/61 02/14/22 04:00 Pulse Ox 97 02/14/22 04:00 FiO2 Intake & Output 02/13/22 02/14/22 02/14/22 18:59 06:59 18:59 Intake Total 1080 Output Total 0 Balance 1080 Intake: Oral 1080 Output: Urine 0 Stool 0 Urine/Stool Mix 0 Emesis 0 Other: Voiding Method Toilet # Voids 0 3 # Bowel Movements 0 - Labs CBC & Chem 7: 02/11/22 16:56 02/13/22 09:04 Labs: Abnormal Lab Results - Last 24 Hours (Table) 02/12/22 02/13/22 Range/Units 14:08 09:04 Sodium 134 L (137-145) mmol/L BUN 3 L (7-17) mg/dL Creatinine 0.37 L (0.52-1.04) mg/dL Glucose 117 H (74-99) mg/dL Calcium 7.9 L (8.4-10.2) mg/dL Vitamin B12 <150.0 L (200.0-944.0) pg/mL
[2022-02-14] MEDS: ASPIRIN 81 MG PO SCH (10:52)
[2022-02-14] MEDS: FOLIC ACID 1 MG TAB PO SCH (11:43)
[2022-02-14] MEDS: BETAMET ACET-BETAMETH SOD PHOS 6 MG/ML MDV IM SCH (11:43)
--- NOTE | 2022-02-14 12:03 | CA ---
Transthoracic Echo Report Name: Denia Villalobos Age: 31 Gender: F : 1990 Exam Date: 02/14/2022 10:21 Exam Location: [place] Echo Ht (in): 65 Wt (lb): 180 Ordering Physician: Jorge Mcgarry MD Attending/Referring Phys: [employer] Leyda Ramirez RDCS Procedure CPT: Indications: stroke Cardiac Hx: Technical Quality: Contrast 1: Total Dose (mL): Contrast 2: Total Dose (mL): MEASUREMENTS (Male / Female) Normal Values 2D ECHO LV Diastolic Diameter PLAX 5.3 cm 4.2 - 5.9 / 3.9 - 5.3 cm LV Systolic Diameter PLAX 3.5 cm IVS Diastolic Thickness 1.2 cm 0.6 - 1.0 / 0.6 - 0.9 cm LVPW Diastolic Thickness 0.9 cm 0.6 - 1.0 / 0.6 - 0.9 cm LV Relative Wall Thickness 0.4 RV Internal Dim ED PLAX 3.0 cm LA Systolic Diameter LX 4.0 cm 3.0 - 4.0 / 2.7 - 3.8 cm LA Volume 77.3 cm??? 18 - 58 / 22 - 52 cm??? M-MODE Aortic Root Diameter MM 2.7 cm MV E Point Septal Separation 0.5 cm AV Cusp Separation MM 2.1 cm DOPPLER MV Area PHT 3.9 cm??? Mitral E Point Velocity 75.4 cm/s Mitral A Point Velocity 66.3 cm/s Mitral E to A Ratio 1.1 MV Deceleration Time 196.0 ms MV E' Velocity 10.4 cm/s Mitral E to MV E' Ratio 7.3 TR Peak Velocity 248.3 cm/s TR Peak Gradient 24.7 mmHg Right Ventricular Systolic Press 29.7 mmHg FINDINGS Left Ventricle Left ventricular ejection fraction is estimated at 50-55%. Mildly increased left ventricular wall thickness. Right Ventricle Normal right ventricular size and function. Right Atrium Normal right atrial size. Left Atrium Mildly increased left atrial diameter. Severely increased left atrial volume. Mildly increased left atrial area. Mitral Valve Structurally normal mitral valve. Aortic Valve Trileaflet aortic valve. Tricuspid Valve Structurally normal tricuspid valve. Mild tricuspid regurgitation. Pulmonic Valve Structurally normal pulmonic valve. Pericardium Normal pericardium. Aorta CONCLUSIONS Normal LV systolic function Enlarged left atrium Mild mitral regurgitation Previewed by: Dr. Armen Ortiz MD (Electronically Signed) Final Date: 14 February 2022 12:02
[2022-02-14] MEDS ORDERED: Magnesium Replacement Protocol 1 EACH MISC MISCELLANE PRN (13:15)
[2022-02-14] MEDS: MAGNESIUM SULFATE-D5W PMX 1 GM in DEXTROSE/WATER 1 100ML.BAG IVPB SCH ×2 (13:33→15:05)
--- NOTE | 2022-02-14 16:28 | P.PN ---
Subjective Progress Note Date: 02/14/22 Patient was seen for a follow-up. Please refer to Dr. Jorge Mcgarry notes for detail. Patient is a 31-year-old female who is 36 weeks gestation, who presented because of right-sided weakness, numbness including face, visual disturbance and right- sided facial twitching. Patient denied headache. Patient states the symptoms originally started on waking up from deep sleep at 11 AM and the symptoms resolved by 6 PM. her symptoms consisted of facial twitching, lost motor control of right side of the face, hand and spasms, couldn't open mouth. Symptoms have completely resolved, and patient wants to go home. It was uncertain if patient has TIA versus seizure versus complicated migraine versus functional. MRI of the brain/MRA negative. Stat EEG was normal. Patient currently on aspirin. Patient had a 2.5 hours EEG performed today, which according to my review was unremarkable. patient denies any history of palpitations. She has 3 other pregnancies, without any event. She is otherwise healthy. She is scheduled for on 03/11/2022. Objective - Vital Signs Vital signs: Vital Signs Temp 97.9 F 02/14/22 15:32 Pulse 107 H 02/14/22 15:32 Resp 18 02/14/22 15:32 BP 131/77 02/14/22 15:32 Pulse Ox 98 02/14/22 15:32 FiO2 Intake & Output 02/13/22 02/14/22 02/14/22 18:59 06:59 18:59 Intake Total 1080 472 Output Total 0 Balance 1080 472 Intake: Oral 1080 472 Output: Urine 0 Stool 0 Urine/Stool Mix 0 Emesis 0 Other: Voiding Method Toilet Toilet # Voids 0 3 # Bowel Movements 0 - Exam patient's mental status, speech and language functions are normal.cranial nerves are normal. No pronator drift. The strength is normal. No sensory loss. No ataxia. - Labs CBC & Chem 7: 02/11/22 16:56 02/13/22 09:04 Labs: Abnormal Lab Results - Last 24 Hours (Table) 02/14/22 Range/Units 10:45 Magnesium 1.5 L (1.6-2.3) mg/dL Assessment and Plan Assessment: * Acute transient right-sided weakness/facial with numbness with slurred speech but reported facial twitching of both sides of face. Unknown exact etiology but possible Maxx's Paralysis (due to facial twitching from seizures leading to weakness and numbness) vs Transient ischemic attack (especially she is which there is increase hypercoagubale state). She denies any headache which I feel less likely complicated migraine (but cannot rule out acephalic complicated migraine). MRI Brain and MRA head and neck are negative. * 36 weeks gestation * Vitamin B12 deficiency * Abnormal 2-D echo with severely dilated left atrium. * Dyslipidemia * Tobacco use Plan: Continue aspirin 81 mg daily for secondary stroke prophylxis. Was notified that statin is not safe during . Will defer dyslipidemia management to primary team. 2-D echo revealed left ventricular ejection fraction 50-55%. Mildly increased left ventricular wall thickness. Mildly increased left atrial area, severely increased left atrial volume. Telemetry monitoring showing sinus tachycardia going up to 150. We will consult cardiology for abnormal 2-D echo, and also rule out arrhythmia. Consider a 30 day event monitor rule out arrythmia. EEG 02/12/2022: Normal. There is no focal slowing, epileptiform discharges or seizure on the EEG. Await official read of 2.5 hour EEG to rule out any underlying discharges or seizures. If patient has any further facial twitching or seizure-like activity recommend starting on Keppra 500mg 1 tab bid. Vitamin B12 <150, folate 8.6, MMA, homocystein 5.81, GENET level. TSH normal 0.969. Start vitamin B12 injection 1000 g IM daily. Discussed with primary physician, cleared for B12 injection. Continue folic acid 4 mg daily. Continue neuro checks On cardiac monitoring Dr. Mcgarry had consulted ophthalmology team for her episode of blurry vision for better assessment. Urine cultures as ordered and is pending OB team is on board. Primary team will patient additional Magesium (which helps with increases threshold for seizures). On 02/12/2022 the patient received 4 mg of magnesium IV. Recommend to continue to assess the level of magnesium to avoid any hyper toxicity effect. Patient was counseled on tobacco cessation. For DVT prophylaxis and can use either subcu heparin 5000 units every 8 hours if safe to do that and if not can use SCDs. Recommended the patient to follow-up with a neurologist as an outpatient within 1-2 weeks. Patient wants to go home tonight. She was recommended that she needs cardiology workup before she can go home. Discussed with primary physician, agreed with management above.
[2022-02-14] MEDS: CYANOCOBALAMIN 1,000 MCG/ML 1 ML VIAL IM SCH (17:21)
[2022-02-14] MEDS: ENOXAPARIN 40 MG/0.4 ML SYRINGE SQ SCH (18:47)
[2022-02-14 19:47] VITALS: TEMP 98
[2022-02-15] MEDS: ENOXAPARIN 40 MG/0.4 ML SYRINGE SQ SCH (08:23)
[2022-02-15] MEDS: ASPIRIN 81 MG PO SCH (08:31)
[2022-02-15] MEDS: FOLIC ACID 1 MG TAB PO SCH (08:31)
[2022-02-15] MEDS: CYANOCOBALAMIN 1,000 MCG/ML 1 ML VIAL IM SCH (08:31)
[2022-02-15 08:41] VITALS: RESP 16
--- NOTE | 2022-02-15 11:18 | P.CRDCN ---
History of Present Illness History of present illness: HISTORY OF PRESENT ILLNESS: This is a 31-year-old female with a past medical history significant for drug abuse, nicotine dependence, bipolar disorder, and depression. Patient does not follow with a fx artist. We have been asked to see the patient in consultation for sinus tachycardia and abnormal echo. Patient examined at the bedside. Patient states she presented to the hospital after she woke up and was having some twitching on the right side of her face. She also reports that she lost motor control of her right hand. She states her symptoms lasted for about 3 hours and then resolved. She has had no further episodes. The patient is currently and is almost 37 weeks. States this is her fourth . She states she has had no previous issues in her previous pregnancies. The patient does report a history of drug abuse and states that she has not used since becoming . * EKG reveals sinus mechanism with no signs of acute ischemia * Laboratory data: WBC 12.5. Hemoglobin 10.1. Platelet count 385. Sodium 134. Potassium 3.6. BUN 3. Creatinine 0.37. TSH 0.969. * Current home cardiac medications include none * Echocardiogram obtained revealing ejection fraction 50-55%, severely increased left atrial volume, mild tricuspid regurgitation REVIEW OF SYSTEMS: At the time of my exam: CONSTITUTIONAL: Denies fever or chills. HEENT: Denies blurred vision, vision changes, or eye pain. Denies hemoptysis CARDIOVASCULAR: Denies chest pain. Denies orthopnea. Denies PND. Denies palpitations RESPIRATORY: Denies shortness of breath. GASTROINTESTINAL: Denies abdominal pain. Denies nausea or vomiting. HEMATOLOGIC: Denies bleeding disorders. GENITOURINARY: Denies any blood in urine. SKIN: Denies pruitis. Denies rash. PHYSICAL EXAM: VITAL SIGNS: Reviewed. GENERAL: Well-developed in no acute distress. HEENT: Head is normocephalic. Pupils are equal, round. Sclerae anicteric. Mucous membranes of the mouth are moist. Neck supple. No JVD or thyromegaly LUNGS: Respirations even and unlabored. Lungs essentially clear to auscultation bilaterally. HEART: Tachycardic. Regular rate and rhythm. S1 and S2 heard. ABDOMEN: Soft. Nondistended. Nontender. Patient . EXTREMITIES: Normal range of motion. No clubbing or cyanosis. Peripheral pulses intact. No lower extremity edema NEUROLOGIC: Awake and alert. Oriented x 3. ASSESSMENT: Right face twitching and right upper extremity weakness, possible TIA versus seizure, neurology following 36 weeks gestation Sinus tachycardia Nicotine dependence Hyperlipidemia, may be secondary to Bipolar disorder Depression History of drug abuse PLAN: Sinus tachycardia and 2D echo findings can be normal finding in TSH checked and within normal limits Recommend smoking cessation Recommend repeat lipid panel post Patient may follow up outpatient after she delivers She may be discharged home from a cardiac standpoint Nurse practitioner note has been reviewed by physician. Signing provider agrees with the documented findings, assessment, and plan of care. Past Medical History Past Medical History: Cancer Additional Past Medical History / Comment(s): SKIN. 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 Past Anesthesia/Blood Transfusion Reactions: No Reported Reaction Past Psychological History: Bipolar, Depression Smoking Status: Current every day smoker - Past Family History Mother Family Medical History: Thyroid Disorder Additional Family Medical History / Comment(s): denies any family history of blood disorders and thrombosis Medications and Allergies Home Medications Medication Instructions Recorded Confirmed Type Aspirin 81 mg PO DAILY #30 tab 02/15/22 Rx Cefdinir 300 mg PO Q12HR #2 cap 02/15/22 Rx Cyanocobalamin [Vitamin B-12] 1,000 mcg PO DAILY #30 tablet 02/15/22 Rx Folic Acid 4 mg PO DAILY #30 tab 02/15/22 Rx Allergies Allergy/AdvReac Type Severity Reaction Status Date / Time No Known Allergies Allergy Verified 02/11/22 19:32 Physical Exam Vitals: Vital Signs Temp Pulse Resp BP Pulse Ox 02/15/22 03:45 113 H 18 103/62 98 02/15/22 01:33 20 02/15/22 00:00 102 H 20 121/71 97 02/14/22 20:00 18 02/14/22 19:46 98 F 107 H 18 135/62 98 02/14/22 15:32 97.9 F 107 H 18 131/77 98 02/14/22 14:00 18 02/14/22 12:00 98.4 F 111 H 18 117/77 97 Intake and Output 02/14/22 02/15/22 02/15/22 22:59 06:59 14:59 Intake Total 118 Balance 118 Intake: Oral 118 Other: Voiding Method Toilet Toilet # Voids 2 Results 02/11/22 16:56 02/13/22 09:04 Current Medications Generic Name Dose Route Start Last Admin Trade Name Freq PRN Reason Stop Dose Admin Aspirin 81 mg 02/12/22 12:00 02/14/22 10:52 Aspirin 81 Mg PO 81 mg DAILY MIHAI Administration Cyanocobalamin 1,000 mcg 02/14/22 16:30 02/14/22 17:21 Cyanocobalamin 1,000 Mcg/Ml 1 Ml Vial IM 02/17/22 16:31 1,000 mcg DAILY MIHAI Administration Enoxaparin Sodium 40 mg 02/14/22 09:00 02/14/22 18:47 Enoxaparin 40 Mg/0.4 Ml Syringe SQ Not Given DAILY MIHAI Folic Acid 4 mg 02/12/22 16:15 02/14/22 11:43 Folic Acid 1 Mg Tab PO 4 mg DAILY MIHAI Administration Sodium Chloride 1,000 mls @ 75 mls/hr 02/12/22 00:30 02/14/22 19:23 Saline 0.9% IV Not Given .[id number] MIHAI Ceftriaxone Sodium 1 gm/ 50 mls @ 100 mls/hr 02/12/22 12:00 02/14/22 10:52 Sodium Chloride IVPB 100 mls/hr Q24HR MIHAI Administration Protocol Miscellaneous Information 1 each 02/14/22 13:15 Magnesium Replacement Protocol 1 Each Misc MISCELLANE DAILY PRN Per Protocol Protocol Intake and Output 02/14/22 02/15/22 02/15/22 22:59 06:59 14:59 Intake Total 118 Balance 118 Intake: Oral 118 Other: Voiding Method Toilet Toilet # Voids 2 02/11/22 16:56 02/13/22 09:04
--- NOTE | 2022-02-15 12:16 | EEG ---
ELECTROENCEPHALOGRAM REPORT ELECTROENCEPHALOGRAM (EEG) REPORT: TECHNIQUE: This is a report from a prolonged inpatient 2.5 hour inpatient video EEG performed using the 10/20 international system. HISTORY: The patient is currently 36 weeks . CURRENT MEDICATIONS: Aspirin, folic acid, and others. FINDINGS: Recording start time: 02/14/2022 at 07:34 a.m. Recording end time: 02/14/2022 at 10:04 a.m. Please note that quality of this recording was significantly limited due to patient positioning, electrodes coming off, and eventually the mid temporal and posterior temporal chains on the right and parietal and occipital chains on the left were uninterpretable. There was also significant artifact secondary to patient movement. BACKGROUND: The background activity consists of 9 to 10 hertz rhythmic waveforms symmetric through both posterior quadrants. ACTIVATION: Hyperventilation: Not performed. Photic stimulation: Mild symmetric driving seen. Sleep: Stages I and II sleep noted. ABNORMALITIES: None. IMPRESSION: Limited study, essentially normal prolonged 2.5 hour video EEG. No definitive clinical or electrographic seizures were reported. No definitive epileptiform activity was present. The patient mentioned on 02/14/2022 at 07:48 that her face feels tight and she mentioned that she had high anxiety. There was no definitive epileptiform activity noted. Muscle artifact was seen at that time. These findings were called to the neurologist taking care of the patient. LIZZIE / ANGIN: [id number] /
--- NOTE | 2022-02-15 13:01 | P.DS ---
Providers Date of admission: 02/11/22 19:01 Expected date of discharge: 02/15/22 Attending physician: Bruno Ye MD Consults: 02/11/22 18:48 Consult Physician Routine Consulting Provider: Jorge Mcgarry Consult Reason/Comments: CVA Do you want consulting provider notified?: Already Contacted Consult Physician Routine Consulting Provider: Elena Mosqueda Consult Reason/Comments: 36 weeks Do you want consulting provider notified?: Already Contacted 02/12/22 10:47 Consult Physician Stat Consulting Provider: Radha Bryant Consult Reason/Comments: visual disturbance. 36 wks gestation Do you want consulting provider notified?: Yes 02/14/22 16:16 Consult Physician Urgent Consulting Provider: Armen Ortiz Consult Reason/Comments: Possible TIA, abn ECHO (dilated LA), tachy on monitor ?arrythmia Do you want consulting provider notified?: Yes Primary care physician: Stated None Hospital Course: Discharge Diagnosis: Transient neurological deficits Hypomagnesemia Possible TIA Bacteriuria and 36 weeks Microcytic anemia Hypokalemia Left atrial enlargement Sinus tachycardia Hospital Course: 31-year-old female, currently 36 weeks with no significant past medical history presented with strokelike symptoms. She claims that this is her fourth , her other 3 pregnancies have been uneventful. Upon presentation, her NIH SS was 4, imaging was negative, symptoms improved shortly after. MRI, MRA head and neck negative. Patient evaluated by both neurology and PERSONNEL INTERVIEWER. Based on the symptomatology, patient could've had a seizure. Initial limited EEG was normal. Prolonged EEG was also normal. Patient was started on aspirin. Statin contraindicated in . Patient found to be hypomagnesemic, was repleted with IV magnesium. Echo showed normal LV systolic function, enlarged left atrium, mild mitral regurgitation. Patient was evaluated by cardiology, no further workup needed at the moment. If The patient continues to remain tachycardic after her delivery, she can see cardiology as an outpatient. Patient also has asymptomatic bacteriuria, treated with ceftriaxone. She will complete her course of oral antibiotics for total of 5 days. She was also found to have dyslipidemia, triglyceride 356, cholesterol 416, LDL 270. Patient will require outpatient follow-up for repeat lipid panel after delivery, possible treatment. She'll follow up with OB in clinic for further management of current . Patient seen and examined at bedside. Vital signs reviewed and stable. General: nontoxic, no distress, appears at stated age Derm: warm, dry Head: atraumatic, normocephalic, symmetric Eyes: EOMI, no lid lag, anicteric sclera Mouth: no lip lesion, mucus membranes moist Cardiovascular: S1S2 reg, no murmur Lungs: CTA bilateral, no rhonchi, no rales , no accessory muscle use Abdominal: soft, nontender to palpation, no guarding, no appreciable organomegaly, gravid abdomen Ext: no gross muscle atrophy, no edema, no contractures Neuro: CN II-XI grossly intact, no focal neuro deficits Psych: Alert, oriented, appropriate affect A total of 45 minutes of time were spent preparing this complex discharge summary. Patient was discharged on 02/15/22 at 11:39. Patient Condition at Discharge: Stable Plan - Discharge Summary Discharge Rx Participant: No New Discharge Prescriptions: New Cefdinir 300 mg PO Q12HR #2 cap Cyanocobalamin [Vitamin B-12] 1,000 mcg PO DAILY #30 tablet Aspirin 81 mg PO DAILY #30 tab Folic Acid 4 mg PO DAILY #30 tab Discharge Medication List Aspirin 81 mg PO DAILY #30 tab 02/15/22 [Rx] Cefdinir 300 mg PO Q12HR #2 cap 02/15/22 [Rx] Cyanocobalamin [Vitamin B-12] 1,000 mcg PO DAILY #30 tablet 02/15/22 [Rx] Folic Acid 4 mg PO DAILY #30 tab 02/15/22 [Rx] Follow up Appointment(s)/Referral(s): None,Stated [Primary Care Provider] - 1-2 days Patient Instructions/Handouts: (DC) Activity/Diet/Wound Care/Special Instructions: Please see your PCP in 1-2 days, and see your OB as soon as possible after discharge. If you continued to have rapid heart rate after delivery, please see cardiology. Discharge Disposition: HOME SELF-CARE
[2022-02-15 13:02] VITALS: BP 117/66; PULSE 123
== END 2022-02-15 13:31 | disposition home or self-care (01) | DRG 832 ==
LOC: EC 16:11 → 3SCARD 19:01
PROVIDERS: ADMIT Student in an Organized Health Care Education/Training Program; ATTEND Student in an Organized Health Care Education/Training Program
PROC: 4A0HXCZ Measurement of Products of Conception, Cardiac Rate, External Approach (ICD-10-PCS; 2022-02-11)
PROC: 4A10X4Z Monitoring of Central Nervous Electrical Activity, External Approach (ICD-10-PCS; principal; 2022-02-15)
DX: O99.353 Diseases of the nervous system complicating pregnancy, third trimester (principal); G45.9 Transient cerebral ischemic attack, unspecified; D50.9 Iron deficiency anemia, unspecified; E53.8 Deficiency of other specified B group vitamins; E78.5 Hyperlipidemia, unspecified; E83.42 Hypomagnesemia; E87.6 Hypokalemia; F17.210 Nicotine dependence, cigarettes, uncomplicated; F31.9 Bipolar disorder, unspecified; J45.909 Unspecified asthma, uncomplicated; Z87.59 Personal history of other complications of pregnancy, childbirth and the puerperium; O23.43 Unspecified infection of urinary tract in pregnancy, third trimester; O99.013 Anemia complicating pregnancy, third trimester; O99.283 Endocrine, nutritional and metabolic diseases complicating pregnancy, third trimester; I34.0 Nonrheumatic mitral (valve) insufficiency; R00.0 Tachycardia, unspecified; O99.333 Smoking (tobacco) complicating pregnancy, third trimester; O99.343 Other mental disorders complicating pregnancy, third trimester; O99.413 Diseases of the circulatory system complicating pregnancy, third trimester; O99.513 Diseases of the respiratory system complicating pregnancy, third trimester; R29.810 Facial weakness; R56.9 Unspecified convulsions; Z3A.36 36 weeks gestation of pregnancy; Z79.82 Long term (current) use of aspirin
CPT/HCPCS: 36415; 70450; 70544; 70547; 70551; 76805; 80048; 80053; 80061; 81001; 82607; 82746; 83090; 83735; 83921; 84100; 84443; 84484; 85025; 85610; 85730; 86038; 87086; 93005; 93306; 95816; 95819; 99291

== ENCOUNTER 2022-02-19 09:22 | Inpatient (IN) | payer OTHER ==
[2022-02-19] MEDS ORDERED: KETOROLAC 15 MG/ML 1 ML VIAL ONE (09:52)
[2022-02-19] MEDS ORDERED: METHYLERGONOVINE 0.2 MG/ML 1 ML AMP ONE (09:52)
[2022-02-19] MEDS ORDERED: ONDANSETRON 4 MG/2 ML VIAL ONE (09:52)
[2022-02-19] MEDS ORDERED: SUCCINYLCHOLINE CHLORIDE 200 MG/10 ML VIAL IV ONE (09:52)
[2022-02-19] MEDS ORDERED: HYDROmorphone (PF) 1 MG/ML ONE (09:52)
[2022-02-19] MEDS ORDERED: PROPOFOL 10 MG/ML 20 ML VIAL IV ONE (09:52)
[2022-02-19] MEDS ORDERED: fentaNYL (PF) 50 MCG/ML 2 ML AMP ONE (09:52)
[2022-02-19] MEDS ORDERED: OXYTOCIN 30 UNITS/500 ML NS BAG IV ONE (09:52)
[2022-02-19] MEDS ORDERED: ONDANSETRON 4 MG/2 ML VIAL IVP PRN (11:02)
[2022-02-19] MEDS ORDERED: SIMETHICONE 80 MG CHEWABLE PO PRN (11:02)
[2022-02-19] MEDS ORDERED: diphenhydrAMINE 25 MG CAP PO PRN (11:02)
[2022-02-19] MEDS ORDERED: ZOLPIDEM 5 MG TAB PO PRN (11:02)
[2022-02-19] MEDS ORDERED: LANOLIN CREAM 5 GM TUBE TOPICAL PRN (11:02)
[2022-02-19] MEDS ORDERED: NALOXONE 0.4 MG/ML 1 ML VIAL IV PRN (11:02)
[2022-02-19] MEDS ORDERED: METOCLOPRAMIDE 5 MG/ML 2 ML VIAL IVP PRN (11:02)
[2022-02-19] MEDS ORDERED: diphenhydrAMINE 50 MG/ML 1 ML VIAL IVP PRN (11:02)
[2022-02-19] MEDS ORDERED: HYDROmorphone PCA 10 MG/50 ML BAG IV PRN (11:07)
[2022-02-19] MEDS ORDERED: OXYTOCIN 30 UNITS/500 ML NS 30 UNIT in SALINE 1 500ML.BAG IV SCH (11:15)
--- NOTE | 2022-02-19 11:22 | P.HPOB ---
History of Present Illness H&P Date: 02/19/22 Chief Complaint: Contractions This patient is a 31-year-old 6 para 3 female estimated date of confinement 03/11/2022 estimated gestational age 37 and one sevenths weeks gestation who is admitted through the emergency department with complaints of painful contractions. On admission patient is thrashing and or control found to be 6 cm dilated. care is per Dr. Mosqueda she's had 2 visits with her and has not been seen since November, however she was admitted last week for stroke type symptoms. Patient that time had a complete evaluation including MRI and cardiac evaluation. It is apparent that she did not have a stroke at that time. is also complicated by methamphetamine use and noncompliance. Patient's had 2 previous sections and was scheduled apparently for repeat next few weeks. Review of Systems Genitourinary: Reports Menstruation: Reports amenorrhea Psychiatric: Reports as per HPI Past Medical History Past Medical History: Cancer Additional Past Medical History / Comment(s): SKIN. 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, Past Anesthesia/Blood Transfusion Reactions: No Reported Reaction Past Psychological History: Bipolar, Depression Smoking Status: Current every day smoker Past Alcohol Use History: Unable to Obtain Past Drug Use History: Methamphetamine - Past Family History Mother Family Medical History: Thyroid Disorder Additional Family Medical History / Comment(s): denies any family history of blood disorders and thrombosis Medications and Allergies Home Medications Medication Instructions Recorded Confirmed Type Aspirin 81 mg PO DAILY #30 tab 02/15/22 Rx Cefdinir 300 mg PO Q12HR #2 cap 02/15/22 Rx Cyanocobalamin [Vitamin B-12] 1,000 mcg PO DAILY #30 tablet 02/15/22 Rx Folic Acid 4 mg PO DAILY #30 tab 02/15/22 Rx Allergies Allergy/AdvReac Type Severity Reaction Status Date / Time No Known Allergies Allergy Verified 02/19/22 11:03 Exam Intake and Output 02/18/22 02/19/22 02/19/22 22:59 06:59 14:59 Other: Weight 79.379 kg - OBG Physical Exam Abdomen: bowel sounds normal, no diffuse tenderness, no bruit present, no guarding noted, no hepatomegaly, no splenomegaly, no mass Vulva: both: normal Vagina: normal moisture, no discharge Cervix: no lesion (Cervix is 6 cm dilated and patient has spontaneous rupture membranes here in triage for thick meconium fluid), no discharge Results labs show she is A positive, rubella nonimmune, RPR nonreactive, hepatitis B was negative, patient's drug screen was positive for methamphetamines. Assessment and Plan Assessment: This is a 31-year-old 6 para 3 female 37-3/7 weeks gestation admitted to labor and delivery in active labor and for the most part completely out of control. Patient has meconium-stained fluid and polysubstance abuse. Patient's had 2 previous sections. heart tones this time showed decreased variability. Plan is to proceed with immediate section and due to all the above clinical findings and patient's possible recent stroke evaluation plan is to do general anesthetic. I've discussed this with anesthesia and they ag jerrica to proceed with delivery by this method. Pcas be present for delivery. (1) 37 weeks gestation of Current Visit: Yes Status: Acute Code(s): Z3A.37 - 37 WEEKS GESTATION OF SNOMED Code(s): 44389926 (2) Previous delivery affecting Current Visit: Yes Status: Acute Code(s): O34.219 - MATERNAL CARE FOR UNSP TYPE SCAR FROM PREVIOUS DEL SNOMED Code(s): 695044191 (3) Polysubstance abuse Current Visit: Yes Status: Acute Code(s): F19.10 - OTHER PSYCHOACTIVE SUBSTANCE ABUSE, UNCOMPLICATED SNOMED Code(s): 744622793 (4) Active labor Current Visit: No Status: Acute Code(s): MAH7742 - SNOMED Code(s): 161069602 (5) Thick meconium stained amniotic fluid Current Visit: No Status: Acute Code(s): P96.83 - MECONIUM STAINING SNOMED Code(s): 121247409
--- NOTE | 2022-02-19 11:58 | P.OP ---
Date of Procedure: 02/19/22 Preoperative Diagnosis: #1: 37 and one sevenths week intrauterine . #2: Previous section 2. #3: Active labor. #4: Polysubstance abuse. #5: Noncompliance with care. #6: Thick meconium fluid Postoperative Diagnosis: Same Procedure(s) Performed: Repeat low transverse section Anesthesia: ARMIDA Surgeon: Harjeet Green Electronic Warfare Officer #1: Matilde Keene Estimated Blood Loss (ml): 1,500 Pathology: other (Placenta) Condition: stable Disposition: floor Indications for Procedure: Please see dictated H&P for intimate details of this patient's admission. Brief summary is a 31-year-old 6 para 3 female 37 and one sevenths weeks gestation who is admitted to labor and delivery in active labor, previous section 2, polysubstance abuse, and thrashing out of control. Patient's heart tones had decreased variability. Patient was recently admitted for evaluation of a stroke and had a thorough workup and the consensus is that she most likely did not have a stroke. Her symptoms were unexplained other than substance abuse. I recommended patient proceed with immediate section by general anesthesia secondary to the above findings. Patient understands and agrees to proceed. Patient's questions are answered written consent obtained. Operative Findings: This was a viable female Apgars 8 and 9 delivery time is 1002 hours. is covered with meconium fluid has malodorous fluid as well Description of Procedure: Patient is a Germain catheter placed to straight drain. Patient is subsequently taken to the operating room where a timeout was done. She has abdominal prep and drape. Patient undergoes rapid sequence endotracheal anesthesia. With an adequate level of anesthesia I take a scalpel and make a Pfannenstiel skin incision through the previous skin incision. A second scalpel is taken down the fascia the fascia scored with a knife. Fascial incision extended bilaterally using Astudillo scissors. Fascia is dissected off the rectus muscles. Rectus muscles are and the peritoneum was identified and entered sharply. Peritoneal incision extended superior and inferior without difficulty. Bladder blade is then placed. Scalpels and taken low transverse uterine incision is then made. Using a hemostat into the uterine cavity bluntly and there is loss of thick meconium fluid is malodorous. Infant's head is then guided through the incision and mouth and nares bulb suctioned. With fundal pressure the infant's head is delivered and the rest this infant's body. This is a viable female infant Apgars are 8 and 9 delivery time was 1002 hours. The umbilical cord is doubly clamped and cut infant is mainly handed off to the nurses and pediatricians in attendance. Placenta is then manually extracted intact. Uterus is quite boggy at this time she given 10 units of Pitocin IV push. Uterine incision demarcated Butler clamps and closed using 0 Vicryl running locked fashion 2 layers. Excellent hemostasis is noted. She continues to have some atony is also given some Methergine. Uterus, tubes, ovaries appear normal for term gestation. Excess fluid is removed from the abdomen and pelvis. [place] lon placed back into the abdomen. Parietal peritoneum closed in 0 Vicryl running fashion. Rectus muscles reapproximated Vicryl interrupted fashion. Fascial incision is closed using 0 PDS. Fascial incision is intact and hemostatic. Subcutaneous tissues and closed using a 3-0 Vicryl. Incision is then closed with sekou. Excellent reapproximation is noted. All counts are correct 3. There are no complications. Infant was taken special care and mother taken to her birthing suite in satisfactory condition.
[2022-02-19] MEDS: ACETAMINOPHEN TAB 500 MG TAB PO SCH ×2 (16:11→20:47)
[2022-02-19 16:43] LABS: Basophils # (A) 0.1 k/uL (0-0.2); Basophils % (A) 0 %; Eosinophils % (A) 0 %; HCT 28.4 % (34.0-46.0); HGB 9.3 gm/dL (11.4-16.0); Hypochromasia Moderate; Lymphocytes # (A) 2.5 k/uL (1.0-4.8); Lymphocytes % (A) 21 %; MCH 25.2 pg (25.0-35.0); MCHC 32.8 g/dL (31.0-37.0); MCV 76.8 fL (80.0-100.0); Mean Platelet Volume 8.3; Microcytosis Slight; Monocytes # (A) 0.8 k/uL (0-1.0); Monocytes % (A) 6 %; Neutrophils # (A) 8.6 k/uL (1.3-7.7); Neutrophils % (A) 71 %; Platelet Count 394 k/uL (150-450); RDW 15.5 % (11.5-15.5); WBC 12.2 k/uL (3.8-10.6)
[2022-02-19 16:44] LABS: Polychromasia Present
[2022-02-19 16:47] LABS: Appearance,Urine Cloudy (Clear); Bacteria,Urine Rare /hpf; Bilirubin,Urine Negative (Negative); Blood,Urine Negative (Negative); Color,Urine Yellow; Glucose,Urine (UA) Negative (Negative); Ketones,Urine Negative (Negative); Leukocyte Esterase,Urine Small (Negative); Mucus,Urine Rare /hpf; Nitrite,Urine Negative (Negative); Protein,Urine Trace (Negative); RBC,Urine 2 /hpf (0-5); Specific Gravity,Urine 1.018 (1.001-1.035); Squamous Epithelial Cell,Urine 1 /hpf (0-4); Urobilinogen,Urine <2.0 mg/dL (<2.0); WBC,Urine 5 /hpf (0-5)
[2022-02-19 16:48] LABS: Amphetamine Screen,Urine Detected (NotDetected); Barbiturate Screen,Urine Not Detected (NotDetected); Benzodiazepines Screen,Urine Not Detected (NotDetected); Cocaine Screen,Urine Not Detected (NotDetected); Methadone Screen, Urine Not Detected (NotDetected); Opiate Screen,Urine Not Detected (NotDetected); Oxycodone Screen, Urine Not Detected (NotDetected); Phencyclidine Screen,Urine Not Detected (NotDetected); Tricyclic Antidepressant,Urine Not Detected (NotDetected); Urn Cannabinoid Scrn Not Detected (NotDetected)
[2022-02-19] MEDS: LACTATED RINGERS 1,000 ML IV SCH ×2 (17:12→21:23)
[2022-02-19] MEDS: METHYLERGONOVINE 0.2 MG TAB PO SCH ×2 (17:13→23:01)
[2022-02-19] MEDS: KETOROLAC 15 MG/ML 1 ML VIAL IVP SCH ×2 (17:19→23:01)
[2022-02-19] MEDS: SENNOSIDES-DOCUSATE SODIUM 1 EACH TAB PO SCH (20:48)
[2022-02-20] MEDS: ACETAMINOPHEN TAB 500 MG TAB PO SCH ×4 (01:19→19:35)
[2022-02-20] MEDS: KETOROLAC 15 MG/ML 1 ML VIAL IVP SCH ×3 (05:25→17:33)
--- NOTE | 2022-02-20 07:12 | P.PNOBGPC ---
Subjective - Subjective Patient reports: Reports appetite normal, Reports voiding normally, Reports pain well controlled, Reports ambulating normally : doing well Objective - Vital Signs Latest vital signs: Vital Signs Temp Pulse Resp BP Pulse Ox 02/20/22 04:00 97.9 F 98 16 115/62 97 02/20/22 00:00 98.0 F 79 14 114/70 97 02/19/22 20:00 98.3 F 92 16 122/66 97 02/19/22 16:00 97.4 F L 90 17 121/81 96 02/19/22 12:45 85 17 129/70 02/19/22 12:12 97.0 F L 76 18 127/58 98 02/19/22 11:43 107 H 17 130/80 100 02/19/22 11:28 89 18 133/89 100 02/19/22 11:14 86 18 119/96 02/19/22 11:07 98 02/19/22 11:03 96.9 F L 112 H 20 125/63 98 02/19/22 11:00 96.9 F L 112 H 20 125/63 98 02/19/22 10:58 72 18 119/80 98 02/19/22 10:43 96.7 F L 95 18 125/86 98 Intake and Output 02/19/22 02/20/22 02/20/22 23:59 06:59 14:59 Intake Total Output Total Balance Intake: IV Output: Urine Uretheral (Germain) Output, Quantitative Blood Loss Other: Voiding Method - Exam Lungs: bilateral: normal Chest: Normal S1, Normal S2 Extremities: Present: normal Abdomen: Present: normal appearance, soft. Absent: distention, tenderness Incision: Present: normal, dry, intact Uterus: Present: normal, firm - Labs Labs: Abnormal Lab Results - Last 24 Hours (Table) 02/19/22 02/19/22 Range/Units 09:35 09:35 WBC 12.2 H (3.8-10.6) k/uL RBC 3.70 L (3.80-5.40) m/uL Hgb 9.3 L (11.4-16.0) gm/dL Hct 28.4 L (34.0-46.0) % MCV 76.8 L (80.0-100.0) fL Neutrophils # 8.6 H (1.3-7.7) k/uL Urine Appearance Cloudy H (Clear) Urine Protein Trace H (Negative) Ur Leukocyte Esterase Small H (Negative) Urine Bacteria Rare H (None) /hpf Urine Mucus Rare H (None) /hpf Ur Amphetamines Screen Detected H (NotDetected) U Methamphetamines Scrn Detected H (NotDetected) Assessment and Plan Assessment: Postoperative day #1. Patient is resting without new complaints. Vital signs are stable and she is afebrile. Her incision is intact and dry. She is having normal lochia. Hemoglobin yesterday prior to surgery was 9.3 and repeat today is still pending. Most likely this will be low because patient did have some atony at the time of delivery however this has resolved. 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 rn support services has been contacted in regards to her substance abuse and apparently the baby is up for adoption. (1) 37 weeks gestation of Current Visit: Yes Status: Acute Code(s): Z3A.37 - 37 WEEKS GESTATION OF SNOMED Code(s): 00589542 (2) Previous delivery affecting Current Visit: Yes Status: Acute Code(s): O34.219 - MATERNAL CARE FOR UNSP TYPE SCAR FROM PREVIOUS DEL SNOMED Code(s): 638280835 (3) Polysubstance abuse Current Visit: Yes Status: Acute Code(s): F19.10 - OTHER PSYCHOACTIVE SUBSTANCE ABUSE, UNCOMPLICATED SNOMED Code(s): 900793441 (4) Active labor Current Visit: No Status: Acute Code(s): OQL5154 - SNOMED Code(s): 820863801 (5) Thick meconium stained amniotic fluid Current Visit: No Status: Acute Code(s): P96.83 - MECONIUM STAINING SNOMED Code(s): 298800731
--- NOTE | 2022-02-20 07:44 | P.MSEPDOC ---
Presenting Problems - Arrival Data Date of Arrival on Unit: 02/19/22 Time of Arrival on Unit: 09:20 Mode of Transport: Wheelchair - Complaint OB-Reason for Admission/Chief Complaint: Possible Onset of Labor Comment: pt presents to triage for contractions and possible labor, pt is a repeat section Medical History - Information : 4 Para: 3 Term: 3 : 0 Abortions: Spontaneous or Elective: 0 Number of Living Children: 3 - Gestational Age Gestational Age by ZULEIMA (wks/days): 37 Weeks and 1 Days - History Complications: Prior , Smoker, Hx. Substance Abuse Comment: pt has a positve UDS today Review of Systems - Review of Systems Constitutional: No problems Breast: No problems ENT: No problems Cardiovascular: No problems Respiratory: No problems Gastrointestinal: No problems Genitourinary: No problems Musculoskeletal: No problems Neurological: No problems Skin: No problems Vital Signs - Temperature Temperature: 97.9 F Temperature Source: Axillary - Pulse Right Brachial Pulse Rate: 98 Pulse Assessment Method: Pulse Oximetry - Respirations Respiratory Rate: 16 Oxygen Delivery Method: Room Air O2 Sat by Pulse Oximetry: 97 - Blood Pressure Right Arm Blood Pressure: 115/62 Blood Pressure Mean: 79 Blood Pressure Source: Automatic Cuff Medical Screen Scoring - Cervical Exam Dilation (cm): 6 Effacement (%): 70 Station: -2 - Uterine Contractions Frequency From (mins): 5 Frequency To (mins): 6 Intensity: Strong - Assessment - Baby A Baseline FHR: 145 Heart Rate - NICHD Category: Category II (Indeterminate) NST: Non-reactive Physician Notification - Physician Notified Physician Notified Date: 02/19/22 Physician Notified Time: 09:30 Physician: Harjeet Green New Order Received: Yes - Notification Comment Comment: admit pt for repeat section, Maternal Triage Index - Maternal Triage Index Presenting for scheduled procedure w/no complaint: No - Stat/Priority 1 Stat Priority 1: No - Urgent/Priority 2 Urgent Priority 2: Yes Provider Notified: Harjeet Green Provider Notified Time: 09:30 Criteria Met for Priority 2: pt presents to triage for contractions and possible labor, pt is a repeat section Disposition - Disposition OB Disposition: Admit I agree with the RN Medical Screening Exam: Yes Case reviewed; plan agreed upon as documented in EMR&OBIX.: Yes Diagnosis: RELATED CONDITIONS, UNSPECIFIED, THIRD TRIMESTER (See admission history and physical and delivery note.)
[2022-02-20] MEDS: SENNOSIDES-DOCUSATE SODIUM 1 EACH TAB PO SCH ×2 (08:42→19:35)
[2022-02-20] MEDS: FERROUS SULFATE 325 MG TAB PO SCH ×2 (08:45→18:52)
[2022-02-20 08:46] LABS: Anisocytosis Slight; Basophils # (A) 0.1 k/uL (0-0.2); Basophils % (A) 0 %; Eosinophils % (A) 0 %; HCT 24.2 % (34.0-46.0); Hypochromasia Marked; Lymphocytes # (A) 2.4 k/uL (1.0-4.8); Lymphocytes % (A) 21 %; MCH 24.1 pg (25.0-35.0); MCHC 30.9 g/dL (31.0-37.0); MCV 78.1 fL (80.0-100.0); Mean Platelet Volume 9.1; Microcytosis Slight; Monocytes # (A) 0.7 k/uL (0-1.0); Monocytes % (A) 6 %; Neutrophils # (A) 7.7 k/uL (1.3-7.7); Neutrophils % (A) 68 %; Platelet Count 331 k/uL (150-450); RDW 16.2 % (11.5-15.5); WBC 11.3 k/uL (3.8-10.6)
[2022-02-20 08:52] LABS: HGB 7.5 gm/dL (11.4-16.0)
[2022-02-20] MEDS: METHYLERGONOVINE 0.2 MG TAB PO SCH (11:59)
[2022-02-20] MEDS: LACTATED RINGERS 1,000 ML IV SCH ×2 (12:00)
[2022-02-21] MEDS: KETOROLAC 15 MG/ML 1 ML VIAL IVP SCH (00:41)
[2022-02-21] MEDS ORDERED: IBUPROFEN 600 MG TAB PO SCH (05:00)
[2022-02-21] MEDS: ACETAMINOPHEN TAB 500 MG TAB PO SCH ×2 (05:39→08:05)
--- NOTE | 2022-02-21 06:33 | P.PNOBGPC ---
Subjective - Subjective Patient reports: Reports appetite normal, Reports voiding normally, Reports pain well controlled, Reports ambulating normally : doing well Objective - Vital Signs Latest vital signs: Vital Signs Temp Pulse Resp BP Pulse Ox 02/21/22 00:00 98.4 F 99 16 120/71 96 02/20/22 20:00 97.9 F 76 16 136/86 100 02/20/22 16:00 98.6 F 69 18 121/82 97 02/20/22 12:00 98.1 F 83 18 109/62 97 02/20/22 07:45 97.6 F 88 16 115/75 97 02/20/22 07:44 97.9 F 98 16 115/62 97 Intake and Output 02/20/22 02/20/22 02/21/22 14:59 22:59 06:59 Other: Voiding Method Toilet # Voids 1 1 3 # Bowel Movements 1 - Exam Lungs: bilateral: normal Chest: Normal S1, Normal S2 Extremities: Present: normal Abdomen: Present: normal appearance, soft. Absent: distention, tenderness Incision: Present: normal, dry, intact Uterus: Present: normal, firm - Labs Labs: Abnormal Lab Results - Last 24 Hours (Table) 02/20/22 Range/Units 08:15 WBC 11.3 H (3.8-10.6) k/uL RBC 3.10 L (3.80-5.40) m/uL Hgb 7.5 L D (11.4-16.0) gm/dL Hct 24.2 L (34.0-46.0) % MCV 78.1 L (80.0-100.0) fL MCH 24.1 L (25.0-35.0) pg MCHC 30.9 L (31.0-37.0) g/dL RDW 16.2 H (11.5-15.5) % Assessment and Plan Assessment: Postoperative day #2. Patient is resting without new complaints and wishes to go home. Vital signs are stable and she is afebrile. Hemoglobin yesterday was 7.5 which is consistent with her preoperative hemoglobin. I did start her on some iron already. Incision is intact and dry. She's having normal lochia. Patient's felt be stable for discharge home follow up with Dr. Mosqueda in 1 week. (1) 37 weeks gestation of Current Visit: Yes Status: Acute Code(s): Z3A.37 - 37 WEEKS GESTATION OF SNOMED Code(s): 18234215 (2) Previous delivery affecting Current Visit: Yes Status: Acute Code(s): O34.219 - MATERNAL CARE FOR UNSP TYPE SCAR FROM PREVIOUS DEL SNOMED Code(s): 585928931 (3) Polysubstance abuse Current Visit: Yes Status: Acute Code(s): F19.10 - OTHER PSYCHOACTIVE SUBSTANCE ABUSE, UNCOMPLICATED SNOMED Code(s): 167012764 (4) Active labor Current Visit: No Status: Acute Code(s): UTR3107 - SNOMED Code(s): 991700519 (5) Thick meconium stained amniotic fluid Current Visit: No Status: Acute Code(s): P96.83 - MECONIUM STAINING SNOMED Code(s): 692425105
--- NOTE | 2022-02-21 06:40 | P.DS ---
Providers Date of admission: 02/19/22 09:56 Expected date of discharge: 02/21/22 Attending physician: Harjeet Green Primary care physician: Stated None - Discharge Diagnosis(es) (1) 37 weeks gestation of Current Visit: Yes Status: Acute (2) Previous delivery affecting Current Visit: Yes Status: Acute (3) Polysubstance abuse Current Visit: Yes Status: Acute (4) Active labor Current Visit: No Status: Acute (5) Thick meconium stained amniotic fluid Current Visit: No Status: Acute Hospital Course: Please see dictated H&P and operative note on this patient's admission. Brief summary this is a 31-year-old 4 para 3 female 37-2/7 weeks gestation with limited care and methamphetamine abuse is admitted to labor and delivery in active labor and previous section. Patient undergoes a repeat low transverse section for viable female infant which was given up for adoption. Preoperative hemoglobin was 9.4 post operative hemoglobin was 7.5 consistent with chronic anemia. Patient started on some iron therapy. Patient does well postoperatively and on postoperative 2 felt be stable for discharge home follow up with Dr. Mosqueda in 1 week. Procedures: Repeat low transverse section Patient Condition at Discharge: Good Plan - Discharge Summary New Discharge Prescriptions: New Ferrous Sulfate [Iron (65 MG Elemental)] 325 mg PO BID-W/MEALS #60 tab Ibuprofen [Motrin] 600 mg PO Q6H #30 tab oxyCODONE HCL [OxyIR] 5 mg PO Q4HR PRN #18 tab PRN Reason: Pain Scale 4 - 6 No Action Cefdinir 300 mg PO Q12HR #2 cap Cyanocobalamin [Vitamin B-12] 1,000 mcg PO DAILY #30 tablet Aspirin 81 mg PO DAILY #30 tab Folic Acid 4 mg PO DAILY #30 tab Discharge Medication List Aspirin 81 mg PO DAILY #30 tab 02/15/22 [Rx] Cefdinir 300 mg PO Q12HR #2 cap 02/15/22 [Rx] Cyanocobalamin [Vitamin B-12] 1,000 mcg PO DAILY #30 tablet 02/15/22 [Rx] Folic Acid 4 mg PO DAILY #30 tab 02/15/22 [Rx] Ferrous Sulfate [Iron (65 MG Elemental)] 325 mg PO BID-W/MEALS #60 tab 02/21/22 [Rx] Ibuprofen [Motrin] 600 mg PO Q6H #30 tab 02/21/22 [Rx] oxyCODONE HCL [OxyIR] 5 mg PO Q4HR PRN #18 tab 02/21/22 [Rx] Follow up Appointment(s)/Referral(s): Elena Mosqueda DO [Doctor of Osteopathic Medicine] - 1 Week Patient Instructions/Handouts: (DC), Iron Deficiency Anemia (GEN), Iron Rich Diet (DC), Methamphetamine Abuse (ED) Activity/Diet/Wound Care/Special Instructions: No heavy lifting or strenuous activities for 6 weeks. Please call if any fever, chills, excessive vaginal bleeding, and/or abdominal pain. Discharge Disposition: HOME SELF-CARE
[2022-02-21] MEDS: SENNOSIDES-DOCUSATE SODIUM 1 EACH TAB PO SCH (08:05)
[2022-02-21] MEDS: FERROUS SULFATE 325 MG TAB PO SCH (08:05)
[2022-02-21 08:36] VITALS: BP 137/64; PULSE 96; RESP 17; TEMP 97.9
== END 2022-02-21 08:10 | disposition home or self-care (01) | DRG 787 ==
LOC: FBPOP 09:22 → 4FBP 09:56
PROVIDERS: ADMIT Obstetrics & Gynecology; ATTEND Obstetrics & Gynecology
PROC: 4A0HXCZ Measurement of Products of Conception, Cardiac Rate, External Approach (ICD-10-PCS; 2022-02-19)
PROC: 10D00Z1 Extraction of Products of Conception, Low, Open Approach (ICD-10-PCS; principal; 2022-02-19 10:00)
DX: O34.211 Maternal care for low transverse scar from previous cesarean delivery (principal); O72.1 Other immediate postpartum hemorrhage; O98.32 Other infections with a predominantly sexual mode of transmission complicating childbirth; O99.324 Drug use complicating childbirth; F15.10 Other stimulant abuse, uncomplicated; F17.210 Nicotine dependence, cigarettes, uncomplicated; F31.9 Bipolar disorder, unspecified; J45.909 Unspecified asthma, uncomplicated; O77.0 Labor and delivery complicated by meconium in amniotic fluid; A63.0 Anogenital (venereal) warts; O99.02 Anemia complicating childbirth; D64.9 Anemia, unspecified; O99.334 Smoking (tobacco) complicating childbirth; O99.344 Other mental disorders complicating childbirth; O99.52 Diseases of the respiratory system complicating childbirth; Z37.0 Single live birth; Z3A.37 37 weeks gestation of pregnancy; Z79.82 Long term (current) use of aspirin; Z91.199 Patient's noncompliance with other medical treatment and regimen due to unspecified reason
CPT/HCPCS: 59025; 80306; 81001; 85025; 86850; 86900; 86901; 99213

== ENCOUNTER 2022-10-14 20:50 | Emergency (ER) | payer OTHER ==
[2022-10-14 21:13] VITALS: TEMP 98.6
[2022-10-14] MEDS ORDERED: cefTRIAXone 1,000 MG VIAL (IM USE) IM STA (22:22)
[2022-10-14] MEDS ORDERED: PENICILLIN G BENZATHINE 1,200,000 UNIT/2 ML SYRINGE IM STA ×2 (23:00→23:10)
--- NOTE | 2022-10-14 23:03 | ED ---
Female Urogenital HPI - General Chief complaint: Urogenital Stated complaint: Abd Pain Time Seen by Provider: 10/14/22 21:16 Source: patient Mode of arrival: ambulatory Limitations: no limitations - History of Present Illness Initial comments: 31-year-old female presents to the ED with a chief complaint of urogenital complaints. Patient notes previously here and was given Valtrex for a possible herpes outbreak. Patient notes that this is currently ongoing, no relief with Valtrex. Additionally notes over the past week has had intermittent vaginal d ischarge. Notes that discharge is intermittently yellow/clear. Patient states that it occasionally has a fishy odor to it. Denies urinary symptoms. Denies chest pain or shortness of breath. No other complaints. Last Menstrual Period: 09/29/22 - Related Data Previous Rx's Medication Instructions Recorded Aspirin 81 mg PO DAILY #30 tab 02/15/22 Cefdinir 300 mg PO Q12HR #2 cap 02/15/22 Cyanocobalamin [Vitamin B-12] 1,000 mcg PO DAILY #30 tablet 02/15/22 Folic Acid 4 mg PO DAILY #30 tab 02/15/22 Ferrous Sulfate [Iron (65 MG 325 mg PO BID-W/MEALS #60 tab 02/21/22 Elemental)] Ibuprofen [Motrin] 600 mg PO Q6H #30 tab 02/21/22 oxyCODONE HCL [OxyIR] 5 mg PO Q4HR PRN #18 tab 02/21/22 Doxycycline [Vibramycin] 100 mg PO BID 7 Days #14 capsule 06/03/22 valACYclovir HCL [Valacyclovir] 1,000 mg PO BID 10 Days #20 tab 08/20/22 Doxycycline [Vibramycin] 100 mg PO BID 7 Days #14 capsule 10/14/22 Fluconazole [Diflucan] 150 mg PO DAILY #2 tab 10/14/22 metroNIDAZOLE [Flagyl] 500 mg PO BID 7 Days #14 tab 10/14/22 Allergies Allergy/AdvReac Type Severity Reaction Status Date / Time No Known Allergies Allergy Verified 10/14/22 21:13 Review of Systems ROS Statement: Those systems with pertinent positive or pertinent negative responses have been documented in the HPI. ROS Other: All systems not noted in ROS Statement are negative. Past Medical History Past Medical History: Cancer Additional Past Medical History / Comment(s): SKIN. Asthma. previous meth user. 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, Past Anesthesia/Blood Transfusion Reactions: No Reported Reaction Past Psychological History: Bipolar, Depression Smoking Status: Current every day smoker Past Alcohol Use History: None Reported Past Drug Use History: Methamphetamine - Past Family History Mother Family Medical History: Thyroid Disorder Additional Family Medical History / Comment(s): denies any family history of blood disorders and thrombosis General Exam Limitations: no limitations General appearance: alert, other (Pacing the room, appears anxious) Head exam: Present: atraumatic Respiratory exam: Present: normal lung sounds bilaterally Cardiovascular Exam: Present: regular rate, normal rhythm GI/Abdominal exam: Present: soft External exam: Present: other (Unless ulcer to the left labia majora no evidence of herpes) Neurological exam: Present: alert, oriented X3 Psychiatric exam: Present: anxious Skin exam: Present: warm, dry Course Vital Signs 10/14/22 21:05 Temperature 98.6 F Pulse Rate 116 H Respiratory 20 Rate Blood Pressure 116/69 O2 Sat by Pulse 100 Oximetry Medical Decision Making - Medical Decision Making Was pt. sent in by a medical professional or institution (KANE Skinner, CONTINUOUS MINING OPERATOR, urgent care, hospital, or fpc...) When possible be specific @ -No Did you speak to anyone other than the patient for history (EMS, parent, family, police, friend...)? What history was obtained from this source @ -No Did you review nursing and triage notes (agree or disagree)? Why? @ -I reviewed and agree with nursing and triage notes Were old charts reviewed (outside hosp., previous admission, EMS record, old EKG, old radiological studies, urgent care reports/EKG's, fpc records)? Report findings @ -View of old chart shows multiple visits to the ER with similar complaints. Previously prescribed Valtrex here. Differential Diagnosis (chest pain, altered mental status, abdominal pain women, abdominal pain men, vaginal bleeding, weakness, fever, dyspnea, syncope, headache, dizziness, GI bleed, back pain, seizure, CVA, palpatations, mental health, musculoskeletal)? @ -Chlamydia, gonorrhea, syphilis, PID. This is not meant to be an all- inclusive list. EKG interpreted by me (3pts min.). @ -None X-rays interpreted by me (1pt min.). @ -None done CT interpreted by me (1pt min.). @ -None done U/S interpreted by me (1pt. min.). @ -None done What testing was considered but not performed or refused? (CT, X-rays, U/S, labs)? Why? @ -None What meds were considered but not given or refused? Why? @ -None Did you discuss the management of the patient with other professionals (professionals i.e. , PA, CONTINUOUS MINING OPERATOR, lab, RT, psych nurse, social sciences department chair, dermatology physician assistant, teacher, retail loss prevention officer, bilingual case manager)? Give summary @ -No Was smoking cessation discussed for >3mins.? @ -No Was critical care preformed (if so, how long)? @ -No Were there social determinants of health that impacted care today? How? (Homelessness, low income, unemployed, alcoholism, drug addiction, transportation, low edu. Level, literacy, decrease access to med. care, residential, rehab)? @ -No Was there de-escalation of care discussed even if they declined (Discuss DNR or withdrawal of care, Hospice)? DNR status @ -No What co-morbidities impacted this encounter? (DM, HTN, Smoking, COPD, CAD, Cancer, CVA, ARF, Chemo, Hep., AIDS, mental health diagnosis, sleep apnea, morbid obesity)? @ -None Was patient admitted / discharged? Hospital course, mention meds given and route, prescriptions, significant lab abnormalities, going to OR and other pertinent info. @ -Discharge. Urine sample obtained to test for gonorrhea/chlamydia. With painless ulcer on exam, empirically treated for syphilis. High-Risk history with symptoms concerning for gonorrhea/chlamydia as well. Provided ceftriaxone 1 g as well in the ED. Provided prescription for doxycycline 7 days, Flagyl 7 days, and fluconazole for use after antibiotics. UA here shows possible UTI, covered with the Rocephin IM. Plain CT chest negative. Discussed return precautions with patient who verbalizes agreement. Undiagnosed new problem with uncertain prognosis? @ -No Drug Therapy requiring intensive monitoring for toxicity (Heparin, Nitro, Insulin, Cardizem)? @ -No Were any procedures done? @ -No Diagnosis/symptom? @ -STDs Acute, or Chronic, or Acute on Chronic? @ -Acute Uncomplicated (without systemic symptoms) or Complicated (systemic symptoms)? @ -Uncomplicated Side effects of treatment? @ -No Exacerbation, Progression, or Severe Exacerbation? @ -No Poses a threat to life or bodily function? How? (Chest pain, [place], [place], pneumonia, PE, COPD, DKA, ARF, appy, cholecystitis, CVA, Diverticulitis, Homicidal, Suicidal, threat to staff... and all critical care pts) @ -No - Lab Data Lab Results 10/14/22 10/14/22 Range/Units 22:50 22:50 Urine Color Yellow Urine Appearance Clear (Clear) Urine pH 7.0 (5.0-8.0) Ur Specific [place] 1.024 (1.001-1.035) Urine Protein Negative (Negative) Urine Glucose (UA) Negative (Negative) Urine Ketones Negative (Negative) Urine Blood Negative (Negative) Urine Nitrite Negative (Negative) Urine Bilirubin Negative (Negative) Urine Urobilinogen <2.0 (<2.0) mg/dL Ur Leukocyte Esterase Large H (Negative) Urine RBC 6 H (0-5) /hpf Urine WBC 7 H (0-5) /hpf Ur Squamous Epith Cells 5 H (0-4) /hpf Urine Mucus Occasional H (None) /hpf Urine HCG, Qual Not Detected (Not Detectd) Disposition Clinical Impression: STD (female) Disposition: HOME SELF-CARE Condition: Good Instructions (If sedation given, give patient instructions): Sexually Transmitted Diseases (ED) Prescriptions: Fluconazole [Diflucan] 150 mg PO DAILY #2 tab metroNIDAZOLE [Flagyl] 500 mg PO BID 7 Days #14 tab Doxycycline [Vibramycin] 100 mg PO BID 7 Days #14 capsule Is patient prescribed a controlled substance at d/c from ED?: No Referrals: None,Stated [Primary Care Provider] - 1-2 days Time of Disposition: 22:50
[2022-10-14 23:21] LABS: Appearance,Urine Clear (Clear); Bilirubin,Urine Negative (Negative); Blood,Urine Negative (Negative); Color,Urine Yellow; Glucose,Urine (UA) Negative (Negative); Ketones,Urine Negative (Negative); Leukocyte Esterase,Urine Large (Negative); Mucus,Urine Occasional /hpf; Nitrite,Urine Negative (Negative); Protein,Urine Negative (Negative); RBC,Urine 6 /hpf (0-5); Specific Gravity,Urine 1.024 (1.001-1.035); Squamous Epithelial Cell,Urine 5 /hpf (0-4); Urobilinogen,Urine <2.0 mg/dL (<2.0); WBC,Urine 7 /hpf (0-5)
[2022-10-14 23:50] VITALS: BP 119/79; PULSE 110; RESP 18
== END 2022-10-14 23:49 | disposition home or self-care (01) ==
LOC: EC 20:50
DX: A64 Unspecified sexually transmitted disease (principal); F17.200 Nicotine dependence, unspecified, uncomplicated; F15.10 Other stimulant abuse, uncomplicated; Z86.59 Personal history of other mental and behavioral disorders
CPT/HCPCS: 81001; 81025; 99284; 96372 ×3; J0561; J0696

== ENCOUNTER 2024-02-27 03:11 | Emergency (ER) | payer OTHER ==
[2024-02-27 03:16] VITALS: RESP 18; TEMP 98
--- NOTE | 2024-02-27 03:23 | ED ---
General Adult HPI - General Chief complaint: Skin/Abscess/Foreign Body Stated complaint: Rash on arm Time Seen by Provider: 02/27/24 03:18 Source: patient, RN notes reviewed Mode of arrival: ambulatory Limitations: no limitations - History of Present Illness Initial comments: 33-year-old female presents to the emergency department with complaint of bilat eral arm rash. States it seems to be spreading, itchy states there is some drainage from an open wound. Patient states that she was digging for some stuff and states that she got into something. Patient states she also has some itchy rash with drainage. - Related Data Previous Rx's Medication Instructions Recorded Aspirin 81 mg PO DAILY #30 tab 02/15/22 Cefdinir 300 mg PO Q12HR #2 cap 02/15/22 Cyanocobalamin [Vitamin B-12] 1,000 mcg PO DAILY #30 tablet 02/15/22 Folic Acid 4 mg PO DAILY #30 tab 02/15/22 Ferrous Sulfate [Iron (65 MG 325 mg PO BID-W/MEALS #60 tab 02/21/22 Elemental)] Ibuprofen [Motrin] 600 mg PO Q6H #30 tab 02/21/22 oxyCODONE HCL [OxyIR] 5 mg PO Q4HR PRN #18 tab 02/21/22 Doxycycline [Vibramycin] 100 mg PO BID 7 Days #14 capsule 06/03/22 valACYclovir HCL [Valacyclovir] 1,000 mg PO BID 10 Days #20 tab 08/20/22 Doxycycline [Vibramycin] 100 mg PO BID 7 Days #14 capsule 10/14/22 Fluconazole [Diflucan] 150 mg PO DAILY #2 tab 10/14/22 metroNIDAZOLE [Flagyl] 500 mg PO BID 7 Days #14 tab 10/14/22 Cephalexin [Keflex] 500 mg PO Q6HR #28 cap 02/27/24 Triamcinolone 0.1% Cream [Kenalog 1 applicatio TOPICAL BID #15 gram 02/27/24 0.1% Cream] Allergies Allergy/AdvReac Type Severity Reaction Status Date / Time No Known Allergies Allergy Verified 02/27/24 03:16 Review of Systems ROS Statement: Those systems with pertinent positive or pertinent negative responses have been documented in the HPI. ROS Other: All systems not noted in ROS Statement are negative. Past Medical History Past Medical History: Cancer Additional Past Medical History / Comment(s): SKIN. Asthma. previous meth user. 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, Past Anesthesia/Blood Transfusion Reactions: No Reported Reaction Past Psychological History: Bipolar, Depression Smoking Status: Current every day smoker Past Alcohol Use History: None Reported Past Drug Use History: Methamphetamine - Past Family History Mother Family Medical History: Thyroid Disorder Additional Family Medical History / Comment(s): denies any family history of blood disorders and thrombosis General Exam Limitations: no limitations General appearance: alert, in no apparent distress Head exam: Present: atraumatic, normocephalic, normal inspection Eye exam: Present: normal appearance, PERRL, EOMI. Absent: scleral icterus, conjunctival injection, periorbital swelling ENT exam: Present: normal exam, normal oropharynx, mucous membranes moist Neck exam: Present: normal inspection, full ROM. Absent: tenderness, meningismus, lymphadenopathy Respiratory exam: Present: normal lung sounds bilaterally. Absent: respiratory distress, wheezes, rales, rhonchi, stridor Cardiovascular Exam: Present: regular rate, normal rhythm, normal heart sounds. Absent: systolic murmur, diastolic murmur, rubs, gallop, clicks Extremities exam: Present: other (Bilateral arms are erythematous urticaria with excoriations and cellulitic changes) Course Vital Signs 02/27/24 02/27/24 03:14 03:34 Temperature 98 F Pulse Rate 107 H 101 H Respiratory 18 18 Rate Blood Pressure 124/86 128/85 O2 Sat by Pulse 98 100 Oximetry Medical Decision Making - Medical Decision Making Was pt. sent in by a medical professional or institution (, PA, MICROGRINDER OPERATOR, urgent care, hospital, or longterm...) When possible be specific @ -No Did you speak to anyone other than the patient for history (EMS, parent, family, police, friend...)? What history was obtained from this source @ -No Did you review nursing and triage notes (agree or disagree)? Why? @ -I reviewed and agree with nursing and triage notes Were old charts reviewed (outside hosp., previous admission, EMS record, old EKG, old radiological studies, urgent care reports/EKG's, longterm records)? Report findings @ -No old charts were reviewed Differential Diagnosis (chest pain, altered mental status, abdominal pain women, abdominal pain men, vaginal bleeding, weakness, fever, dyspnea, syncope, headache, dizziness, GI bleed, back pain, seizure, CVA, palpatations, mental health, musculoskeletal)? @ -Contact dermatitis, cellulitis, allergic reaction EKG interpreted by me (3pts min.). @ -None X-rays interpreted by me (1pt min.). @ -None done CT interpreted by me (1pt min.). @ -None done U/S interpreted by me (1pt. min.). @ -None done What testing was considered but not performed or refused? (CT, X-rays, U/S, labs)? Why? @ -None What meds were considered but not given or refused? Why? @ -None Did you discuss the management of the patient with other professionals (professionals i.e. , PA, MICROGRINDER OPERATOR, lab, RT, psych nurse, psychologist social, logistics operations director, teacher, light armored reconnaissance officer, medical case manager)? Give summary @ -No Was smoking cessation discussed for >3mins.? @ -No Was critical care preformed (if so, how long)? @ -No Were there social determinants of health that impacted care today? How? (Homelessness, low income, unemployed, alcoholism, drug addiction, transportation, low edu. Level, literacy, decrease access to med. care, intermediate, rehab)? @ -No Was there de-escalation of care discussed even if they declined (Discuss DNR or withdrawal of care, Hospice)? DNR status @ -No What co-morbidities impacted this encounter? (DM, HTN, Smoking, COPD, CAD, Cancer, CVA, ARF, Chemo, Hep., AIDS, mental health diagnosis, sleep apnea, morbid obesity)? @ -None Was patient admitted / discharged? Hospital course, mention meds given and route, prescriptions, significant lab abnormalities, going to OR and other pertinent info. @ -Discharge patient has negative contact dermatitis with secondary cellulitic changes with open wound. Patient starting antibiotics, steroids. Undiagnosed new problem with uncertain prognosis? @ -No Drug Therapy requiring intensive monitoring for toxicity (Heparin, Nitro, Insulin, Cardizem)? @ -No Were any procedures done? @ -No Diagnosis/symptom? @ -Dermatitis cellulitis Acute, or Chronic, or Acute on Chronic? @ -Acute Uncomplicated (without systemic symptoms) or Complicated (systemic symptoms)? @ -Uncomplicated Side effects of treatment? @ -No Exacerbation, Progression, or Severe Exacerbation? @ -No Poses a threat to life or bodily function? How? (Chest pain, [place], [place], pneumonia, PE, COPD, DKA, ARF, appy, cholecystitis, CVA, Diverticulitis, Homicidal, Suicidal, threat to staff... and all critical care pts) @ -No Disposition Clinical Impression: Contact dermatitis Disposition: HOME SELF-CARE Condition: Stable Instructions (If sedation given, give patient instructions): Contact Dermatitis (ED) Additional Instructions: Please return to the Emergency department for worsening symptoms or any other concerns Prescriptions: Cephalexin [Keflex] 500 mg PO Q6HR #28 cap Triamcinolone 0.1% Cream [Kenalog 0.1% Cream] 1 applicatio TOPICAL BID #15 gram Is patient prescribed a controlled substance at d/c from ED?: No Referrals: None,Stated [Primary Care Provider] - 1-2 days Time of Disposition: 03:23
[2024-02-27] MEDS: predniSONE 50 MG TAB PO STA (03:31)
[2024-02-27 03:40] VITALS: BP 128/85; PULSE 101
== END 2024-02-27 03:34 | disposition home or self-care (01) ==
LOC: EC 03:11
DX: L25.9 Unspecified contact dermatitis, unspecified cause (principal); F17.200 Nicotine dependence, unspecified, uncomplicated
CPT/HCPCS: 99282; J7512

== ENCOUNTER → 2024-10-11 | Outpatient (CLI) | payer OTHER ==
--- NOTE | 2024-10-13 15:40 | US ---
EXAMINATION TYPE: US OB >= 14 wk fetus DATE OF EXAM: 10/11/2024 COMPARISON: None CLINICAL INDICATION: Female, 33 years old with history of [id number], [id number] ROUTINE CARE; first U S with this TECHNIQUE: OBTA FINDINGS: GESTATIONAL AGE / DATING Physician Established: (22 weeks/0 days) EDC: 02/14/2025 Dates by LMP: LMP unknown Dates by First Scan: No previous this is first scan Dates by Current Scan: (24 weeks/3 days) EDC: 01/28/2025 SURVEY IUP: Single PLACENTA: Posterior PREVIA: No Previa EMILY: 17.8 cm Normal CERVICAL LENGTH (transabdominal: norm > 3.0cm): 3.0 cm BIOMETRY PRESENTATION: Breech LIE: Longitudinal BPD: 5.7 cm 23 weeks / 4 days HC: 21.6 cm 23 weeks / 5 days AC: 22.2 cm 26 weeks / 5 days FL: 4.1 cm 23 weeks / 3 days ESTIMATED WEIGHT IN GRAMS: 756 grams ESTIMATED WEIGHT IN LBS/OZ: 1 lbs. 11 oz. WEIGHT PERCENTAGE BASED ON ESTABLISHED DATES: 98% HC/AC: 1.0 FL/AC: 18% HEART RATE: 153 bpm RHYTHM: Normal IMPRESSION: 1. Single live intrauterine with established gestational age of 22 weeks 0 days. Current ul trasound biometry is larger at 24 weeks 3 days placing the child at the 98th percentile for weight. C linically correlate and follow-up as clinically indicated to exclude LGA. 2. Breech presentation. Posterior placenta without previa. 3. Exam was not performed as a survey. [facility], Workstation: [email or web address], 10/13/2024 3:38 PM
== END | disposition home or self-care (01) ==
LOC: RADUSWWP 13:28
DX: O32.1XX0 Maternal care for breech presentation, not applicable or unspecified (principal); Z3A.24 24 weeks gestation of pregnancy
CPT/HCPCS: 76805